=== PATIENT | male | born 1940 | race Caucasian/White ===

== ENCOUNTER → 2019-02-16 | Outpatient (CLI) | payer OTHER, MEDICARE ==
[~2019-02-16] MED LIST: ACET-93 PO; ASPI-983 PO; ASPI-999 PO; ATOR10TA66 PO; ATOR20TA66 PO; CLOP75TA28 PO; GLIM2TAB PO; INSU100I29 SQ; METF-397 PO; METO-387 PO
== END ==
LOC: LABNPT 14:23
PROVIDERS: ATTEND Nurse Practitioner Family
DX: Z01.89 Encounter for other specified special examinations (principal)
CPT/HCPCS: 85652

== ENCOUNTER → 2019-04-13 | Outpatient (CLI) | payer MEDICARE ==
[2019-04-13 10:47] LABS: BASOPHILS % (AUTO) 0 % (0-10); EOSINOPHILS % (AUTO) 0 % (0-10); HEMATOCRIT 39 % (40-54); HEMOGLOBIN 13.1 G/DL (13.3-17.7); LYMPHOCYTES # (AUTO) 2.4 X 10^3 (1.0-4.0); LYMPHOCYTES % (AUTO) 49 % (12-44); MEAN CORPUSCULAR HEMOGLOBIN 28 PG (25-34); MEAN CORPUSCULAR HGB CONC 33 G/DL (32-36); MEAN CORPUSCULAR VOLUME 84 FL (80-99); MEAN PLATELET VOLUME 9.7 FL (7.4-10.4); MONOCYTES # (AUTO) 0.3 X 10^3 (0.0-1.0); MONOCYTES % (AUTO) 5 % (0-12); NEUTROPHILS # (AUTO) 2.2 X 10^3 (1.8-7.8); NEUTROPHILS % (AUTO) 45 % (42-75); PLATELET COUNT 362 10^3/uL (130-400); RED CELL DISTRIBUTION WIDTH 13.3 % (10.0-14.5); WHITE BLOOD COUNT 4.8 10^3/uL (4.3-11.0)
[2019-04-13 11:21] LABS: ALANINE AMINOTRANSFERASE 47 U/L (0-55); ALBUMIN 3.4 GM/DL (3.2-4.5); ALKALINE PHOSPHATASE 69 U/L (40-136); BILIRUBIN,TOTAL 0.4 MG/DL (0.1-1.0); BUN/CREATININE RATIO 22; CALCIUM 9.9 MG/DL (8.5-10.1); CARBON DIOXIDE 29 MMOL/L (21-32); CHLORIDE 103 MMOL/L (98-107); CREATININE SERUM 1.13 MG/DL (0.60-1.30); GFR ESTIMATED > 60; GLUCOSE 180 MG/DL (70-105); POTASSIUM 4.6 MMOL/L (3.6-5.0); SODIUM 141 MMOL/L (135-145); TOTAL PROTEIN 7.2 GM/DL (6.4-8.2)
--- NOTE | 2019-04-13 11:29 | Diagnostic Imaging Report ---
INDICATION: History of osteomyelitis. COMPARISON: None FINDINGS: 3 radiographic views of the left foot were obtained. Patient is status post previous amputation of the left great toe. There is gross deformity involving the main first metatarsal. Some areas of underlying lucency are noted. One cannot exclude underlying osteolytic process. Note is also made of probable osteolysis involving the distal phalanx of the second toe. No unexpected radiopaque foreign bodies are seen. Moderate degenerative changes of the midfoot are noted. IMPRESSION: 1. Previous amputation of the great toe of the left foot. 2. Gross deformity of the first metatarsal. Osteomyelitis cannot be excluded based on radiographs alone. If there is concern for osteomyelitis, MRI is recommended. 3. Probable erosive process to the second distal phalanx also concerning for underlying osteomyelitis. Dictated by: Dictated on workstation # [id number]
== END ==
LOC: RAD 10:13
PROVIDERS: ATTEND Surgery
DX: E11.621 Type 2 diabetes mellitus with foot ulcer (principal); E11.42 Type 2 diabetes mellitus with diabetic polyneuropathy; L97.526 Non-pressure chronic ulcer of other part of left foot with bone involvement without evidence of necrosis; Z87.39 Personal history of other diseases of the musculoskeletal system and connective tissue; Z89.412 Acquired absence of left great toe
CPT/HCPCS: 36415; 73630; 80053; 83036; 84134; 85025

== ENCOUNTER → 2019-04-13 | Outpatient (CLI) | payer MEDICARE | LOC: WOUNDCARE 08:03 | PROVIDERS: ATTEND Surgery | DX: E11.621 Type 2 diabetes mellitus with foot ulcer (principal); E11.42 Type 2 diabetes mellitus with diabetic polyneuropathy; E11.52 Type 2 diabetes mellitus with diabetic peripheral angiopathy with gangrene; L97.526 Non-pressure chronic ulcer of other part of left foot with bone involvement without evidence of necrosis; I96 Gangrene, not elsewhere classified; M86.472 Chronic osteomyelitis with draining sinus, left ankle and foot | CPT/HCPCS: 11042; 87070; 87077; 87205 ==

== ENCOUNTER → 2019-06-15 | Outpatient (CLI) | payer MEDICARE | LOC: WOUNDCARE 08:04 | PROVIDERS: ATTEND Surgery | DX: E11.621 Type 2 diabetes mellitus with foot ulcer (principal); E11.42 Type 2 diabetes mellitus with diabetic polyneuropathy; L97.522 Non-pressure chronic ulcer of other part of left foot with fat layer exposed; I70.245 Atherosclerosis of native arteries of left leg with ulceration of other part of foot | CPT/HCPCS: 99214 ==

== ENCOUNTER → 2019-07-22 | Outpatient (CLI) | payer MEDICARE | LOC: WOUNDCARE 11:01 | PROVIDERS: ATTEND Surgery | DX: E11.621 Type 2 diabetes mellitus with foot ulcer (principal); E11.42 Type 2 diabetes mellitus with diabetic polyneuropathy; E11.52 Type 2 diabetes mellitus with diabetic peripheral angiopathy with gangrene; L97.522 Non-pressure chronic ulcer of other part of left foot with fat layer exposed; I70.245 Atherosclerosis of native arteries of left leg with ulceration of other part of foot | CPT/HCPCS: 99213 ==

== ENCOUNTER 2019-09-01 08:24 | Outpatient (RCR) | payer MEDICARE ==
[~2019-09-01 08:24] MED LIST changes: -GLIM2TAB PO; +GLIM2TAB2 PO; -METO-387 PO; +MTP25TSR PO
== END 2019-09-01 12:00 | disposition home or self-care (01) ==
LOC: WOUNDCARE 08:24
PROVIDERS: ATTEND Orthopaedic Surgery Hand Surgery
DX: E11.621 Type 2 diabetes mellitus with foot ulcer (principal); E11.42 Type 2 diabetes mellitus with diabetic polyneuropathy; L97.522 Non-pressure chronic ulcer of other part of left foot with fat layer exposed; I70.245 Atherosclerosis of native arteries of left leg with ulceration of other part of foot
CPT/HCPCS: 82962; 99183; 99211

== ENCOUNTER 2019-09-11 13:58 | Inpatient (IN) | payer MEDICARE ==
[~2019-09-11] VITALS: Ht 182.9 cm; Wt 104.1 kg
[2019-09-14] MEDS ORDERED: FLEET ENEMA ADULT 1 EA BTL PR PRN (12:45)
[2019-09-14] MEDS ORDERED: ALPRAZolam 0.25 MG (XANAX) TAB PO PRN (12:45)
[2019-09-14] MEDS ORDERED: ONDANSETRON 4 MG (ZOFRAN) ORAL DISSOLVE TAB PO PRN (12:45)
[2019-09-14] MEDS ORDERED: diphenhydrAMINE 25 MG TAB (BENADRYL) PO PRN (12:45)
[2019-09-14] MEDS ORDERED: BISACODYL 10 MG SUPP (DULCOLAX) PR PRN (12:45)
[2019-09-14] MEDS ORDERED: DOCUSATE SODIUM 100 MG (COLACE) CAP PO PRN (12:45)
[2019-09-14] MEDS ORDERED: CALCIUM CARBONATE 500 MG (TUMS) TAB.CHEW PO PRN (12:45)
[2019-09-14] MEDS ORDERED: MELATONIN 3 MG TABLET PO PRN (12:45)
[2019-09-14] MEDS ORDERED: LACTULOSE SYRUP 10GM/15ML (ENULOSE) 30ML UDC PO PRN (12:45)
[2019-09-14] MEDS ORDERED: LOPERAMIDE 2 MG (IMODIUM) TABLET PO PRN (12:45)
[2019-09-14] MEDS ORDERED: guaiFENesin/CODEINE (ROBITUSSIN AC) 10ML UDC PO PRN (12:45)
[2019-09-14] MEDS ORDERED: ASPI-999 PO (15:31)
[2019-09-14] MEDS ORDERED: MTP25TSR PO (15:36)
[2019-09-14] MEDS ORDERED: SITA100T12 PO (15:36)
[2019-09-14] MEDS ORDERED: POLY17PO6 PO (15:36)
[2019-09-14] MEDS ORDERED: MELO7.5T46 PO (15:36)
[2019-09-14] MEDS ORDERED: CLOP75TA69 PO (15:36)
[2019-09-14] MEDS ORDERED: GABA-486 PO (15:36)
[2019-09-14] MEDS ORDERED: ATOR20TA66 PO (15:36)
[2019-09-14] MEDS ORDERED: SENN-145 PO (15:36)
--- NOTE | 2019-09-14 15:38 | NUR ---
ENTERED THE MED REC USING THE DISCHARGE FROM AFTER I SPEAK WITH THE PT I WILL UPDATE THE MED REC AND NOTES NEEDED Addendum: 09/15/19 at 1426 by KRISTAL CONNOR [facility] SPOKE WITH THE PT, WENT THRU THE EXT MED HISTORY ,CALLED [employer] [facility] AND CALLED HER EYE DR TO COMPLETE THE MED REC. THE DISCHARGE ORDER FROM [facility] ARE TO START: FUROSEMIDE 40MG 1 DAILY POTASSIUM 10 MEQ: 1 DAILY PER DISCHARGE SHE IS TO STOP: BYSTOLIC 5MG 1 DAILY TIMOLOL: THIS WAS ON THE DISCHARGE TO CONTINUE USE AND THE PT SAID SHE DOES USE THIS EYE DROP. HOWEVER WHEN I CHECKED WITH [facility] THEY HAD NOT FILLED THIS MEDICATION FOR AT LEAST 6 MONTHS. I THEM REACHED OUT TO DR. KRUNAL REA TO SEE IF SAMPLES COULD EXPLAIN THIS LAPSE IN FILLING- UNFORTUNATELY THEY DID NOT HAVE SAMPLES OF THIS MEDICATION. DUE TO THIS I HAVE LEFT THIS OFF THE FINAL MED REC ESTRACE 0.5MG TAKE 1 TAB TWICE WEEKLY (MON AND FRI) HOWEVER THIS IS NOT LISTED ON THE DISCHARGE ORDERS. I DID INCLUDE THIS IN THE FINAL MED REC AND I HAVE REACHED OUT TO [facility] FOR CLARIFICATION. OXYBUTYNIN ER: DISCHARGE SAYS TO TAKE OXYBUTYNIN ER 5MG- AND THE NEXT LINE SAYS 10MG /ORAL/ONCE A DAY. SHE PREVIOUSLY WAS ON THE 10MG BUT I DID PUT ON THE FIRST MED REC THE OXYBUTYNIN ER 5MG NOT REALIZING THE DISCREPANCY. I HAVE PUT IN A CALL THE [facility] TO FIND OUT WHICH STRENGTH THEY WANTED TO DISCHARGE HER WITH AND WHEN I HEAR FROM THEM I WILL UPDATE MED REC/NOTES NEEDED. Addendum: 09/15/19 at 1513 by KRISTAL CONNOR CPhT DISREGARD THE ABOVE NOTE ABOUT DAVE MARTINEZ
[2019-09-14 17:30] VITALS: BP 148/71
--- NOTE | 2019-09-14 17:30 | NUR ---
Diamante Shira admitted to room 224-1, with an admitting diagnosis of left BKA, on 09/14/19 from via private vehicle, accompanied by family.SHIRA RAMIREZ introduced to surroundings, call light, bed controls, phone, TV, temperature control, lights, meal times, smoking policy, visitor policy, side rail policy, bathrooms and showers. Patient Rights given to patient in the handbook.SHIRA RAMIREZ verbalizes understanding that [facility] is not responsible for the loss or damage to any personal effects or valuables that are kept in the patients posession during their hospitalization. The following Patient Care Plans were discussed with the patient: Discharge Planning, impaired mobility and amputation. SHIRA RAMIREZ verbalizes understanding of Interdisciplinary Patient Education. Patient and/or family were informed about the Rapid Response Team and its purpose. Patient received Patient Rights Booklet, which includes Privacy Act Statement and Data Collection Information Summary.
[2019-09-14 17:52] VITALS: BP 148/71
--- NOTE | 2019-09-14 18:30 | PM&R Post Admission Assessment ---
PM&R HP Date of Visit: Sep 14, 2019 Time of Visit: 18:30 History of Present Illness CC: Left BKA HPI: This is an 79yoWM clinic patient of Dr Reaves and Dr Callejas who presents to IRF in need of recovery following a lengthy hospital course for left DM ulcer which ultimately failed aggressive wound care management and required a left BKA. DM remains somewhat labile post op but overall he has recovered well and ready to participate in therapy in order to return home with his of 59 years. PLOF was independent of all ADL's. 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[place]) Alcohol Use: Denies Use Alcohol Beverage of Choice: Whiskey Smoking Status: Never a Smoker Type Used: Cigars Recent Foreign Travel: No Contact w/other who traveled: No Recent Hopitalizations: No Recent Infectious Disease Expo: No Immunizations Up To Date Date of Pneumonia Vaccine: May 28, 2017 Date of Influenza Vaccine: May 28, 2018 Seasonal Allergies Seasonal Allergies: Yes Past Medical History Surgeries: Orthopedic Respiratory: Sleep Apnea Currently Using CPAP: Yes Currently Using BIPAP: No Cardiac: High Cholesterol, Hypertension, Peripheral Vascular Neurological: Neuropathy Genitourinary: Kidney Stones Endocrine: Diabetes, Non-Insulin dep History of Blood Disorders: No PM&R Allergy/Meds/Data Review Allergies Coded Allergies: iodine (Verified Allergy, Unknown, 09/28/17) Home Medications Scheduled Aspirin (Aspirin), 81 MG PO DAILY WITH FOOD, (Reported) Atorvastatin Calcium (Atorvastatin Calcium), 20 MG PO DAILY, (Reported) Clopidogrel Bisulfate (Plavix), 75 MG PO DAILY, (Reported) Gabapentin (Gabapentin), 200 MG PO TID, (Reported) Glimepiride (Glimepiride), 2 MG PO BID, (Reported) Insulin Detemir (Levemir Flextouch), 45 UNITS SQ DAILY, (Reported) Meloxicam (Meloxicam), 7.5 MG PO DAILY, (Reported) Metoprolol Succinate (Metoprolol Succinate), 25 MG PO DAILY, (Reported) Sennosides/Docusate Sodium (Senna S Tablet), 1 EACH PO BID, (Reported) Sitagliptin Phosphate (Januvia), 100 MG PO DAILY, (Reported) Scheduled PRN Acetaminophen (Acetaminophen), 1,000 MG PO Q6H PRN for PAIN-MILD, (Reported) Polyethylene Glycol 3350 (Miralax), 17 GM PO DAILY PRN for CONSTIPATION-2ND LINE, (Reported) Discontinued Medications Aspirin (Aspirin), 81 MG PO DAILY Discontinued Reason: Duplicate Order Atorvastatin Calcium (Atorvastatin Calcium), 20 MG PO DAILY Discontinued Reason: Duplicate Order Clopidogrel Bisulfate (Clopidogrel), 75 MG PO DAILY Discontinued Reason: Duplicate Order Metformin HCl (Metformin HCl), 1,000 MG PO 0800,1700, (Reported) Discontinued Reason: No Longer Taking Metformin HCl (Metformin HCl), 500 MG PO 1200, (Reported) Discontinued Reason: No Longer Taking Metoprolol Succinate (Metoprolol Succinate), 25 MG PO DAILY Discontinued Reason: No Longer Taking Current Medications Current Medications Reviewed Laboratory Data Laboratory Tests 09/14/19 17:58: Glucometer 239H Review of Systems Constitutional: see HPI, weakness Musculoskeletal: other (left stump discomfort) Physical Exam Physical Exam Vital Signs Vital Signs - First Documented 09/14/19 17:30 Temp 36.4 Pulse 76 Resp 16 B/P (MAP) 148/71 (96) Pulse Ox 96 O2 Delivery Room Air Capillary Refill : Height, Weight, BMI Height: 6'0.00" Weight: 245lbs. 0.0oz. 111.638655ml; 31.53 BMI Method: General Appearance: No Apparent Distress, WD/WN Eyes: Bilateral Eye Normal Inspection, Bilateral Eye PERRL HEENT: PERRL/EOMI, Normal ENT Inspection, Pharynx Normal Neck: Full Range of Motion, Normal Inspection, Non Tender, Supple, Carotid Bruit Respiratory: Chest Non Tender, Lungs Clear, Normal Breath Sounds, No Accessory Muscle Use, No Respiratory Distress Cardiovascular: Regular Rate, Rhythm, No Edema, No Gallop, No JVD, No Murmur, Normal Peripheral Pulses Gastrointestinal: Normal Bowel Sounds, No Organomegaly, No Pulsatile Mass, Non Tender, Soft Back: Normal Inspection, No CVA Tenderness, No Vertebral Tenderness Extremity: Normal Capillary Refill, Normal Inspection, Normal Range of Motion, Non Tender, No Calf Tenderness, No Pedal Edema, Other (left BKA) Neurologic/Psychiatric: Alert, Oriented x3, No Motor/Sensory Deficits, Normal 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, 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 Norm as Tested Skin: Normal Color, Warm/Dry Lymphatic: No Adenopathy PM&R Medical Assessment & Plan REHAB/MEDICAL ASSESSMENT AND PLAN: REHAB IMPAIRMENT GROUP: Left BKA ETIOLOGIC DIAGNOSIS: Left BKA The comorbidities that impact the patients function and/or functional outcome by: Labile DM control, PATRICK REHAB PLAN: The patient is being admitted to our comprehensive inpatient rehabilitation facility and can tolerate the intensity of service consisting of at least: 180 minutes of therapy a day, 5 out of 7 days a week Rehab treatment will consist of: PT and OT will focus on regaining strength and ADL's in order to return home with The patient/family has a good understanding of our discharge process and will benefit from an interdisciplinary inpatient rehabilitation program. The patient has potential to make improvement and is in need of at least two of the following multidisciplinary therapies including but not limited to physical, occupational, speech, and prosthetics and orthotics. Additionally the patient will need services from respiratory, nutritional services, wound care, psychology, etc. (Customize this to each patient). Given the patients complex condition and risk of further medical complications, rehabilitation services cannot be safely or effectively provided at a lower level of care such as a fdc facility. BARRIERS TO DISCHARGE: Large body frame with new left BKA ESTIMATED LOS: 7 days DISPOSITION: Home RELEVANT CHANGES SINCE PREADMISSION SCREENING: I have compared the patients medical and functional status at the time of the preadmission screening and there are: no changes PROGNOSIS: Good REHABILITATION GOALS: 1. PT and OT will focus on regaining strength and ADL's in order to return home with All the above goals were reviewed with the patient and he/she is in agreement. By signing this document, I acknowledge that I have personally performed a full physical examination on this patient within 24 hours of admission to this inpatient rehabilitation facility and have determined the patient to be able to tolerate the above course of treatment at an intensive level for a reasonable period of time. I will be completing a detailed individualized Plan of Care for this patient by day #4 of the patients stay based upon the Preadmission Screen, the Post-Admission Evaluation, and the therapy evaluations. Admission Dx/Comorbidities: (1) Left below-knee amputee ICD Codes: Z89.512 - Acquired absence of left leg below knee (2) Diabetes mellitus ICD Codes: E11.9 - Type 2 diabetes mellitus without complications (3) Hypertension ICD Codes: I10 - Essential (primary) hypertension (4) CAD (coronary artery disease) ICD Codes: I25.10 - Atherosclerotic heart disease of [place] coronary artery without angina pectoris (5) PVD (peripheral vascular disease) ICD Codes: I73.9 - Peripheral vascular disease, unspecified (6) PATRICK on CPAP ICD Codes: G47.33 - Obstructive sleep apnea (adult) (pediatric); Z99.89 - Dependence on other enabling machines and devices DAMION WHITFIELD DO Sep 14, 2019 18:30
[2019-09-14] MEDS: ENOXAPARIN 40 MG/0.4 ML (LOVENOX) SYR SC SCH (18:32)
[2019-09-14] MEDS: inSUlin ASPART (NovoLOG) 1 UNIT/0.01 ML (CHARGE PER UNIT) SC SCH ×2 (18:33→22:07)
[2019-09-14] MEDS ORDERED: polyethylene glycoL POWDER 17 GM (MIRALAX) PACK PO PRN (18:45)
[2019-09-14] MEDS ORDERED: ACETAMINOPHEN 500 MG TAB (TYLENOL) PO PRN (18:45)
[2019-09-14] MEDS: GLIMEPIRIDE 2 MG (AMARYL) TAB PO SCH (19:18)
[2019-09-14] MEDS ORDERED: inSUlin ASPART (NovoLOG) 1 UNIT/0.01 ML (CHARGE PER UNIT) SC SCH (21:00)
[2019-09-14] MEDS ORDERED: SENNA W/DOCUSATE (SENOKOT S) TABLET PO SCH (21:00)
[2019-09-14] MEDS: GABAPENTIN 100 MG (NEURONTIN) CAP PO SCH (22:07)
[2019-09-14] MEDS: polyethylene glycoL POWDER 17 GM (MIRALAX) PACK PO SCH (22:08)
[2019-09-14] MEDS: DOCUSATE SODIUM 100 MG (COLACE) CAP PO SCH (22:12)
[2019-09-14] MEDS: SENNA W/DOCUSATE (SENOKOT S) TABLET PO SCH (22:12)
[2019-09-15 05:16] VITALS: BP 159/70
[2019-09-15] MEDS: inSUlin ASPART (NovoLOG) 1 UNIT/0.01 ML (CHARGE PER UNIT) SC SCH ×4 (06:13→21:05)
[2019-09-15] MEDS: LINAGLIPTIN (TRADJENTA) 5 MG TABLET PO SCH (06:15)
[2019-09-15] MEDS: GLIMEPIRIDE 2 MG (AMARYL) TAB PO SCH ×2 (06:15→17:32)
[2019-09-15 06:55] LABS: BASOPHILS % (AUTO) 0 % (0-10); EOSINOPHILS % (AUTO) 1 % (0-10); HEMATOCRIT 37 % (40-54); HEMOGLOBIN 12.2 G/DL (13.3-17.7); LYMPHOCYTES % (AUTO) 49 % (12-44); MEAN CORPUSCULAR HEMOGLOBIN 27 PG (25-34); MEAN CORPUSCULAR HGB CONC 33 G/DL (32-36); MEAN CORPUSCULAR VOLUME 82 FL (80-99); MEAN PLATELET VOLUME 10.4 FL (7.4-10.4); MONOCYTES # (AUTO) 0.5 X 10^3 (0.0-1.0); MONOCYTES % (AUTO) 12 % (0-12); NEUTROPHILS # (AUTO) 1.5 X 10^3 (1.8-7.8); NEUTROPHILS % (AUTO) 38 % (42-75); PLATELET COUNT 331 10^3/uL (130-400); RED CELL DISTRIBUTION WIDTH 14.9 % (10.0-14.5)
[2019-09-15 07:15] LABS: ALANINE AMINOTRANSFERASE 28 U/L (0-55); ALBUMIN 3.2 GM/DL (3.2-4.5); ALKALINE PHOSPHATASE 48 U/L (40-136); BILIRUBIN,TOTAL 0.5 MG/DL (0.1-1.0); BUN/CREATININE RATIO 19; CARBON DIOXIDE 25 MMOL/L (21-32); CHLORIDE 103 MMOL/L (98-107); GFR ESTIMATED > 60; GLUCOSE 136 MG/DL (70-105); POTASSIUM 4.3 MMOL/L (3.6-5.0); SODIUM 137 MMOL/L (135-145); TOTAL PROTEIN 6.7 GM/DL (6.4-8.2)
--- NOTE | 2019-09-15 08:05 | Consultation-Cardiology ---
HPI-Cardiology Cardiology Consultation: Date of Consultation 09/15/19 Time Seen by a Provider: 11:15 Date of Admission 09-14-2019 Attending Physician Lala Ellington DO Admitting Physician Oliver Reaves DO Consulting Physician Michel Callejas MD HPI: Chief Complaint: S/P L BKA PVD Mr. Bobby is an 79 year old male who has been admitted to 224 from [facility]. He reports he developed osteomyelitis to his left foot following a non-healing wound. He was seen at [facility] in late August 2019 with swelling, redness, pain of the left foot. He was transferred to [facility]. He underwent L BKA on 09-08-2019 at [facility]. He reports he is feeling well. No c/o CP, palpitations, dyspnea. Review of Systems-Cardiology Review of Systems Constitutional: No chills, No fever, No malaise Eyes: No vision change Ears/Nose/Throat: No recent hearing loss Respiratory: As described under HPI Cardiovascular: As described under HPI Gastrointestinal: No diarrhea, No nausea, No vomiting Genitourinary: No dysuria Musculoskeletal: other (s/p L BKA) Skin: No rash on exposed areas, No ulcerations on exposed areas Psychiatric/Neurological: No anxiety, No depression, No seizure, No focal weakness, No syncope Hematologic: No bleeding abnormalities IND-Yqyfyi-Bosjhk Hx Patient Social History Marrital Status: 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 Family Medical History Family Medical History: Does not report fam history of early CAD or SCD Allergies and Home Medications Allergies Coded Allergies: iodine (Verified Allergy, Unknown, 09/28/17) Home Medications Acetaminophen 500 Mg Tablet, 1,000 MG PO Q6H PRN for PAIN-MILD, (Reported) TAKES 2 (500 MG) TABLETS Aspirin 325 Mg Tablet.dr, 325 MG PO DAILY, (Reported) Atorvastatin Calcium 20 Mg Tablet, 20 MG PO DAILY, (Reported) Clopidogrel Bisulfate 75 Mg Tablet, 75 MG PO DAILY, (Reported) Glimepiride 2 Mg Tablet, 2 MG PO BID, (Reported) Insulin Detemir 100 Unit/1 Ml Insuln.pen, 36 UNITS SQ DAILY, (Reported) Metoprolol Succinate 25 Mg Tab.er.24h, 25 MG PO DAILY, (Reported) Sitagliptin Phosphate 100 Mg Tablet, 100 MG PO DAILY, (Reported) Patient Home Medication List Home Medication List Reviewed: Yes Physical Exam-Cardiology Physical Exam Vital Signs/I&O 09/16/19 09/17/19 20:10 05:27 Temp 36.3 Pulse 70 Resp 20 B/P (MAP) 144/71 (95) Pulse Ox 97 O2 Delivery Room Air NIV CPAP 09/17/19 00:00 Intake Total 1050 ml Output Total 1150 ml Balance -100 ml Capillary Refill : Less Than 3 Seconds Constitutional: AAO x 3, well-developed, well-nourished HEENT: PERRL, hearing is well preserved, oral hygience is good Neck: No carotid bruit; carotid pulses are 2 + bilaterally Respiratory: No accessory muscle use, No respiratory distress; chest expansion is symmetric, chest is bilaterally symmetric, lungs clear to auscultation Cardiovascular: regular rate-rhythm; No JVD; S1 and S2 Gastrointestinal: No tender; soft, round, audible bowel sounds Extremities: other (L BKA - dressing in place and not removed) Neurologic/Psychiatric: grossly intact (moves extremities) Skin: No rash on exposed areas, No ulcerations on exposed areas Data Review Labs Laboratory Tests 09/16/19 12:17: Glucometer 183H 09/16/19 15:48: Glucometer 189H 09/16/19 20:42: Glucometer 221H 09/17/19 05:23: Glucometer 149H A/P-Cardiology Assessment/Admission Diagnosis 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 Souza at [facility] d/t osteomyelitis CAD. Acute inferolateral STEMI on 09/28/17, treated with primary PCI. Card cath on 09/28/17: The right coronary artery had 80% proximal stenosis to which successful stenting was carried out with an Alpine Xience 4.0 x 28 mm stent. The left anterior descending artery had diffuse disease, including subtotal occlusions in its distal portion, which were not amenable to intervention on account of a very small vessel caliber. The left circumflex artery had diffuse moderate to moderately severe disease and was of small caliber. LVEF 60%. Significantly elevated left ventricular end-diastolic pressure Echo on 09/29/17: difficult study, LVEF approx 60% DM II Chronic daily tobacco use, quit in December 2018 Hyperlipidemia Obesity with BMI approx 33 PAD: s/p multiple bilateral interventions at [facility] in the half 2018 S/p L great toe amputation at [facility] in February 2019. This was followed by multiple PAD interventions (details unavailable); currently post L BKA on 09-08-2019 Discussion and Recomendations Available records from [facility] reviewed Continue current regimen including ASA and Plavix d/t CAD/PVD Continue Lovenox for DVT prophylaxis Monitor lab from time to time We would like to thank medical services for this consult Further recs will be based on his hospital course Clinical Quality Measures DVT/VTE Risk/Contraindication: Risk Factor Score Per Nursin RFS Level Per Nursing on Admit: 4+=Very High CHANTEL BRENNAN Sep 15, 2019 08:04
--- NOTE | 2019-09-15 08:55 | ST Cognitive Linguistic Eval ---
Speech Evaluation-General Medical Diagnosis Left BKA Onset Date: Sep 15, 2019 Therapy Diagnosis Therapy Diagnosis: Cognitive-communication Referral Referring Physician: Dr. Ellington Reason for Referral: Evaluation/Treatment Medical History Reviewed History: Yes Social History Current Living Status: Spouse Speech PLF-Current Status Prior Level of Function Patient lived at home and was independent for most of his daily needs. Subjective Patient was pleasant and cooperative with the cognitive assessment. Language Eval: Auditory Comprehends Simple Yes/No Ques: Functional Indent/Objects Multiple Luz: Functional Ident/Pics in Multiple Luz: Functional Follows 1-Step Commands: Functional Follows Complex Directions: Functional Follows General Conversations: Functional Language Eval: Verbal Language Completes Spontaneous Greeting: Functional Produces Auto, Serial Info: Functional Imitates Simple Words/Phrases: Functional Word Finding: Functional Requests Basic Needs: Functional States Basic Personal Info: Functional Expresses Complex Ideas: Functional Objective Cognitive Domain Attention: WNL Memory: Mild Problem Solving: Functional Executive Functions: WNL Visuospatial Skills: WNL Composite Severity Rating: WNL Clock Drawing Severity Rating: WNL Objective Formal/Standardized Tests [facility] Status ([facility] [[email or web address] Results 28/30, within normal range of function Oral Motor/Speech Production Within Normal Limits Impression The patient is a pleasant man who was admitted to the ARU s/p BKA. Patient was given the SLUMS at bedside with a score of 28/30 obtained. This score is within the normal range of function. At this time the patient does not require further ST services. Speech Patient Assess Expression of Ideas/Wants: Expression (4) Understanding Verbal Content: Understands (4) Brief Interview-Mental Status: Yes Repetition of Three Words: Three (3) Temporal Orientation: Year: Correct (3) Temporal Orientation: Month: Accurate within 5 days(2) Temporal Orientation: Day: Correct (1) Recall : Wear to say "Sock": Yes, no cue required (2) Recall : Color: Yes, after cueing (1) Recall : Bed: Yes,after cueing (1) Memory/Recall Ability: Location of own room, That he or she is in a hsp/hsp unit Speech-Plan Patient/Family Goals Patient/Family Goals: The patient plans on returning to his home post rehab. Treatment Plan Speech Therapy Treatment Plan: Discontinue ST Treatment Duration: Sep 15, 2019 Frequency: 1 time per week Estimated Hrs Per Day: .25 hour per day Rehab Potential: Good Barriers to Learning: None identified Pt/Family Agrees to Plan: Yes Safety Risks/Education Teaching Recipient: Patient Teaching Methods: Discussion Response to Teaching: Verbalize Understanding Education Topics Provided: Safety within his room and communication of his wants/needs Time Speech Therapy Time In: 08:30 Speech Therapy Time Out: 09:00 Total Billed Time: 15 Billed Treatment Time 1, SPSNDCOMP STEPH Dai Sep 15, 2019 08:55
[2019-09-15] MEDS ORDERED: NON-FORMULARY MEDICATION 1 EA EA (Sitagliptin Phosphate (Januvia) 100 MG) PO SCH (09:00)
[2019-09-15] MEDS ORDERED: NON-FORMULARY MEDICATION 1 EA EA (Insulin Detemir (Levemir Flextouch) 45 UNITS) SQ SCH (09:00)
[2019-09-15] MEDS: polyethylene glycoL POWDER 17 GM (MIRALAX) PACK PO SCH ×2 (09:00→20:40)
--- NOTE | 2019-09-15 09:04 | PM&R Progress Note ---
Subjective HPI/CC On Admission Date Seen by Provider: Sep 15, 2019 Time Seen by Provider: 09:15 Subjective/Events-last exam Pt slept very well. Doing well overall. Good standing and pivoting. No falls. Pain is well controlled. Blood sugars reviewed. Labs reviewed. Checked meds and labs. Reviewed therapy notes. Conferred with RN. Review of Systems General: Fatigue Objective Exam Vital Signs Vital Signs Date Time Temp Pulse Resp B/P (MAP) Pulse Ox O2 Delivery O2 Flow Rate FiO2 09/15/19 18:24 36.2 74 16 142/70 (94) 95 Room Air Capillary Refill : Less Than 3 Seconds General Appearance: No Apparent Distress, WD/WN HEENT: PERRL/EOMI, Normal ENT Inspection, Pharynx Normal Neck: Full Range of Motion, Normal Inspection, Non Tender, Supple, Carotid Bruit Respiratory: Chest Non Tender, Lungs Clear, Normal Breath Sounds, No Accessory Muscle Use, No Respiratory Distress Cardiovascular: Regular Rate, Rhythm, No Edema, No Gallop, No JVD, No Murmur, Normal Peripheral Pulses Gastrointestinal: Normal Bowel Sounds, No Organomegaly, No Pulsatile Mass, Non Tender, Soft Back: Normal Inspection, No CVA Tenderness, No Vertebral Tenderness Extremity: Normal Capillary Refill, Normal Inspection, Normal Range of Motion, Non Tender, No Calf Tenderness, No Pedal Edema, Other (left BKA) Neurologic/Psychiatric: Alert, Oriented x3, No Motor/Sensory Deficits, Normal Mood/Affect, mate relief II-XII Norm as Tested Skin: Normal Color, Warm/Dry Lymphatic: No Adenopathy Results/Procedures Lab Laboratory Tests 09/15/19 05:40 Patient resulted labs reviewed. FIM Transfers Therapy Code Descriptions/Definitions Functional [place] Measure: 0=Not Assessed/NA 4=Minimal Assistance 1=Total Assistance 5=Supervision or Setup 2=Maximal Assistance 6=Modified [place] 3=Moderate Assistance 7=Complete IndependenceSCALE: Activities may be completed with or without assistive devices. 3-Bjfoptrepj-gbijkkb completes the activity by him/herself with no assistance from a helper. 5-Set-up or Clean-up Assistance-helper sets up or cleans up; patient completes activity. [place] assists only prior to or following the activity. 4-Supervision or Touching Assistance-helper provides verbal cues and/or touching/steadying and/or contact guard assistance as patient completes activity. Assistance may be provided throughout the activity or intermittently. 3-Partial/Moderate Assistance-helper does LESS THAN HALF the effort. [place] lifts, holds or supports trunk or limbs, but provides less than half the effort. 2-Substantial/Maximal Assistance-helper does MORE THAN HALF the effort. [place] lifts or holds trunk or limbs and provides more than half the effort. 3-Hyufrdpbp-tbzntj does ALL the effort. Patient does none of the effort to complete the activity. Or, the assistance of 2 or more helpers is required for the patient to complete the activity. If activity was not attempted, code reason: 7-Patient Refused. 9-Not Applicable-not attempted and the patient did not perform the activity before the current illness, exacerbation or injury. 10-Not Attempted due to Environmental Limitations-(lack of equipment, weather restraints, etc.). 88-Not Attempted due to Medical Conditions or Safety Concerns. Assessment/Plan Assessment and Plan Assess & Plan/Chief Complaint Assessment: s/p left BKA DM HTN CAD PVD PATRICK on CPAP Plan: CPAP IRF protocol BM regimen (1) Left below-knee amputee (2) Diabetes mellitus (3) Hypertension (4) CAD (coronary artery disease) (5) PVD (peripheral vascular disease) (6) PATRICK on CPAP DAMION WHITFIELD DO Sep 15, 2019 09:04
[2019-09-15] MEDS: ASPIRIN 81 MG CHEW (CHILDREN'S ASA) PO SCH (09:27)
[2019-09-15] MEDS: MELOXICAM 7.5 MG (MOBIC) TABLET PO SCH (09:27)
[2019-09-15] MEDS: GABAPENTIN 100 MG (NEURONTIN) CAP PO SCH ×3 (09:27→20:38)
[2019-09-15] MEDS: CLOPIDOGREL 75 MG (PLAVIX) TABLET PO SCH (09:27)
[2019-09-15] MEDS: DOCUSATE SODIUM 100 MG (COLACE) CAP PO SCH ×2 (09:27→20:40)
[2019-09-15] MEDS: SENNA W/DOCUSATE (SENOKOT S) TABLET PO SCH ×2 (09:27→20:40)
--- NOTE | 2019-09-15 09:57 | Physical Therapy Evaluation ---
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, 2019 Therapy Diagnosis Therapy Diagnosis: impaired mobility, strength, endurance, balance, ROM Height/Weight Height (Feet): 6 Height (Inches): 0.00 Weight (Pounds): 245 Weight (Ounces): 0.0 Precautions Precautions/Isolations: Fall Prevention, Standard Precautions Weight Bear Status Left Lower Extremity: Left Non Weight Bearing Referral Physician: Lala Ellington DO Reason for Referral: Evaluation/Treatment Medical History Reviewed History: Yes Social History Current Living Status: Spouse Entry Into Home: Stairs Without Railing PT Steps Into Home: 3 Prior Prior Level of Function SCALE: Activities may be completed with or without assistive devices. 6-Efxzrzyxsr-lfldzco completes the activity by him/herself with no assistance from a helper. 5-Set-up or Clean-up Assistance-helper sets up or cleans up; patient completes activity. [place] assists only prior to or following the activity. 4-Supervision or Touching Assistance-helper provides verbal cues and/or touching/steadying and/or contact guard assistance as patient completes activity. Assistance may be provided throughout the activity or intermittently. 3-Partial/Moderate Assistance-helper does LESS THAN HALF the effort. [place] lifts, holds or supports trunk or limbs, but provides less than half the effort. 2-Substantial/Maximal Assistance-helper does MORE THAN HALF the effort. [place] lifts or holds trunk or limbs and provides more than half the effort. 9-Qghkjnueg-noruvx does ALL the effort. Patient does none of the effort to complete the activity. Or, the assistance of 2 or more helpers is required for the patient to complete the activity. If activity was not attempted, code reason: 7-Patient Refused. 9-Not Applicable-not attempted and the patient did not perform the activity before the current illness, exacerbation or injury. 10-Not Attempted due to Environmental Limitations-(lack of equipment, weather restraints, etc.). 88-Not Attempted due to Medical Conditions or Safety Concerns. Bed Mobility: 6 Transfers (B,C,W/C): 6 Gait: 6 Stairs: 6 Indoor Mobility (Ambulation): Independent Stairs: Independent PT Evaluation-Current Subjective Patient in bed pre tx, agrees to PT, states he doesn't really have any pain, needs dressed lower and he puts on pajama pants with independence. Pt/Family Goals "to get stronger" Objective Patient Orientation: Normal For Age ROM/Strength ROM Lower Extremities RLE WNL, LLE has knee extension brace on Strength Lower Extremities RLE 4+/5 gross Sensory Vision: Wears Glasses Hearing: Functional Sensation Right Lower Extremit: Impaired Sensation Left Lower Extremity: Impaired Sensation Lower Extremities Patient has decreased light touch sensation in right foot. Transfers Roll Left to Right (QC): 6 Sit to Lying (QC): 4 Lying to Sitting/Side of Bed(Q: 4 Sit to Stand (QC): 4 Chair/Hoo-am-Kymta Xfer(QC): 4 Toilet Transfer: 4 Car Transfer (QC): 4 Patient performs bed mobility with independence, supine <-> sit with SBA, sit <- > stand with CGA, transfers with CGA, toilet transfer CGA, car transfer CGA. Needs occasional cues for WC and arm positioning. Gait Does the Patient Walk?: Yes Mode of Locomotion: Both Anticipated Mode of Locomotion: Both Walk 10 feet (QC): 4 Walk 50 ft with 2 Turns(QC): 88 Walk 150 ft (QC): 88 Walking 10ft/uneven surface-QC: 88 Distance: 10' Gait Assistive Device: FWW Comments/Gait Description Patient ambulated 10' with a rolling walker with CGA. He has poor foot clearance and cannot swing through with right leg (hops on right leg) with fatigue. Wheelchair Training Does the Pt Use a Wheelchair?: Yes Distance: 150'x2 Wheel 50 ft with 2 turns (QC): 4 Wheel 150 ft (QC): 4 Type of Wheelchair: Manual SBA Stairs 1 Step (curb) (QC): 88 4 Steps (QC): 88 12 Steps (QC): 88 Patient not safe to perform step due to poor foot clearance and difficulty with ambulation. Balance Sitting Static: Normal Sitting Dynamic: Normal Standing Static: Fair Standing Dynamic: Fair Picking up an Object (QC): 88 Treatment LLE exercises x10: SLR, hip abd, QS, GS, 5 min prone hip extension stretch Assessment/Needs Patient has impaired mobility, strength, endurance, balance, occasional cues for positioning. He has a left knee extension brace and stump protector. Patient in bed post tx, with nurse call, phone, tray, all needs met. Rehab Potential: Fair PT Short Term Goals Short Term Goals Time Frame: Sep 21, 2019 Roll Left & Right: 6 Sit to lyin Lying to sitting on side of be: 6 Sit to stand: 4 Chair/vcq-rk-obror transfer: 4 Walk 10 feet: 4 Walk 50 feet with two turns: 4 PT Skilled Nursing Goals Custodian Manager Goals PT Custodian Manager Goals Time Frame: Oct 05, 2019 Roll Left & Right (QC): 6 Sit to Lying (QC): 6 Lying-Sitting on Side/Bed(QC): 6 Sit to Stand (QC): 6 Chair/Ruv-at-Kihgn Xfer(QC): 6 Toilet Transfer (QC): 6 Car Transfer (QC): 6 Walk 10 feet (QC): 5 Walk 50ft with 2 Turns (QC): 4 Walking 10ft on Uneven Surface: 4 1 Step (curb) (QC): 4 4 Steps (QC): 4 Wheel 50 feet with 2 turns (QC: 6 Type: Manual Wheel 150 feet: 6 Type: Manual PT Plan Problem List Problem List: Activity Tolerance, Functional Strength, Safety, Balance, Gait, Transfer, Bed Mobility, ROM Treatment/Plan Treatment Plan: Continue Plan of Care Treatment Plan: Bed Mobility, Education, Functional Activity Dhaval, Functional Strength, Group Therapy, Gait, Safety, Therapeutic Exercise, Transfers Treatment Duration: Oct 05, 2019 Frequency: At least 5 of 7 days/Wk (IRF) Estimated Hrs Per Day: 1.5 hours per day Patient and/or Family Agrees t: Yes Safety Risks/Education Patient Education: Gait Training, Transfer Techniques, Reviewed Precautions, Correct Positioning, W/C Management, Safety Issues Teaching Recipient: Patient Teaching Methods: Demonstration, Discussion Response to Teaching: Reinforcement Needed Discharge Recommendations Plan Patient will perform bed mobility and transfer training, balance and endurance training, functional strengthening, stair training, gait training, and education, to improve functional mobility and independence at home. Therapy Discharge Recommendati: Home & Family Time/GCodes Time In: 0900 Time Out: 1000 Total Billed Treatment Time: 60 Total Billed Treatment 1 visit EVM 30' EX 15' FA 15' [address] PT Sep 15, 2019 09:57
--- NOTE | 2019-09-15 11:30 | NUR ---
Pt is Worship. [employer] Truck Driver provided prayer and Communion.
--- NOTE | 2019-09-15 11:30 | NUR ---
Spoke with Rama at Dr. Souza (Orthopedic surgeon) office concerning wound treatment and dressing orders. Mary Alice states that dressing is to remain intact until follow up appointment with Surgeon unless it becomes saturated. If JASMINE wrap becomes saturated, apply dry gauze and new JASMINE wrap. Left stump is wrapped in JASMINE wrap with no visible drainage. Thick, white compression stocking is over jasmine wrap and knee is kept immobilized in an Ampu-Shield protective brace.
--- NOTE | 2019-09-15 12:58 | Occupational Therapy Eval ---
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, 2019 Therapy Diagnosis Therapy Diagnosis: decreased self care skills Height/Weight Height (Feet): 6 Height (Inches): 0.00 Weight (Pounds): 245 Weight (Ounces): 0.0 Precautions Precautions/Isolations: Fall Prevention, Standard Precautions Safety Interventions: None Weight Bear Status Weight Bearing Restriction: Non Weight Bearing Location Restriction: L LE Referral Physician: Lala Ellington DO Medical History Pertinent Medical History: CAD, DM, HTN, PVD Additional Medical History sleep apnea, high cholesterol, neuropathy, kidney stones Current History s/p left BKA Reviewed History: Yes Social History Home: Single Level Current Living Status: Spouse Entry Into Home: Stairs Without Railing Steps Into Home: 3 ADL-Prior Level of Function SCALE: Activities may be completed with or without assistive devices. 8-Cqfvzstsdl-joljzfw completes the activity by him/herself with no assistance from a helper. 5-Set-up or Clean-up Assistance-helper sets up or cleans up; patient completes activity. [place] assists only prior to or following the activity. 4-Supervision or Touching Assistance-helper provides verbal cues and/or touching/steadying and/or contact guard assistance as patient completes activity. Assistance may be provided throughout the activity or intermittently. 3-Partial/Moderate Assistance-helper does LESS THAN HALF the effort. [place] lifts, holds or supports trunk or limbs, but provides less than half the effort. 2-Substantial/Maximal Assistance-helper does MORE THAN HALF the effort. [place] lifts or holds trunk or limbs and provides more than half the effort. 4-Awblapwvd-icetsb does ALL the effort. Patient does none of the effort to complete the activity. Or, the assistance of 2 or more helpers is required for the patient to complete the activity. If activity was not attempted, code reason: 7-Patient Refused. 9-Not Applicable-not attempted and the patient did not perform the activity before the current illness, exacerbation or injury. 10-Not Attempted due to Environmental Limitations-(lack of equipment, weather restraints, etc.). 88-Not Attempted due to Medical Conditions or Safety Concerns. ADL PLOF Comments Pt reports being independent with self care and mobility. States he assists with housework. 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 Denies pain at this time. Mental Status/Objective Patient Orientation: Person, Place, Situation Current Glasses/Contacts: Yes Hearing Aids: No Dentures/Partials: No Hand Dominance: Right Upper Extremity ROM WFL Upper Extremity Coordination Intact Upper Extremity Sensation intact per pt report Upper Extremity Strength grossly WFL ADL-Treatment Eating (QC): 6 (Pt reports feeding self without assist.) Oral Hygiene (QC): 5 (set up while seated at sink) Shower/Bathe Self (QC): 3 (Pt completed sponge bath while seated EOB. Upper body bathing completed with set up. Pt able to wash bilateral upper legs and smita area. Min assist for right lower leg. Stood with min assist for balance while washing buttocks. Pt washed hair at sink with set up.) Upper Body Dressing (QC): 5 (Pt doffed/donned pullover shirt with set up.) Lower Body Dressing (QC): 3 (Min assist for pants. Stood with min assist for balance during pant hike using FWW.) On/Off Footwear (QC): 3 (Pt doffed/donned sock with SBA while in bed. Min assist to don right slip on shoe) Education OT Patient Education: Rehab process Teaching Recipient: Patient Teaching Methods: Discussion Response to Teaching: Verbalize Understanding OT Short Term Goals Short Term Goals Time Frame: Sep 22, 2019 Toileting hygiene: 5 Shower/bathe self: 4 Lower body dressin OT Senior Care Goals Senior Care Goals Time Frame: Oct 06, 2019 Eating (QC): 6 Oral Hygiene (QC): 6 Toileting Hygiene (QC): 6 Shower/Bathe Self (QC): 5 Upper Body Dressing (QC): 6 Lower Body Dressing (QC): 6 On/Off Footwear (QC): 6 Additional Goals: 1-Demonstrate ADL Tasks, 2-Verbalize Understanding, 3- ImproveStrength/Dhaval 1=Demonstrate adherence to instructed precautions during ADL tasks. 2=Patient will verbalize/demonstrate understanding of assistive devices/modifications for ADL. 3=Patient will improve strength/tolerance for activity to enable patient to perform ADL's. Goals established to promote increased functional independence and allow safe return home. OT Education/Plan Problem List/Assessment Assessment: Decreased Activ Tolerance, Dependent Transfers, Impaired Funct Balance, Impaired I ADL's, Impaired Self-Care Skills Pt admitted to ARU following left BKA with decreased mobility, strength, and ADL functioning. Pt to benefit from skilled OT intervention for ADL training, tra nsfers, strengthening, and safety education to increase level of independence and allow safe discharge. Discharge Recommendations Plan/Recommendations: Continue POC Treatment Plan/Plan of Care Treatment,Training & Education: Yes Patient would benefit from OT for education, treatment and training to promote independence in ADL's, mobility, safety and/or upper extremity function for ADL's. Plan of Care: ADL Retraining, Functional Mobility, UE Funct Exercise/Act Treatment Duration: Oct 06, 2019 Frequency: At least 5 of 7 days/Wk (IRF) Estimated Hrs Per Day: 1.5 hours per day Rehab Potential: Good Time/GCodes Start Time: 10:15 Stop Time: 11:15 Total Time Billed (hr/min): 60 Billed Treatment Time 1 visit, EVM(15minutes), ADLx3(45minutes) DIMA DOOLEY OT Sep 15, 2019 12:57
--- NOTE | 2019-09-15 14:09 | NUR ---
"RD ASSESSMENT PMHx: DM; HLD; s/p BKA PT INTERACTION: Pt was awake and pleasant during nutrition assessment. Pt states current appetite is very good, and has been for some time. Note avg PO intake of 100% x2meal, per chart review. Pt states following a diabetic diet at home, and has no issues with chewing/swallowing food at this time. Pt states no recent issues with n/v/c/d at this time, and that his last BM was 09/15. Note pt currently on bowel regimen of colace BID; senna BID; and miralax BID, per chart review. Pt states no recent wt changes. Note unable to determine recent wt hx, per chart review. Pt states current DM management as so-so, with his averages running between 100-170. ABNORMAL NUTRITION-RELATED LAB VALUES LOW: HIGH: glu 136 Est. kcal needs: 0558-3354 kcal | 20-25 kcal/kg Est. Pro needs: 84-106 g Pro | 0.8-1.0 g Pro/kg PES STATEMENT: Given pt's PO intake, no nutrition diagnosis at this time (NO-1.1) INTERVENTION: Continue with current diet order of CHO 75g/m 1snack diet. Will continue to follow and reassess as pt needs and status change. MONITOR/EVALUATE: PO Intake; Plan of Care; Hydration Status; Weight Status; Lab Values Areli Vuong, MS, RD, LD"
--- NOTE | 2019-09-15 14:35 | Occupational Ther Daily Note ---
OT Current Status-Daily Note Subjective Pt in bed, agrees to treatment. ADL-Treatment Therapy Code Descriptions/Definitions Functional [place] Measure: 0=Not Assessed/NA 4=Minimal Assistance 1=Total Assistance 5=Supervision or Setup 2=Maximal Assistance 6=Modified [place] 3=Moderate Assistance 7=Complete IndependenceSCALE: Activities may be completed with or without assistive devices. 1-Comfezboku-hodxqoq completes the activity by him/herself with no assistance from a helper. 5-Set-up or Clean-up Assistance-helper sets up or cleans up; patient completes activity. [place] assists only prior to or following the activity. 4-Supervision or Touching Assistance-helper provides verbal cues and/or touching/steadying and/or contact guard assistance as patient completes activity. Assistance may be provided throughout the activity or intermittently. 3-Partial/Moderate Assistance-helper does LESS THAN HALF the effort. [place] lifts, holds or supports trunk or limbs, but provides less than half the effort. 2-Substantial/Maximal Assistance-helper does MORE THAN HALF the effort. [place] lifts or holds trunk or limbs and provides more than half the effort. 7-Prvvjjcfb-dzlxqt does ALL the effort. Patient does none of the effort to complete the activity. Or, the assistance of 2 or more helpers is required for the patient to complete the activity. If activity was not attempted, code reason: 7-Patient Refused. 9-Not Applicable-not attempted and the patient did not perform the activity bef ore the current illness, exacerbation or injury. 10-Not Attempted due to Environmental Limitations-(lack of equipment, weather r estraints, etc.). 88-Not Attempted due to Medical Conditions or Safety Concerns. Other Treatment Pt supine to sit with SBA. Sit to stand and transfer to w/c with min assist using FWW. Pt propelled w/c to therapy gym with occasional assist to steer during turns. Arm bike [id number] to increase overall strength and activity tolerance needed for functional task completion. Pt completed activity with moderate resistance and steady pace. No rest breaks needed. Pt performed bilateral UE exercises to increase strength for ADLs and transfers. Pt performed shoulder flexion, abduction, biceps curls, and triceps extension exercises x15 reps with 3# weights. Rest breaks between exercises. Pt returned to room, transferred to bed with min assist. Pt resting in bed with needs met after session. OT Short Term Goals Short Term Goals Time Frame: Sep 22, 2019 Toileting hygiene: 5 Shower/bathe self: 4 Lower body dressin OT [place] Buyer Goals [place] Buyer Goals Time Frame: Oct 06, 2019 Eating (QC): 6 Oral Hygiene (QC): 6 Toileting Hygiene (QC): 6 Shower/Bathe Self (QC): 5 Upper Body Dressing (QC): 6 Lower Body Dressing (QC): 6 On/Off Footwear (QC): 6 Additional Goals: 1-Demonstrate ADL Tasks, 2-Verbalize Understanding, 3- ImproveStrength/Dhaval 1=Demonstrate adherence to instructed precautions during ADL tasks. 2=Patient will verbalize/demonstrate understanding of assistive devices/modifications for ADL. 3=Patient will improve strength/tolerance for activity to enable patient to perform ADL's. OT Education/Plan Discharge Recommendations Plan/Recommendations: Continue POC Treatment Plan/Plan of Care Patient would benefit from OT for education, treatment and training to promote independence in ADL's, mobility, safety and/or upper extremity function for ADL's. Plan of Care: ADL Retraining, Functional Mobility, UE Funct Exercise/Act Treatment Duration: Oct 06, 2019 Frequency: At least 5 of 7 days/Wk (IRF) Estimated Hrs Per Day: 1.5 hours per day Rehab Potential: Good Time/GCodes Start Time: 13:00 Stop Time: 13:30 Total Time Billed (hr/min): 30 Billed Treatment Time 1 visit, EXx2(30minutes) DMIA DOOLEY OT Sep 15, 2019 14:35
--- NOTE | 2019-09-15 15:06 | Physical Therapy Daily Note ---
PT Daily Note-Current Subjective Patient in bed pre tx, agrees to PT, has no complaints of pain at rest. Appearance Patient BTB post tx with nurse call, phone, tray, all needs met. Patient had to use the urinal before laying down, he was able to stand and pull his pants down and use it but needed assist pulling his pants back up. Mental Status Patient Orientation: Normal For Age Transfers SCALE: Activities may be completed with or without assistive devices. 0-Vidfzobijy-rxbrfvn completes the activity by him/herself with no assistance from a helper. 5-Set-up or Clean-up Assistance-helper sets up or cleans up; patient completes activity. [place] assists only prior to or following the activity. 4-Supervision or Touching Assistance-helper provides verbal cues and/or touching/steadying and/or contact guard assistance as patient completes activity. Assistance may be provided throughout the activity or intermittently. 3-Partial/Moderate Assistance-helper does LESS THAN HALF the effort. [place] lifts, holds or supports trunk or limbs, but provides less than half the effort. 2-Substantial/Maximal Assistance-helper does MORE THAN HALF the effort. [place] lifts or holds trunk or limbs and provides more than half the effort. 9-Qvykazqip-pemnqf does ALL the effort. Patient does none of the effort to complete the activity. Or, the assistance of 2 or more helpers is required for the patient to complete the activity. If activity was not attempted, code reason: 7-Patient Refused. 9-Not Applicable-not attempted and the patient did not perform the activity before the current illness, exacerbation or injury. 10-Not Attempted due to Environmental Limitations-(lack of equipment, weather restraints, etc.). 88-Not Attempted due to Medical Conditions or Safety Concerns. Roll Left & Right (QC): 6 Sit to Lying (QC): 6 Lying to Sitting/Side of Bed(Q: 6 Sit to Stand (QC): 4 Chair/Qny-mg-Cstsi Xfer(QC): 4 Weight Bearing Left Lower Extremity: Left Non Weight Bearing Wheelchair Training Does the Pt Use a Wheelchair?: Yes Wheel 50 ft with 2 turns (QC): 5 Type of Wheelchair: Manual 120'x2 Exercises Seated Therapy Exercises: Ankle pumps (RLE), Hip abd/add (with RTB and ball) Seated Reps: [address] Ex=Flex, Abd, Ext (LLE) Standing Reps: 15 NuStep Minutes: 5 NuStep Workload: 4 (Right knee arhritis started bothering patient so NuStep was stopped) Treatments bed mobility and transfers, WC mobility, LE strengthening Assessment Current Status: Fair Progress improving general mobility PT Short Term Goals Short Term Goals Time Frame: Sep 21, 2019 Roll Left & Right: 6 Sit to lyin Lying to sitting on side of be: 6 Sit to stand: 4 Chair/qbt-xc-aojrq transfer: 4 Walk 10 feet: 4 Walk 50 feet with two turns: 4 PT Detention Goals Detention Goals PT Detention Goals Time Frame: Oct 05, 2019 Roll Left & Right (QC): 6 Sit to Lying (QC): 6 Lying-Sitting on Side/Bed(QC): 6 Sit to Stand (QC): 6 Chair/Kpl-lt-Ahlyj Xfer(QC): 6 Toilet Transfer (QC): 6 Car Transfer (QC): 6 Walk 10 feet (QC): 5 Walk 50ft with 2 Turns (QC): 4 Walking 10ft on Uneven Surface: 4 1 Step (curb) (QC): 4 4 Steps (QC): 4 Wheel 50 feet with 2 turns (QC: 6 Type: Manual Wheel 150 feet: 6 Type: Manual PT Plan Problem List Problem List: Activity Tolerance, Functional Strength, Safety, Balance, Gait, Transfer, Bed Mobility, ROM Treatment/Plan Treatment Plan: Continue Plan of Care Treatment Plan: Bed Mobility, Education, Functional Activity Dhaval, Functional Strength, Group Therapy, Gait, Safety, Therapeutic Exercise, Transfers Treatment Duration: Oct 05, 2019 Frequency: At least 5 of 7 days/Wk (IRF) Estimated Hrs Per Day: 1.5 hours per day Patient and/or Family Agrees t: Yes Safety Risks/Education Patient Education: Transfer Techniques, Correct Positioning, W/C Management, Safety Issues Teaching Recipient: Patient Teaching Methods: Demonstration, Discussion Response to Teaching: Reinforcement Needed Time/GCodes Time In: 1430 Time Out: 1500 Total Billed Treatment Time: 30 Total Billed Treatment 1 visit FA 15' EX 15' [address] PT Sep 15, 2019 15:06
[2019-09-15] MEDS ORDERED: ASPI325T32 PO (15:18)
--- NOTE | 2019-09-15 15:19 | NUR ---
ENTERED MED REC USING THE DISCHARGE ORDERS FROM . THE FOLLOWING MEDICATIONS WERE NEW TO THE PT: GABAPENTIN 100M CAPS TID MELOXICAM 7.5M TAB DAILY MIRALAX: 1 PACKET DAILY PRN SENNA S: 1 BID THE FOLLOWING ARE CHANGES: LEVEMIR VIAL: PREVIOUSLY HAS BEEN TAKING 36 UNITS DAILY BEFORE HOSPITAL STAY NEW ORDER IS NOW 45 UNITS ASPIRIN: PREVIOUSLY WAS TAKING 325MG 1 DAILY NEW ORDER IS FOR 81MG CHEW 1 DAILY THE FOLLOWING MEDS HAVE NOT BEEN CHANGED: TYLENOL 500M TABS Q 6 H PRN P ATORVASTATIN 20M DAILY CLOPIDOGREL 75M DAILY GLIMEPIRIDE 2M BID METOPROLOL ER 25M DAILY JANUVIA 100M DAILY
--- NOTE | 2019-09-15 15:54 | NUR ---
CM/SS ADMISSION Patient was admitted to ARU 09/14/19 from post op for Left BKA. Additional challenges include labile DM control, HTN, and CAD. Prior to hospitalization patient resided at home with his spouse Kristie Bobby, 59 years. They have 4 children. Patient was IADL, he has had struggles with left toe wounds that would not heal; he was under care of physicians at as well as W[facility] at [facility]. He indicated his big toe actually healed but then a new area developed and it was confirmed he had osteomyelitis. He was transferred back to and decision was made for amputation. DME: Patient has FWW, BSC/toilet framework, shower bath bench, and he has a wheelchair loaner option he will explore. Patient care plan includes a prosthesis, will explore agencies on patient behalf. He has indicated he does not want to connect with area agencies due to travel distance. PCP: Yassine [place] INSURED: Medicare, [employer] [facility] Supplement PHARMACY: [facility] ADVANCED DIRECTIVE: Yes, current and in place. CONTACTS: Kristie Bobby, spouse [phone] Thomas Bobby, son [phone] Christopher Bobby, son [phone] Suyapa, daughter [place], [place] Ashley, daughter [facility] Patient understands the purpose of the weekly team conference and that physician has estimated his LOS to be 7 days. Discussed that his overall length of stay will depend on his progress and post hospital care planning.
--- NOTE | 2019-09-15 16:39 | Consultation-Cardiology ---
HPI-Cardiology Cardiology Consultation: Date of Consultation 09/15/19 Time Seen by a Provider: 15:30 Date of Admission Attending Physician Lala Ellington DO Admitting Physician Oliver Reaves DO Consulting Physician JAX العراقي MD, MA, FACP, FAC, [facility], CCDS HPI: Chief Complaint: Reason for consultation: S/P L BKA, PVD HPI Mr. Bobby is an 79 year old male who has been admitted to [facility] from [facility]. He reports he developed osteomyelitis to his left foot following a non-healing wound. He was seen at [facility] in late August 2019 with swelling, redness, pain of the left foot. He was transferred to [facility]. He underwent L BKA on 09-08-2019 at [facility]. He reports he is feeling well. No c/o CP, palpitations, dyspnea. Review of Systems-Cardiology Review of Systems Constitutional: No chills, No fever, No malaise Eyes: No vision change Ears/Nose/Throat: No recent hearing loss Respiratory: As described under HPI Cardiovascular: As described under HPI Gastrointestinal: No diarrhea, No nausea, No vomiting Genitourinary: No dysuria Musculoskeletal: other (s/p L BKA) Skin: No rash on exposed areas, No ulcerations on exposed areas Psychiatric/Neurological: No anxiety, No depression, No seizure, No focal weakness, No syncope Hematologic: No bleeding abnormalities VAP-Ykosva-Tdbltc Hx Patient Social History Marrital Status: 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 Family Medical History Family Medical History: Does not report fam history of early CAD or SCD Allergies and Home Medications Allergies Coded Allergies: iodine (Verified Allergy, Unknown, 09/28/17) Home Medications Acetaminophen 500 Mg Tablet, 1,000 MG PO Q6H PRN for PAIN-MILD, (Reported) TAKES 2 (500 MG) TABLETS Aspirin 325 Mg Tablet.dr, 325 MG PO DAILY, (Reported) Atorvastatin Calcium 20 Mg Tablet, 20 MG PO DAILY, (Reported) Clopidogrel Bisulfate 75 Mg Tablet, 75 MG PO DAILY, (Reported) Glimepiride 2 Mg Tablet, 2 MG PO BID, (Reported) Insulin Detemir 100 Unit/1 Ml Insuln.pen, 36 UNITS SQ DAILY, (Reported) Metoprolol Succinate 25 Mg Tab.er.24h, 25 MG PO DAILY, (Reported) Sitagliptin Phosphate 100 Mg Tablet, 100 MG PO DAILY, (Reported) Patient Home Medication List Home Medication List Reviewed: Yes Physical Exam-Cardiology Physical Exam Vital Signs/I&O 09/15/19 09/15/19 05:16 09:00 Temp 36.4 Pulse 74 Resp 20 B/P (MAP) 159/70 (99) Pulse Ox 96 O2 Delivery NIV CPAP Room Air Capillary Refill : Less Than 3 Seconds Constitutional: AAO x 3, well-developed, well-nourished HEENT: PERRL, hearing is well preserved, oral hygience is good Neck: No carotid bruit; carotid pulses are 2 + bilaterally Respiratory: No accessory muscle use, No respiratory distress; chest expansion is symmetric, chest is bilaterally symmetric, lungs clear to auscultation Cardiovascular: regular rate-rhythm; No JVD; S1 and S2 Gastrointestinal: No tender; soft, round, audible bowel sounds Extremities: other (L BKA - dressing in place and not removed) Neurologic/Psychiatric: grossly intact (moves extremities) Skin: No rash on exposed areas, No ulcerations on exposed areas Data Review Labs Laboratory Tests 09/14/19 17:58: Glucometer 239H 09/14/19 20:05: Glucometer 304H 09/14/19 22:04: Glucometer 242H 09/15/19 05:40: White Blood Count 4.0L, Red Blood Count 4.51, Hemoglobin 12.2L, Hematocrit 37L, Mean Corpuscular Volume 82, Mean Corpuscular Hemoglobin 27, Mean Corpuscular Hemoglobin Concent 33, Red Cell Distribution Width 14.9H, Platelet Count 331, Mean Platelet Volume 10.4, Neutrophils (%) (Auto) 38L, Lymphocytes (%) (Auto) 49H, Monocytes (%) (Auto) 12, Eosinophils (%) (Auto) 1, Basophils (%) (Auto) 0, Neutrophils # (Auto) 1.5L, Lymphocytes # (Auto) 2.0, Monocytes # (Auto) 0.5, Eosinophils # (Auto) 0.0, Basophils # (Auto) 0.0, Sodium Level 137, Potassium Level 4.3, Chloride Level 103, Carbon Dioxide Level 25, Anion Gap 9, Blood Urea Nitrogen 15, Creatinine 0.80, Estimat Glomerular Filtration Rate > 60, BUN/Creatinine Ratio 19, Glucose Level 136H, Calcium Level 9.0, Corrected Calcium 9.6, Total Bilirubin 0.5, Aspartate Amino Transf (AST/SGOT) 21, Alanine Aminotransferase (ALT/SGPT) 28, Alkaline Phosphatase 48, Total Protein 6.7, Albumin 3.2 09/15/19 05:48: Glucometer 140H 09/15/19 10:53: Glucometer 224H 09/15/19 15:42: Glucometer 167H Laboratory Tests 09/15/19 05:40 A/P-Cardiology Assessment/Admission Diagnosis 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 Souza at [facility] d/t osteomyelitis CAD. Acute inferolateral STEMI on 09/28/17, treated with primary PCI. Card cath on 09/28/17: The right coronary artery had 80% proximal stenosis to which suc cessful stenting was carried out with an NealyWearine Xience 4.0 x 28 mm stent. The left anterior descending artery had diffuse disease, including subtotal occlusions in its distal portion, which were not amenable to intervention on account of a very small vessel caliber. The left circumflex artery had diffuse moderate to moderately severe disease and was of small caliber. LVEF 60%. Significantly elevated left ventricular end-diastolic pressure Echo on 09/29/17: difficult study, LVEF approx 60% DM II Chronic daily tobacco use, quit in December 2018 Hyperlipidemia Obesity with BMI approx 33 PAD: s/p multiple bilateral interventions at [facility] in the half 2018 S/p L great toe amputation at [facility] in February 2019. This was followed by multiple PAD interventions (details unavailable); currently post L BKA on 09-08-2019 Discussion and Recomendations Available records from [facility] reviewed Continue current regimen including ASA and Plavix d/t CAD/PVD Continue Lovenox for DVT prophylaxis Monitor lab from time to time We would like to thank Medical services for this consult Further recs will be based on his hospital course Clinical Quality Measures DVT/VTE Risk/Contraindication: Risk Factor Score Per Nursin RFS Level Per Nursing on Admit: 4+=Very High JAX العراقي MD FACP FAC CCDS Sep 15, 2019 16:39
[2019-09-15] MEDS: ENOXAPARIN 40 MG/0.4 ML (LOVENOX) SYR SC SCH (17:32)
[2019-09-15 18:24] VITALS: BP 142/70
[2019-09-16 05:53] VITALS: BP 148/76
[2019-09-16] MEDS: inSUlin ASPART (NovoLOG) 1 UNIT/0.01 ML (CHARGE PER UNIT) SC SCH ×4 (06:13→20:47)
[2019-09-16] MEDS: GLIMEPIRIDE 2 MG (AMARYL) TAB PO SCH ×2 (06:22→17:10)
[2019-09-16] MEDS: LINAGLIPTIN (TRADJENTA) 5 MG TABLET PO SCH (06:22)
[2019-09-16] MEDS: MELOXICAM 7.5 MG (MOBIC) TABLET PO SCH (07:53)
[2019-09-16] MEDS: DOCUSATE SODIUM 100 MG (COLACE) CAP PO SCH ×2 (07:54→21:05)
[2019-09-16] MEDS: CLOPIDOGREL 75 MG (PLAVIX) TABLET PO SCH (07:54)
[2019-09-16] MEDS: ASPIRIN 81 MG CHEW (CHILDREN'S ASA) PO SCH (07:55)
[2019-09-16] MEDS: GABAPENTIN 100 MG (NEURONTIN) CAP PO SCH ×3 (07:55→20:47)
--- NOTE | 2019-09-16 09:46 | Progress Note - Cardiology ---
Cardiology SOAP Progress Note Subjective: No cp or palp or syncope or shortness of breath Gen weakness and malaise for which he is undergoing rehab Objective: I&O/Vital Signs 09/16/19 05:53 Temp 36.2 Pulse 69 Resp 20 B/P (MAP) 148/76 (100) Pulse Ox 97 O2 Delivery NIV CPAP 09/16/19 00:00 Intake Total 750 ml Output Total 1251 ml Balance -501 ml Weight (Pounds): 245 Weight (Ounces): 0.0 Weight (Calculated Kilograms): 111.652225 Constitutional: AAO x 3, well-developed, well-nourished Respiratory: No accessory muscle use, No respiratory distress; chest expansion is symmetric, chest is bilaterally symmetric, lungs clear to auscultation Cardiovascular: regular rate-rhythm; No JVD; S1 and S2 Gastrointestional: No tender; soft, round, audible bowel sounds Extremities: other (L BKA - dressing in place and not removed) Neurologic/Psychiatric: grossly intact (moves extremities) Skin: No rash on exposed areas, No ulcerations on exposed areas Results/Procedures: Labs Laboratory Tests 09/15/19 10:53: Glucometer 224H 09/15/19 15:42: Glucometer 167H 09/15/19 20:52: Glucometer 276H 09/16/19 05:28: Glucometer 134H Laboratory Tests 09/15/19 05:40 A/P: Assessment: 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 Souza at [facility] d/t osteomyelitis CAD. Acute inferolateral STEMI on 09/28/17, treated with primary PCI. Card cath on 09/28/17: The right coronary artery had 80% proximal stenosis to which successful stenting was carried out with an Alpine Xience 4.0 x 28 mm stent. The left anterior descending artery had diffuse disease, including subtotal occlusions in its distal portion, which were not amenable to intervention on account of a very small vessel caliber. The left circumflex artery had diffuse moderate to moderately severe disease and was of small caliber. LVEF 60%. Significantly elevated left ventricular end-diastolic pressure Echo on 09/29/17: difficult study, LVEF approx 60% DM II Chronic daily tobacco use, quit in December 2018 Hyperlipidemia Obesity with BMI approx 33 PAD: s/p multiple bilateral interventions at [facility] in the half 2018 S/p L great toe amputation at [facility] in February 2019. This was followed by multiple PAD interventions (details unavailable); currently post L BKA on 09-08-2019 Plan: * Cardiac status clinically stable * Continue current card regimen * Monitor labs intermittently JAX العراقي MD FACP [facility] CCDS Sep 16, 2019 09:46
[2019-09-16] MEDS: polyethylene glycoL POWDER 17 GM (MIRALAX) PACK PO SCH ×2 (09:48→20:46)
[2019-09-16] MEDS: SENNA W/DOCUSATE (SENOKOT S) TABLET PO SCH ×2 (09:48→21:05)
--- NOTE | 2019-09-16 09:52 | PM&R Progress Note ---
Subjective HPI/CC On Admission Date Seen by Provider: Sep 16, 2019 Time Seen by Provider: 09:30 Subjective/Events-last exam Pt doing extremely well His cannot help much at home since she is ill herself Leaving dressing along not changing it per recommendation from ARELIS Will have a follow up appointment with ARELIS Blood sugars reviewed. Labs reviewed. Checked meds and labs. Reviewed therapy notes. Conferred with RN. Review of Systems General: Fatigue Objective Exam Vital Signs Vital Signs Date Time Temp Pulse Resp B/P (MAP) Pulse Ox O2 Delivery O2 Flow Rate FiO2 09/16/19 17:16 36.6 73 22 151/66 (94) 95 Room Air Capillary Refill : Less Than 3 Seconds General Appearance: No Apparent Distress, WD/WN HEENT: PERRL/EOMI, Normal ENT Inspection, Pharynx Normal Neck: Full Range of Motion, Normal Inspection, Non Tender, Supple, Carotid Bruit Respiratory: Chest Non Tender, Lungs Clear, Normal Breath Sounds, No Accessory Muscle Use, No Respiratory Distress Cardiovascular: Regular Rate, Rhythm, No Edema, No Gallop, No JVD, No Murmur, Normal Peripheral Pulses Gastrointestinal: Normal Bowel Sounds, No Organomegaly, No Pulsatile Mass, Non Tender, Soft Back: Normal Inspection, No CVA Tenderness, No Vertebral Tenderness Extremity: Normal Capillary Refill, Normal Inspection, Normal Range of Motion, Non Tender, No Calf Tenderness, No Pedal Edema, Other (left BKA) Neurologic/Psychiatric: Alert, Oriented x3, No Motor/Sensory Deficits, Normal Mood/Affect, doping supervisor II-XII Norm as Tested Skin: Normal Color, Warm/Dry Lymphatic: No Adenopathy Results/Procedures Lab Patient resulted labs reviewed. FIM Transfers Therapy Code Descriptions/Definitions Functional [place] Measure: 0=Not Assessed/NA 4=Minimal Assistance 1=Total Assistance 5=Supervision or Setup 2=Maximal Assistance 6=Modified [place] 3=Moderate Assistance 7=Complete IndependenceSCALE: Activities may be completed with or without assistive devices. 2-Idqckhxhbl-zlxkdus completes the activity by him/herself with no assistance from a helper. 5-Set-up or Clean-up Assistance-helper sets up or cleans up; patient completes activity. [place] assists only prior to or following the activity. 4-Supervision or Touching Assistance-helper provides verbal cues and/or touching/steadying and/or contact guard assistance as patient completes activity. Assistance may be provided throughout the activity or intermittently. 3-Partial/Moderate Assistance-helper does LESS THAN HALF the effort. [place] lifts, holds or supports trunk or limbs, but provides less than half the effort. 2-Substantial/Maximal Assistance-helper does MORE THAN HALF the effort. [place] lifts or holds trunk or limbs and provides more than half the effort. 4-Nbcbwgzyp-biwjsj does ALL the effort. Patient does none of the effort to complete the activity. Or, the assistance of 2 or more helpers is required for the patient to complete the activity. If activity was not attempted, code reason: 7-Patient Refused. 9-Not Applicable-not attempted and the patient did not perform the activity before the current illness, exacerbation or injury. 10-Not Attempted due to Environmental Limitations-(lack of equipment, weather restraints, etc.). 88-Not Attempted due to Medical Conditions or Safety Concerns. Roll Left to Right (QC): 6 Sit to Lying (QC): 6 Sit to Stand (QC): 4 Chair/Bus-ym-Runpj Xfer(QC): 4 Car Transfer (QC): 4 Gait Training Does the Patient Walk?: Yes Walk 10 feet (QC): 4 Walk 50 ft with 2 Turns(QC): 88 Walk 150 ft (QC): 88 Walking 10ft/uneven surface-QC: 88 Gait Assistive Device: FWW Wheelchair Training Does the Pt Use a Wheelchair?: Yes Distance: 150'x2 Wheel 50 ft with 2 turns (QC): 5 Wheel 150 ft (QC): 4 Type of Wheelchair: Manual Stair Training 1 Step (curb) (QC): 88 4 Steps (QC): 88 12 Steps (QC): 88 Balance Picking up an Object (QC): 88 ADL-Treatment Eating (QC): 6 (Pt reports feeding self without assist.) Oral Hygiene (QC): 5 (set up while seated at sink) Shower/Bathe Self (QC): 3 (Pt completed sponge bath while seated EOB. Upper body bathing completed with set up. Pt able to wash bilateral upper legs and smita area. Min assist for right lower leg. Stood with min assist for balance while washing buttocks. Pt washed hair at sink with set up.) Upper Body Dressing (QC): 5 (Pt doffed/donned pullover shirt with set up.) Lower Body Dressing (QC): 3 (Min assist for pants. Stood with min assist for balance during pant hike using FWW.) On/Off Footwear (QC): 3 (Pt doffed/donned sock with SBA while in bed. Min assist to don right slip on shoe) Assessment/Plan Assessment and Plan Assess & Plan/Chief Complaint Assessment: s/p left BKA DM HTN CAD PVD PATRICK on CPAP Plan: CPAP IRF protocol BM regimen (1) Left below-knee amputee (2) Diabetes mellitus (3) Hypertension (4) CAD (coronary artery disease) (5) PVD (peripheral vascular disease) (6) PATRICK on CPAP DAMION WHITFIELD DO Sep 16, 2019 09:52
--- NOTE | 2019-09-16 09:53 | Individualized Plan of Care ---
Individualized Plan of Care Rehab Nursing IPOC Order Admission Date Sep 14, 2019 at 17:30 Current Orders Orders Admission Order(Inpt,Obs,Sdc) (09/14/19 12:40) Vital Signs: Per Unit Policy ( 08,16,00 (09/14/19 12:40) Driver'S License Examiner-Inpt Rehab Con (09/14/19 12:40) Rehab Nursing Orders-Ipoc (09/14/19 12:40) Physical Therapy Rehab Orders (09/14/19 12:40) Occupational Therapy Rehab Ord (09/14/19 12:40) Speech Therapy Rehab Orders (09/14/19 12:40) Cbc With Automated Diff (09/15/19 06:00) Comprehensive Metabolic Panel (09/15/19 06:00) General/Regular (09/14/19 Dinner) Intake & Output 06,14,22 (09/14/19 12:40) Precautions (Aru) (09/14/19 12:40) Weekly Weight WEEK (09/14/19 12:40) Rehab-Intensity Of Therapy (09/14/19 12:40) Initiate Admission Nursing Pro .admission (09/14/19 12:40) Alprazolam Tablet (Xanax Tablet) (09/14/19 12:45) Calcium Carbonate Chew Tablet (Antacid C (09/14/19 12:45) Diphenhydramine Tablet (Benadryl Tablet) (09/14/19 12:45) Docusate Sodium Capsule (Colace Capsule) (09/14/19 21:00) Docusate Sodium Capsule (Colace Capsule) (09/14/19 12:45) Bisacodyl Suppository (Dulcolax Supposit (09/14/19 12:45) Lactulose Oral Solution (Enulose Oral So (09/14/19 12:45) Na Phos/Na Biphos Enema (Fleet Enema Christian (09/14/19 12:45) Guaifenesin/Codeine Syrup (Robitussin Ac (09/14/19 12:45) Loperamide Tablet (Imodium Tablet) (09/14/19 12:45) Enoxaparin Injection (Lovenox Injection) (09/14/19 18:30) Melatonin Tablet (Melatonin Tablet) (09/14/19 12:45) Polyethylene Glycol Powder Pkt (Miralax (09/14/19 21:00) Ondansetron Oral Dissolve Tab (Zofran (09/14/19 12:45) Senna S Tablet (Senokot S Tablet) (09/14/19 21:00) Initiate Admission Nursing Pro .admission (09/14/19 12:40) Cho 75g/M 1snack (21-2400 Manjinder) (09/15/19 Breakfast) Accucheck Achs ACHS (09/14/19 18:15) Insulin Aspart (Novolog) (Novolog (Charg (09/14/19 21:00) Insulin Aspart (Novolog) (Novolog (Charg (09/14/19 18:30) Consult Cardiology (09/14/19 18:39) Acetaminophen Tablet (Tylenol Tablet) (09/14/19 18:45) Aspirin Chewable Tablet (Baby Aspirin Ch (09/15/19 09:00) Atorvastatin Tablet (Lipitor Tablet) (09/15/19 09:00) Clopidogrel Tablet (Plavix Tablet) (09/15/19 09:00) Gabapentin Capsule/Tablet (Neurontin Cap (09/14/19 21:00) Glimepiride Tablet (Amaryl Tablet) (09/14/19 18:45) Meloxicam Tablet (Mobic Tablet) (09/15/19 08:00) Metoprolol Succinate (Xl) Tab (Toprol Xl (09/15/19 09:00) Polyethylene Glycol Powder Pkt (Miralax (09/14/19 18:45) Senna S Tablet (Senokot S Tablet) (09/14/19 21:00) (Nf) Insulin Detemir (Levemir Flextouch) (09/15/19 09:00) (Nf) Sitagliptin Phosphate (Januvia) (09/15/19 09:00) Linagliptin Tablet (Tradjenta Tablet) (09/15/19 07:00) Insulin Determir (Per Unit) (Levemir (Pe (09/15/19 09:00) Ambulate 08,12,20 (09/15/19 02:01) Sequential Compression Device Q4H (09/15/19 02:01) Dvt/Vte Risk - Notifiy Physici Q4H (09/15/19 02:01) Patient Visit (09/15/19 ) Speech Sound Lang Comp (09/15/19 ) Patient Visit (09/15/19 ) Pt Eval Moderate Complexity (09/15/19 ) Functional Activities, Ea 15 (09/15/19 ) Exercise Therap, Ea 15 Min (09/15/19 ) Patient Visit (09/16/19 ) Exercise Therap, Ea 15 Min (09/16/19 ) Wheelchair Mgmt/Propulsn 15min (09/16/19 ) Functional Activities, Ea 15 (09/16/19 ) Rehab Nursing Orders: Ongoing Assess. of Cognitive Status, Ongoing Assess. of Function Status, Bladder Management, Bladder Scan, Bladder Training, Bowel Management, Bowel Training, Disease Management & Educaiton, DVT Prophylaxis, Fall Prevention, Fluid/Electrolyte/Nutrition Mgmt, Infection Prevention, Medication Management & Education, Management of Risks & Complications, Management of Skin Intergrity, Nutrition Management, Pain Management, Patient/Family Support, Safety Management Intensity of Therapy to be met Patient to be seen: Min.3h per day/5 of 7d PT IPOC Problem List: Activity Tolerance, Functional Strength, Safety, Balance, Gait, Transfer, Bed Mobility, ROM Treatment Plan: Continue Plan of Care Bed Mobility, Education, Functional Activity Dhaval, Functional Strength, Group Therapy, Gait, Safety, Therapeutic Exercise, Transfers Treatment Duration: Oct 05, 2019 Frequency: At least 5 of 7 days/Wk (IRF) Estimated Hrs Per Day: 1.5 hours per day OT IPOC Problems: Decreased Activ Tolerance, Dependent Transfers, Impaired Funct Balance, Impaired I ADL's, Impaired Self-Care Skills OT Treatment, Training and Edu: Yes Plan of Care: ADL Retraining, Functional Mobility, UE Funct Exercise/Act Treatment Duration: Oct 06, 2019 Frequency: At least 5 of 7 days/Wk (IRF) Estimated Hrs Per Day: 1.[address] IPOC Speech Therapy Treatment Plan: Discontinue ST Treatment Duration: Sep 15, 2019 Frequency: 1 time per week Estimated Hrs Per Day: .25 hour per day Driver'S License Examiner/Case Mgmt Driver'S License Examiner/Case Managemen: Discharge Planning Dietitian/Tank Builder Supervisor Dietitian/Tank Builder Supervisor to monitor nutritional status and make changes and/or recommendations as needed and work with speech pathology on dietary upgrades as the occur. Physician IPOC Medical Issues being managed closely and that require the 24 hour availability of a physician: Recent left BKA will require close monitoring of fall risks and regaining independence in order to return home with his Medical Issues: Bowel/Bladder Function, DVT Prophylaxis, Falls Precautions, Fluid/Electrolyte/Nutrition Balance, Infection Protection, Pain Management Brief Synthesis of Preadmission Screen, Post-Admission Evaluation, and Therapy Evaluations: PT and OT will focus on regaining independence in order to return home to be as independent as possible due to spouse unable to assist physically Medical Prognosis: Good Anticipated Length of Stay: 10 days DAMION WHITFIELD DO Sep 16, 2019 09:53
--- NOTE | 2019-09-16 10:00 | Physical Therapy Daily Note ---
PT Daily Note-Current Subjective Pt. agrees to Rx. States he feels he is adjusting psychologically and emotionally very well to this loss and declines amputee support team. Pt. states he has no pain at this time. Pain Location: No Pain Reported Mental Status Patient Orientation: Normal For Age Attachments: Other-See Comments (splint left residual limb) Transfers SCALE: Activities may be completed with or without assistive devices. 3-Lzlsshbbli-prdelpn completes the activity by him/herself with no assistance from a helper. 5-Set-up or Clean-up Assistance-helper sets up or cleans up; patient completes activity. [place] assists only prior to or following the activity. 4-Supervision or Touching Assistance-helper provides verbal cues and/or touching/steadying and/or contact guard assistance as patient completes activity. Assistance may be provided throughout the activity or intermittently. 3-Partial/Moderate Assistance-helper does LESS THAN HALF the effort. [place] lifts, holds or supports trunk or limbs, but provides less than half the effort. 2-Substantial/Maximal Assistance-helper does MORE THAN HALF the effort. [place] lifts or holds trunk or limbs and provides more than half the effort. 6-Ytaahtlwh-swjgih does ALL the effort. Patient does none of the effort to complete the activity. Or, the assistance of 2 or more helpers is required for the patient to complete the activity. If activity was not attempted, code reason: 7-Patient Refused. 9-Not Applicable-not attempted and the patient did not perform the activity before the current illness, exacerbation or injury. 10-Not Attempted due to Environmental Limitations-(lack of equipment, weather restraints, etc.). 88-Not Attempted due to Medical Conditions or Safety Concerns. Roll Left & Right (QC): 6 Sit to Lying (QC): 6 Lying to Sitting/Side of Bed(Q: 6 Sit to Stand (QC): 4 Chair/Lfn-sq-Txfya Xfer(QC): 4 emphasis on w/c to table TRF moving toward right or unaffected limb , utilizing good w/c turn skills and instructed in locking and unlocking w/c as he sits on bed/table and always TRFng toward right. Pt. needed several trials and education about protecting residual limb as well as protecting knee RLE which he says has some arthritic issues Weight Bearing Left Lower Extremity: Left Non Weight Bearing Gait Training side steps and a couple hops with FWW with min to mod assist Wheelchair Training Does the Pt Use a Wheelchair?: Yes Wheel 50 ft with 2 turns (QC): 5 Wheel 150 ft (QC): 5 Type of Wheelchair: Manual turns and approaches and positioning chair for safe TRF was a focus of RX Exercises Supine Ex: Bridging, Ankle pumps (right), Quad Set, Rolling, Glut sets (prone), Heel Slides (right), Short Arc Quads (right), Scooting, Straight leg raise, Hip abd/add Supine Reps: 20 supine and side lying LE exercises, as well as crunches all x20 NuStep Minutes: 10 NuStep Workload: 4 Treatments TRFs w/c to bed etc toward right side, much education about safety at home and consideration of ramp install Assessment Current Status: Good Progress gives full effort PT Short Term Goals Short Term Goals Time Frame: Sep 21, 2019 Roll Left & Right: 6 Sit to lyin Lying to sitting on side of be: 6 Sit to stand: 4 Chair/lzr-et-noyzu transfer: 4 Walk 10 feet: 4 Walk 50 feet with two turns: 4 PT [facility] Goals Office Messenger Helper Goals PT [facility] Goals Time Frame: Oct 05, 2019 Roll Left & Right (QC): 6 Sit to Lying (QC): 6 Lying-Sitting on Side/Bed(QC): 6 Sit to Stand (QC): 6 Chair/Onl-ta-Ractd Xfer(QC): 6 Toilet Transfer (QC): 6 Car Transfer (QC): 6 Walk 10 feet (QC): 5 Walk 50ft with 2 Turns (QC): 4 Walking 10ft on Uneven Surface: 4 1 Step (curb) (QC): 4 4 Steps (QC): 4 Wheel 50 feet with 2 turns (QC: 6 Type: Manual Wheel 150 feet: 6 Type: Manual PT Plan Treatment/Plan Treatment Plan: Continue Plan of Care Treatment Plan: Bed Mobility, Education, Functional Activity Dhaval, Functional Strength, Group Therapy, Gait, Safety, Therapeutic Exercise, Transfers Treatment Duration: Oct 05, 2019 Frequency: At least 5 of 7 days/Wk (IRF) Estimated Hrs Per Day: 1.5 hours per day Patient and/or Family Agrees t: Yes Safety Risks/Education Patient Education: Transfer Techniques, Correct Positioning, W/C Management, Disease Process, Safety Issues Teaching Recipient: Patient Teaching Methods: Demonstration, Discussion Response to Teaching: Verbalize Understanding, Return Demonstration, Reinforcement Needed Time/GCodes Time In: 900 Time Out: 1000 Total Billed Treatment Time: 60 Total Billed Treatment 1,EX30m,WC10m,FA20m MELVIN TURNER HOUSEMAID Sep 16, 2019 10:00
--- NOTE | 2019-09-16 11:19 | Occupational Ther Daily Note ---
OT Current Status-Daily Note Subjective Pt alert, sitting up in bed. Pt agrees to therapy. No c/o pain at this time. Mental Status/Objective Patient Orientation: Person, Place, Time, Situation ADL-Treatment Per report, pt able to complete oral care and shaving by self. Pt declined shower, sponge bath or changing clothing. Pt did complete tub transfer bench transfer with CGA and positioning w/c. Therapy Code Descriptions/Definitions Functional [place] Measure: 0=Not Assessed/NA 4=Minimal Assistance 1=Total Assistance 5=Supervision or Setup 2=Maximal Assistance 6=Modified [place] 3=Moderate Assistance 7=Complete IndependenceSCALE: Activities may be completed with or without assistive devices. 4-Tqnysxdxsc-byaftlp completes the activity by him/herself with no assistance from a helper. 5-Set-up or Clean-up Assistance-helper sets up or cleans up; patient completes activity. [place] assists only prior to or following the activity. 4-Supervision or Touching Assistance-helper provides verbal cues and/or touching/steadying and/or contact guard assistance as patient completes activity. Assistance may be provided throughout the activity or intermittently. 3-Partial/Moderate Assistance-helper does LESS THAN HALF the effort. [place] lifts, holds or supports trunk or limbs, but provides less than half the effort. 2-Substantial/Maximal Assistance-helper does MORE THAN HALF the effort. [place] lifts or holds trunk or limbs and provides more than half the effort. 4-Wcfsxvzun-nhmyvb does ALL the effort. Patient does none of the effort to complete the activity. Or, the assistance of 2 or more helpers is required for the patient to complete the activity. If activity was not attempted, code reason: 7-Patient Refused. 9-Not Applicable-not attempted and the patient did not perform the activity before the current illness, exacerbation or injury. 10-Not Attempted due to Environmental Limitations-(lack of equipment, weather restraints, etc.). 88-Not Attempted due to Medical Conditions or Safety Concerns. Oral Hygiene (QC): 5 On/Off Footwear: 6 (Pt able to don/doff R shoe/sock by self.) Other Treatment Pt worked on B UE strengthening by working on w/c mobility over different surfaces, maneuvering and up/down ramp (2x's). Pt demonstrated understanding of propelling w/c though with corners and backing needed verbal cues not to run into neri. Pt was able to complete ramp 2x's first going up forward then up backward with only verbal cue to watch behind. Pt then propelled w/c to therapy gym. Arm bike completed for 15 min at 25 ornelas resistance to increase strength and activity tolerance for daily functional tasks. Pt then completed medium resistance theraband UE exercises, 4 exercises 30 reps each. Heavy resistance therapy sponge given with 3 exercises to strengthen pinch and cover cutter, pt to use in room. After therapy, pt lying in bed with call light/phone in reach. All needs met in room. OT Short Term Goals Short Term Goals Time Frame: Sep 22, 2019 Toileting hygiene: 5 Shower/bathe self: 4 Lower body dressin OT Hat Steamer Goals [facility] Goals Time Frame: Oct 06, 2019 Eating (QC): 6 Oral Hygiene (QC): 6 Toileting Hygiene (QC): 6 Shower/Bathe Self (QC): 5 Upper Body Dressing (QC): 6 Lower Body Dressing (QC): 6 On/Off Footwear (QC): 6 Additional Goals: 1-Demonstrate ADL Tasks, 2-Verbalize Understanding, 3-ImproveStrength/Dhaval 1=Demonstrate adherence to instructed precautions during ADL tasks. 2=Patient will verbalize/demonstrate understanding of assistive devices/modifications for ADL. 3=Patient will improve strength/tolerance for activity to enable patient to per form ADL's. OT Education/Plan Problem List/Assessment Assessment: Decreased Activ Tolerance, Decreased UE Strength, Impaired Self- Care Skills Discharge Recommendations Plan/Recommendations: Continue POC Treatment Plan/Plan of Care Patient would benefit from OT for education, treatment and training to promote independence in ADL's, mobility, safety and/or upper extremity function for ADL's. Plan of Care: ADL Retraining, Functional Mobility, UE Funct Exercise/Act Treatment Duration: Oct 06, 2019 Frequency: At least 5 of 7 days/Wk (IRF) Estimated Hrs Per Day: 1.5 hours per day Rehab Potential: Good Time/GCodes Start Time: 10:00 Stop Time: 11:30 Total Time Billed (hr/min): 90 Billed Treatment Time 1 visit-FA 4 (60 min) EX 2 (30 min) JUANJOSE PORRAS Sep 16, 2019 11:19
--- NOTE | 2019-09-16 14:03 | Physical Therapy Daily Note ---
PT Daily Note-Current Subjective Pt. agrees to Rx. States he is surprised he does not have pain. Pain Location: No Pain Reported Mental Status Patient Orientation: Normal For Age Transfers SCALE: Activities may be completed with or without assistive devices. 0-Mfuolxsoiu-iiuwpzc completes the activity by him/herself with no assistance from a helper. 5-Set-up or Clean-up Assistance-helper sets up or cleans up; patient completes activity. [place] assists only prior to or following the activity. 4-Supervision or Touching Assistance-helper provides verbal cues and/or touching/steadying and/or contact guard assistance as patient completes activity. Assistance may be provided throughout the activity or intermittently. 3-Partial/Moderate Assistance-helper does LESS THAN HALF the effort. [place] lifts, holds or supports trunk or limbs, but provides less than half the effort. 2-Substantial/Maximal Assistance-helper does MORE THAN HALF the effort. [place] lifts or holds trunk or limbs and provides more than half the effort. 2-Nlgegmwht-ysqobz does ALL the effort. Patient does none of the effort to complete the activity. Or, the assistance of 2 or more helpers is required for the patient to complete the activity. If activity was not attempted, code reason: 7-Patient Refused. 9-Not Applicable-not attempted and the patient did not perform the activity before the current illness, exacerbation or injury. 10-Not Attempted due to Environmental Limitations-(lack of equipment, weather restraints, etc.). 88-Not Attempted due to Medical Conditions or Safety Concerns. TRF training bed to w/c and w/c to bed several trials moving toward to right each trial with better ease as safety this PM Weight Bearing Left Lower Extremity: Left Non Weight Bearing Wheelchair Training Type of Wheelchair: Manual fig 8s, backing, tight area manuevering, and ZTR turns left and right with good control Exercises Supine Ex: Rolling, Glut sets, Heel Slides, Straight leg raise, Hip abd/add Supine Reps: 15 Assessment Current Status: Good Progress PT Short Term Goals Short Term Goals Time Frame: Sep 21, 2019 Roll Left & Right: 6 Sit to lyin Lying to sitting on side of be: 6 Sit to stand: 4 Chair/awe-lh-dwveu transfer: 4 Walk 10 feet: 4 Walk 50 feet with two turns: 4 PT Automobile Service Advisor Goals Automobile Service Advisor Goals PT Intermediate Goals Time Frame: Oct 05, 2019 Roll Left & Right (QC): 6 Sit to Lying (QC): 6 Lying-Sitting on Side/Bed(QC): 6 Sit to Stand (QC): 6 Chair/Nep-sb-Vkmkn Xfer(QC): 6 Toilet Transfer (QC): 6 Car Transfer (QC): 6 Walk 10 feet (QC): 5 Walk 50ft with 2 Turns (QC): 4 Walking 10ft on Uneven Surface: 4 1 Step (curb) (QC): 4 4 Steps (QC): 4 Wheel 50 feet with 2 turns (QC: 6 Type: Manual Wheel 150 feet: 6 Type: Manual PT Plan Treatment/Plan Treatment Plan: Continue Plan of Care Treatment Plan: Bed Mobility, Education, Functional Activity Dhaval, Functional Strength, Group Therapy, Gait, Safety, Therapeutic Exercise, Transfers Treatment Duration: Oct 05, 2019 Frequency: At least 5 of 7 days/Wk (IRF) Estimated Hrs Per Day: 1.5 hours per day Patient and/or Family Agrees t: Yes Safety Risks/Education Patient Education: Transfer Techniques, Correct Positioning, W/C Management, Safety Issues Teaching Recipient: Patient Teaching Methods: Demonstration, Discussion Response to Teaching: Verbalize Understanding, Return Demonstration Time/GCodes Time In: 1330 Time Out: 1400 Total Billed Treatment Time: 30 Total Billed Treatment 1,EX10,FA20m MELVIN TURNER MEDICAL ADMINISTRATIVE SPECIALIST Sep 16, 2019 14:03
--- NOTE | 2019-09-16 14:48 | NUR ---
provided prayer and Communion.
[2019-09-16] MEDS: ENOXAPARIN 40 MG/0.4 ML (LOVENOX) SYR SC SCH (17:10)
[2019-09-16 17:16] VITALS: BP 151/66
[2019-09-17 05:27] VITALS: BP 144/71
[2019-09-17] MEDS: inSUlin ASPART (NovoLOG) 1 UNIT/0.01 ML (CHARGE PER UNIT) SC SCH ×4 (05:40→21:06)
[2019-09-17] MEDS: LINAGLIPTIN (TRADJENTA) 5 MG TABLET PO SCH (06:10)
[2019-09-17] MEDS: GLIMEPIRIDE 2 MG (AMARYL) TAB PO SCH ×2 (06:10→16:24)
[2019-09-17 08:00] VITALS: BP 131/57
--- NOTE | 2019-09-17 08:55 | Physical Therapy Daily Note ---
PT Daily Note-Current Subjective Patient in bed pre tx, agrees to PT, has no complaints of pain. Patient needs dressed upper and lower, needs min assist with pants. Appearance Patient in bed post tx with nurse call, phone, tray, all needs met. Mental Status Patient Orientation: Normal For Age Transfers SCALE: Activities may be completed with or without assistive devices. 9-Anmezjzunh-xaoulxd completes the activity by him/herself with no assistance from a helper. 5-Set-up or Clean-up Assistance-helper sets up or cleans up; patient completes activity. [place] assists only prior to or following the activity. 4-Supervision or Touching Assistance-helper provides verbal cues and/or touching/steadying and/or contact guard assistance as patient completes activity. Assistance may be provided throughout the activity or intermittently. 3-Partial/Moderate Assistance-helper does LESS THAN HALF the effort. [place] lifts, holds or supports trunk or limbs, but provides less than half the effort. 2-Substantial/Maximal Assistance-helper does MORE THAN HALF the effort. [place] lifts or holds trunk or limbs and provides more than half the effort. 0-Krvwndury-awgwae does ALL the effort. Patient does none of the effort to complete the activity. Or, the assistance of 2 or more helpers is required for the patient to complete the activity. If activity was not attempted, code reason: 7-Patient Refused. 9-Not Applicable-not attempted and the patient did not perform the activity before the current illness, exacerbation or injury. 10-Not Attempted due to Environmental Limitations-(lack of equipment, weather restraints, etc.). 88-Not Attempted due to Medical Conditions or Safety Concerns. Roll Left & Right (QC): 6 Sit to Lying (QC): 6 Lying to Sitting/Side of Bed(Q: 6 Sit to Stand (QC): 4 Chair/Xon-ms-Bblmg Xfer(QC): 4 SBA for transfers, patient has difficulty with standing from low surfaces but can do it without assist. Weight Bearing Left Lower Extremity: Left Non Weight Bearing Gait Training Distance: 20'x3 Walk 10 feet (QC): 4 Gait Persons Needed: 1 Gait Assistive Device: FWW SBA, WC follow, poor foot clearance on the right side Wheelchair Training Does the Pt Use a Wheelchair?: Yes Wheel 50 ft with 2 turns (QC): 6 Wheel 150 ft (QC): 6 Type of Wheelchair: Manual Exercises Supine Ex: Quad Set, Glut sets, Straight leg raise (LLE), Hip abd/add (LLE) Supine Reps: [address] Ex=Flex, Abd, Ext Standing Reps: 20 (LLE) supine bridge with legs on theraball x20 Treatments bed mobility and transfers, ambulation, LE strengthening Assessment Current Status: Fair Progress improving transfers PT Short Term Goals Short Term Goals Time Frame: Sep 21, 2019 Roll Left & Right: 6 Sit to lyin Lying to sitting on side of be: 6 Sit to stand: 4 Chair/meb-fh-zipri transfer: 4 Walk 10 feet: 4 Walk 50 feet with two turns: 4 PT Intermediate Goals Intermediate Goals PT Intermediate Goals Time Frame: Oct 05, 2019 Roll Left & Right (QC): 6 Sit to Lying (QC): 6 Lying-Sitting on Side/Bed(QC): 6 Sit to Stand (QC): 6 Chair/Ens-mv-Bghep Xfer(QC): 6 Toilet Transfer (QC): 6 Car Transfer (QC): 6 Walk 10 feet (QC): 5 Walk 50ft with 2 Turns (QC): 4 Walking 10ft on Uneven Surface: 4 1 Step (curb) (QC): 4 4 Steps (QC): 4 Wheel 50 feet with 2 turns (QC: 6 Type: Manual Wheel 150 feet: 6 Type: Manual PT Plan Problem List Problem List: Activity Tolerance, Functional Strength, Safety, Balance, Gait, Transfer, ROM Treatment/Plan Treatment Plan: Continue Plan of Care Treatment Plan: Bed Mobility, Education, Functional Activity Dhaval, Functional Strength, Group Therapy, Gait, Safety, Therapeutic Exercise, Transfers Treatment Duration: Oct 05, 2019 Frequency: At least 5 of 7 days/Wk (IRF) Estimated Hrs Per Day: 1.5 hours per day Patient and/or Family Agrees t: Yes Safety Risks/Education Patient Education: Gait Training, Transfer Techniques, Correct Positioning, Safety Issues Teaching Recipient: Patient Teaching Methods: Demonstration, Discussion Response to Teaching: Reinforcement Needed Time/GCodes Time In: 0800 Time Out: 0900 Total Billed Treatment Time: 60 Total Billed Treatment 1 visit GT 20' FA 10' EX 30' [address] PT Sep 17, 2019 08:55
--- NOTE | 2019-09-17 09:09 | PM&R Progress Note ---
Subjective HPI/CC On Admission Date Seen by Provider: Sep 17, 2019 Time Seen by Provider: 09:15 Subjective/Events-last exam Had a BM this morning. No pain issues. Still a little bit off-kilter, major fall risk still so we have a lot of work to do but he is doing very well. Blood sugars reviewed. Labs reviewed. Checked meds and labs. Reviewed therapy notes. Conferred with RN. Review of Systems Musculoskeletal: leg pain Objective Exam Vital Signs Vital Signs Date Time Temp Pulse Resp B/P (MAP) Pulse Ox O2 Delivery O2 Flow Rate FiO2 09/17/19 17:17 36.3 69 20 165/70 (101) 98 Room Air Capillary Refill : Less Than 3 Seconds General Appearance: No Apparent Distress, WD/WN HEENT: PERRL/EOMI, Normal ENT Inspection, Pharynx Normal Neck: Full Range of Motion, Normal Inspection, Non Tender, Supple, Carotid Bruit Respiratory: Chest Non Tender, Lungs Clear, Normal Breath Sounds, No Accessory Muscle Use, No Respiratory Distress Cardiovascular: Regular Rate, Rhythm, No Edema, No Gallop, No JVD, No Murmur, Normal Peripheral Pulses Gastrointestinal: Normal Bowel Sounds, No Organomegaly, No Pulsatile Mass, Non Tender, Soft Back: Normal Inspection, No CVA Tenderness, No Vertebral Tenderness Extremity: Normal Capillary Refill, Normal Inspection, Normal Range of Motion, Non Tender, No Calf Tenderness, No Pedal Edema, Other (left BKA) Neurologic/Psychiatric: Alert, Oriented x3, No Motor/Sensory Deficits, Normal Mood/Affect, wool carder II-XII Norm as Tested Skin: Normal Color, Warm/Dry Lymphatic: No Adenopathy Results/Procedures Lab Patient resulted labs reviewed. FIM Transfers Therapy Code Descriptions/Definitions Functional [place] Measure: 0=Not Assessed/NA 4=Minimal Assistance 1=Total Assistance 5=Supervision or Setup 2=Maximal Assistance 6=Modified [place] 3=Moderate Assistance 7=Complete IndependenceSCALE: Activities may be completed with or without assistive devices. 1-Axwooehbdx-aspmajt completes the activity by him/herself with no assistance from a helper. 5-Set-up or Clean-up Assistance-helper sets up or cleans up; patient completes activity. [place] assists only prior to or following the activity. 4-Supervision or Touching Assistance-helper provides verbal cues and/or touching/steadying and/or contact guard assistance as patient completes activity. Assistance may be provided throughout the activity or intermittently. 3-Partial/Moderate Assistance-helper does LESS THAN HALF the effort. [place] lifts, holds or supports trunk or limbs, but provides less than half the effort. 2-Substantial/Maximal Assistance-helper does MORE THAN HALF the effort. [place] lifts or holds trunk or limbs and provides more than half the effort. 1-Sctzacvcn-hwnuve does ALL the effort. Patient does none of the effort to complete the activity. Or, the assistance of 2 or more helpers is required for the patient to complete the activity. If activity was not attempted, code reason: 7-Patient Refused. 9-Not Applicable-not attempted and the patient did not perform the activity before the current illness, exacerbation or injury. 10-Not Attempted due to Environmental Limitations-(lack of equipment, weather restraints, etc.). 88-Not Attempted due to Medical Conditions or Safety Concerns. Roll Left to Right (QC): 6 Sit to Lying (QC): 6 Sit to Stand (QC): 4 Chair/Pbn-ku-Aqwdj Xfer(QC): 4 Car Transfer (QC): 4 Gait Training Does the Patient Walk?: Yes Distance: 20'x3 Walk 10 feet (QC): 4 Walk 50 ft with 2 Turns(QC): 88 Walk 150 ft (QC): 88 Walking 10ft/uneven surface-QC: 88 Gait Persons Needed: 1 Gait Assistive Device: FWW Wheelchair Training Does the Pt Use a Wheelchair?: Yes Distance: 150'x2 Wheel 50 ft with 2 turns (QC): 6 Wheel 150 ft (QC): 6 Type of Wheelchair: Manual Stair Training 1 Step (curb) (QC): 88 4 Steps (QC): 88 12 Steps (QC): 88 Balance Picking up an Object (QC): 88 ADL-Treatment Eating (QC): 6 (Pt reports feeding self without assist.) Oral Hygiene (QC): 5 Shower/Bathe Self (QC): 3 (Pt completed sponge bath while seated EOB. Upper body bathing completed with set up. Pt able to wash bilateral upper legs and smita area. Min assist for right lower leg. Stood with min assist for balance while washing buttocks. Pt washed hair at sink with set up.) Upper Body Dressing (QC): 5 (Pt doffed/donned pullover shirt with set up.) Lower Body Dressing (QC): 3 (Min assist for pants. Stood with min assist for balance during pant hike using FWW.) On/Off Footwear (QC): 6 (Pt able to don/doff R shoe/sock by self.) Assessment/Plan Assessment and Plan Assess & Plan/Chief Complaint Assessment: s/p left BKA DM HTN CAD PVD PATRICK on CPAP Plan: CPAP IRF protocol BM regimen (1) Left below-knee amputee (2) Diabetes mellitus (3) Hypertension (4) CAD (coronary artery disease) (5) PVD (peripheral vascular disease) (6) PATRICK on CPAP DAMION WHITFIELD DO Sep 17, 2019 09:09
[2019-09-17] MEDS: ASPIRIN 81 MG CHEW (CHILDREN'S ASA) PO SCH (09:25)
[2019-09-17] MEDS: GABAPENTIN 100 MG (NEURONTIN) CAP PO SCH ×3 (09:25→21:05)
[2019-09-17] MEDS: CLOPIDOGREL 75 MG (PLAVIX) TABLET PO SCH (09:25)
[2019-09-17] MEDS: SENNA W/DOCUSATE (SENOKOT S) TABLET PO SCH ×2 (09:27→21:09)
[2019-09-17] MEDS: polyethylene glycoL POWDER 17 GM (MIRALAX) PACK PO SCH ×2 (09:27→21:08)
[2019-09-17] MEDS: DOCUSATE SODIUM 100 MG (COLACE) CAP PO SCH ×2 (09:27→21:08)
[2019-09-17] MEDS: MELOXICAM 7.5 MG (MOBIC) TABLET PO SCH (09:29)
--- NOTE | 2019-09-17 10:35 | Occupational Ther Daily Note ---
OT Current Status-Daily Note Subjective Pt alert, lying in bed. Pt agrees to therapy. No c/o pain. Mental Status/Objective Patient Orientation: Person, Place, Time, Situation ADL-Treatment Encouraged pt to take shower. Pt anxious about getting brace wet on his L stump. TRISTAN covered area to keep dry. SBA for SPT from EOB <--> w/c. Pt maneuvered w/c into bathroom. Min A for shower transfers due to low surface of bench. Pt completed shower sitting on bench, did not stand to cleanse buttocks, leaned side to side. Pt used grabbars to stand with CGA for stability while drying buttocks. Pt stated that he is more comfortable to dress in bed. Assist to thread pants off lower legs, pt stood with CGA to hike pants over hips. Pt able to thread R foot into pants leg then assist to thread L stump into pant leg. Pt stated that he had already completed oral care and toileting earlier in AM. After therapy, pt lying in bed with call light/phone in reach. All needs met in room. Therapy Code Descriptions/Definitions Functional [place] Measure: 0=Not Assessed/NA 4=Minimal Assistance 1=Total Assistance 5=Supervision or Setup 2=Maximal Assistance 6=Modified [place] 3=Moderate Assistance 7=Complete IndependenceSCALE: Activities may be completed with or without assistive devices. 1-Vvexlkuipo-mbwhbem completes the activity by him/herself with no assistance from a helper. 5-Set-up or Clean-up Assistance-helper sets up or cleans up; patient completes activity. [place] assists only prior to or following the activity. 4-Supervision or Touching Assistance-helper provides verbal cues and/or touching/steadying and/or contact guard assistance as patient completes activity. Assistance may be provided throughout the activity or intermittently. 3-Partial/Moderate Assistance-helper does LESS THAN HALF the effort. [place] lifts, holds or supports trunk or limbs, but provides less than half the effort. 2-Substantial/Maximal Assistance-helper does MORE THAN HALF the effort. [place] lifts or holds trunk or limbs and provides more than half the effort. 5-Zhmowbupc-cvjxxb does ALL the effort. Patient does none of the effort to complete the activity. Or, the assistance of 2 or more helpers is required for the patient to complete the activity. If activity was not attempted, code reason: 7-Patient Refused. 9-Not Applicable-not attempted and the patient did not perform the activity before the current illness, exacerbation or injury. 10-Not Attempted due to Environmental Limitations-(lack of equipment, weather restraints, etc.). 88-Not Attempted due to Medical Conditions or Safety Concerns. Shower/Bathe Self (QC): 4 Upper Body Dressing (QC): 5 Lower Body Dressing (QC): 3 On/Off Footwear: 3 OT Short Term Goals Short Term Goals Time Frame: Sep 22, 2019 Toileting hygiene: 5 Shower/bathe self: 4 Lower body dressin OT Group Home Goals Group Home Goals Time Frame: Oct 06, 2019 Eating (QC): 6 Oral Hygiene (QC): 6 Toileting Hygiene (QC): 6 Shower/Bathe Self (QC): 5 Upper Body Dressing (QC): 6 Lower Body Dressing (QC): 6 On/Off Footwear (QC): 6 Additional Goals: 1-Demonstrate ADL Tasks, 2-Verbalize Understanding, 3- ImproveStrength/Dhaval 1=Demonstrate adherence to instructed precautions during ADL tasks. 2=Patient will verbalize/demonstrate understanding of assistive devices/modifications for ADL. 3=Patient will improve strength/tolerance for activity to enable patient to perform ADL's. OT Education/Plan Problem List/Assessment Assessment: Decreased Activ Tolerance, Impaired Self-Care Skills Discharge Recommendations Plan/Recommendations: Continue POC Treatment Plan/Plan of Care Patient would benefit from OT for education, treatment and training to promote independence in ADL's, mobility, safety and/or upper extremity function for ADL's. Plan of Care: ADL Retraining, Functional Mobility, UE Funct Exercise/Act Treatment Duration: Oct 06, 2019 Frequency: At least 5 of 7 days/Wk (IRF) Estimated Hrs Per Day: 1.5 hours per day Rehab Potential: Good Time/GCodes Start Time: 09:15 Stop Time: 10:15 Total Time Billed (hr/min): 60 Billed Treatment Time 1 visit-ADL 4 (60 min) JUANJOSE PORRAS Sep 17, 2019 10:35
--- NOTE | 2019-09-17 11:00 | NUR ---
DENIES PAIN. LIKES TO STAY SITTING UP IN BED "BECAUSE IT'S EASIER TO USE MY COMPUTER" COMPARED TO SITTING IN CHAIR.
--- NOTE | 2019-09-17 11:10 | NUR ---
Anointed by Fr Florence.
--- NOTE | 2019-09-17 14:11 | Therapy Group Daily Note ---
Therapy Daily Group Note Patient Education Topic Other List Below (handwashing, AD for walkers) Exercises LE Seated Exercise, UE Exercise Session Ratio (pt:therapist): 3:1 Goal of Session: UE/LE Strengthing, Use of Adaptive Equipment, Other (list) (handwashing) Goal Met for this Session: Yes Pt Benefit of Group: Contributions to Others, F/U Use of Strategies @Home, Increased Functional Safety, Increased Functional Strength, Improved Cognition, Recognition of Peers, Socialization Other/Notes Pt propelled w/c to [facility] for OT/PT group. Group consisted of introductions (name, place living, favorite childhood food), socialization, peer lead UE/LE seated exercises, educational topics of handwashing and AD for walkers. Pt introduced self appropriately and actively listened to peers. Pt was able to read exercise card and lead group in one exercise then completed other exercises that was lead by peers. Pt acknowledged understanding of educational topics by giving own strategies and personal stories on each topic. After group, pt wanted to propel w/c around [facility] for more exercise. Call light was placed in accessible reach for when pt went back to room. All needs met. Start Time: 13:00 Stop Time: 14:00 Total Billed Treatment Time: 60 Total Billed Treatment 1-JUANJOSE DAVIS Sep 17, 2019 14:11
--- NOTE | 2019-09-17 15:04 | NUR ---
CM/SS WEEKLY TEAM CONFERENCE SUMMARY Reviewed Summary with patient. He is doing well and is in agreement for continued stay with review next team meeting. Team members shared concern that patient's was somewhat compromised and perhaps unable to provide for patient. Patient said she has cancer but that specifically is not limiting her at this time, that she has always been a person who tires easily. He went on to say he has a daughter in close proximity and that he anticipated her to assist more if needed, He truly did not anticipate issues with his care at home. Team will continue to pursue maximum independence.
[2019-09-17 17:17] VITALS: BP 165/70
[2019-09-17] MEDS: ENOXAPARIN 40 MG/0.4 ML (LOVENOX) SYR SC SCH (17:55)
--- NOTE | 2019-09-17 19:09 | NUR ---
bedside report received from JAS RAZA, assume care of pt
--- NOTE | 2019-09-17 21:06 | NUR ---
pt refused Pamela, nan & Hany, fsbs 207, NovoLog 6 units given
[2019-09-18 05:06] VITALS: BP 144/70
--- NOTE | 2019-09-18 05:56 | PM&R Progress Note ---
Subjective HPI/CC On Admission Date Seen by Provider: Sep 18, 2019 Time Seen by Provider: 06:00 Subjective/Events-last exam Pt doing pretty well Uses his CPAP every night No pain is reported Blood sugars vary from 149-200 Pt doesn't really check his sugar often at home Participating in therapy very well Blood sugars reviewed. Labs reviewed. Checked meds and labs. Reviewed therapy notes. Conferred with RN. Review of Systems General: Fatigue Neurological: Incoordination Objective Exam Vital Signs Vital Signs Date Time Temp Pulse Resp B/P (MAP) Pulse Ox O2 Delivery O2 Flow Rate FiO2 09/18/19 09:00 96 Room Air 09/18/19 05:06 36.3 69 20 144/70 (94) Capillary Refill : Less Than 3 Seconds General Appearance: No Apparent Distress, WD/WN HEENT: PERRL/EOMI, Normal ENT Inspection, Pharynx Normal Neck: Full Range of Motion, Normal Inspection, Non Tender, Supple, Carotid Bruit Respiratory: Chest Non Tender, Lungs Clear, Normal Breath Sounds, No Accessory Muscle Use, No Respiratory Distress Cardiovascular: Regular Rate, Rhythm, No Edema, No Gallop, No JVD, No Murmur, Normal Peripheral Pulses Gastrointestinal: Normal Bowel Sounds, No Organomegaly, No Pulsatile Mass, Non Tender, Soft Back: Normal Inspection, No CVA Tenderness, No Vertebral Tenderness Extremity: Normal Capillary Refill, Normal Inspection, Normal Range of Motion, Non Tender, No Calf Tenderness, No Pedal Edema, Other (left BKA) Neurologic/Psychiatric: Alert, Oriented x3, No Motor/Sensory Deficits, Normal Mood/Affect, teacher's assistant II-XII Norm as Tested Skin: Normal Color, Warm/Dry Lymphatic: No Adenopathy Results/Procedures Lab Patient resulted labs reviewed. FIM Transfers Therapy Code Descriptions/Definitions Functional [place] Measure: 0=Not Assessed/NA 4=Minimal Assistance 1=Total Assistance 5=Supervision or Setup 2=Maximal Assistance 6=Modified [place] 3=Moderate Assistance 7=Complete IndependenceSCALE: Activities may be completed with or without assistive devices. 7-Axnmezmerj-gfyzlve completes the activity by him/herself with no assistance from a helper. 5-Set-up or Clean-up Assistance-helper sets up or cleans up; patient completes activity. [place] assists only prior to or following the activity. 4-Supervision or Touching Assistance-helper provides verbal cues and/or touching/steadying and/or contact guard assistance as patient completes activity. Assistance may be provided throughout the activity or intermittently. 3-Partial/Moderate Assistance-helper does LESS THAN HALF the effort. [place] lifts, holds or supports trunk or limbs, but provides less than half the effort. 2-Substantial/Maximal Assistance-helper does MORE THAN HALF the effort. [place] lifts or holds trunk or limbs and provides more than half the effort. 5-Bmehpofaj-qhypsn does ALL the effort. Patient does none of the effort to complete the activity. Or, the assistance of 2 or more helpers is required for the patient to complete the activity. If activity was not attempted, code reason: 7-Patient Refused. 9-Not Applicable-not attempted and the patient did not perform the activity before the current illness, exacerbation or injury. 10-Not Attempted due to Environmental Limitations-(lack of equipment, weather restraints, etc.). 88-Not Attempted due to Medical Conditions or Safety Concerns. Roll Left to Right (QC): 6 Sit to Lying (QC): 6 Sit to Stand (QC): 4 Chair/Vti-ya-Bvubn Xfer(QC): 4 Car Transfer (QC): 4 Gait Training Does the Patient Walk?: Yes Distance: 20'x3 Walk 10 feet (QC): 4 Walk 50 ft with 2 Turns(QC): 88 Walk 150 ft (QC): 88 Walking 10ft/uneven surface-QC: 88 Gait Persons Needed: 1 Gait Assistive Device: FWW Wheelchair Training Does the Pt Use a Wheelchair?: Yes Distance: 150'x2 Wheel 50 ft with 2 turns (QC): 6 Wheel 150 ft (QC): 6 Type of Wheelchair: Manual Stair Training 1 Step (curb) (QC): 88 4 Steps (QC): 88 12 Steps (QC): 88 Balance Picking up an Object (QC): 88 ADL-Treatment Eating (QC): 6 (Pt reports feeding self without assist.) Oral Hygiene (QC): 5 Shower/Bathe Self (QC): 4 Upper Body Dressing (QC): 5 Lower Body Dressing (QC): 3 On/Off Footwear (QC): 3 Assessment/Plan Assessment and Plan Assess & Plan/Chief Complaint Assessment: s/p left BKA DM HTN CAD PVD PATRICK on CPAP Plan: CPAP IRF protocol BM regimen CPAP (1) Left below-knee amputee (2) Diabetes mellitus (3) Hypertension (4) CAD (coronary artery disease) (5) PVD (peripheral vascular disease) (6) PATRICK on CPAP DAMION WHITFIELD DO Sep 18, 2019 05:56
[2019-09-18] MEDS: inSUlin ASPART (NovoLOG) 1 UNIT/0.01 ML (CHARGE PER UNIT) SC SCH ×4 (06:36→20:52)
[2019-09-18] MEDS: GLIMEPIRIDE 2 MG (AMARYL) TAB PO SCH ×2 (06:37→16:15)
[2019-09-18] MEDS: LINAGLIPTIN (TRADJENTA) 5 MG TABLET PO SCH (06:37)
[2019-09-18] MEDS: GABAPENTIN 100 MG (NEURONTIN) CAP PO SCH ×3 (07:54→20:52)
[2019-09-18] MEDS: CLOPIDOGREL 75 MG (PLAVIX) TABLET PO SCH (07:55)
[2019-09-18] MEDS: ASPIRIN 81 MG CHEW (CHILDREN'S ASA) PO SCH (07:55)
[2019-09-18] MEDS: MELOXICAM 7.5 MG (MOBIC) TABLET PO SCH (07:55)
[2019-09-18] MEDS: polyethylene glycoL POWDER 17 GM (MIRALAX) PACK PO SCH ×2 (08:27→20:52)
[2019-09-18] MEDS: DOCUSATE SODIUM 100 MG (COLACE) CAP PO SCH ×2 (08:27→20:51)
[2019-09-18] MEDS: SENNA W/DOCUSATE (SENOKOT S) TABLET PO SCH ×2 (08:28→20:52)
--- NOTE | 2019-09-18 08:29 | Occupational Ther Daily Note ---
OT Current Status-Daily Note Subjective Pt alert, lying in bed. Pt agrees to therapy. No c/o pain. Mental Status/Objective Patient Orientation: Person, Place, Time, Situation ADL-Treatment Pt declines shower today. Pt agrees to sponge bath and changing clothing. Pt completed sponge bath in bed. Pt required assistance to thread feet out of/into pant legs. CGA in stance to hike pants over hips. Pt propelled w/c to toilet and transferred onto/off of toilet using w/c and grabbars with min A due to low surface. CGA to hike pants over hips. Pt sat on toilet to complete hygiene. Pt introduced to AE for lower body dressing. Pt stated that he has telephone lineman and tub transfer bench at home. Pt demonstrated understanding of donning socks with sock aide and donning shoes after set up. Therapy Code Descriptions/Definitions Functional [place] Measure: 0=Not Assessed/NA 4=Minimal Assistance 1=Total Assistance 5=Supervision or Setup 2=Maximal Assistance 6=Modified [place] 3=Moderate Assistance 7=Complete IndependenceSCALE: Activities may be completed with or without assistive devices. 9-Ecpoonicum-hbikttw completes the activity by him/herself with no assistance from a helper. 5-Set-up or Clean-up Assistance-helper sets up or cleans up; patient completes activity. [place] assists only prior to or following the activity. 4-Supervision or Touching Assistance-helper provides verbal cues and/or touching/steadying and/or contact guard assistance as patient completes activity. Assistance may be provided throughout the activity or intermittently. 3-Partial/Moderate Assistance-helper does LESS THAN HALF the effort. [place] lifts, holds or supports trunk or limbs, but provides less than half the effort. 2-Substantial/Maximal Assistance-helper does MORE THAN HALF the effort. [place] lifts or holds trunk or limbs and provides more than half the effort. 5-Jomcqgtar-siizzp does ALL the effort. Patient does none of the effort to complete the activity. Or, the assistance of 2 or more helpers is required for the patient to complete the activity. If activity was not attempted, code reason: 7-Patient Refused. 9-Not Applicable-not attempted and the patient did not perform the activity before the current illness, exacerbation or injury. 10-Not Attempted due to Environmental Limitations-(lack of equipment, weather restraints, etc.). 88-Not Attempted due to Medical Conditions or Safety Concerns. Oral Hygiene (QC): 6 Shower/Bathe Self (QC): 5 Upper Body Dressing (QC): 5 Lower Body Dressing (QC): 4 On/Off Footwear: 5 Toileting Hygiene (QC): 4 Toilet Transfer (QC): 3 Other Treatment Pt demonstrated understanding of hand weight exercises, completing 2 sets 10 reps of each. Pt propelled w/c into room and transferred from w/c to EOB with SBA. Mod I for bed mobility. After therapy, pt lying in recliner with call light/phone in reach. All needs met in room. OT Short Term Goals Short Term Goals Time Frame: Sep 22, 2019 Toileting hygiene: 5 Shower/bathe self: 4 Lower body dressin OT Chcf Goals Chcf Goals Time Frame: Oct 06, 2019 Eating (QC): 6 Oral Hygiene (QC): 6 Toileting Hygiene (QC): 6 Shower/Bathe Self (QC): 5 Upper Body Dressing (QC): 6 Lower Body Dressing (QC): 6 On/Off Footwear (QC): 6 Additional Goals: 1-Demonstrate ADL Tasks, 2-Verbalize Understanding, 3- ImproveStrength/Dhaval 1=Demonstrate adherence to instructed precautions during ADL tasks. 2=Patient will verbalize/demonstrate understanding of assistive devices/modifications for ADL. 3=Patient will improve strength/tolerance for activity to enable patient to perform ADL's. OT Education/Plan Problem List/Assessment Assessment: Decreased UE Strength, Impaired Self-Care Skills Discharge Recommendations Plan/Recommendations: Continue POC Treatment Plan/Plan of Care Patient would benefit from OT for education, treatment and training to promote independence in ADL's, mobility, safety and/or upper extremity function for ADL's. Plan of Care: ADL Retraining, Functional Mobility, UE Funct Exercise/Act Treatment Duration: Oct 06, 2019 Frequency: At least 5 of 7 days/Wk (IRF) Estimated Hrs Per Day: 1.5 hours per day Rehab Potential: Good Time/GCodes Start Time: 07:00 Stop Time: 08:30 Total Time Billed (hr/min): 90 Billed Treatment Time 1 visit-ADL 5 (75 min) EX 1 (15 min) JUANJOSE PORRAS Sep 18, 2019 08:29
--- NOTE | 2019-09-18 10:03 | Physical Therapy Daily Note ---
PT Daily Note-Current Subjective Pt agreeable to PT session. States he used to wear knee brace on RLE and will request from family to bring it in for him to help with his walking. Pt very hesitant about gait training due to R knee is so bad. Pain Numeric Pain Scale: 0-No Pain Appearance Pt in bed awake and alert upon arrival. At end of session, pt requesting and assisted back to bed, call light, phone and bedside table within reach. Mental Status Patient Orientation: Person, Place, Time, Eyes Open, Situation LLE plastic leg cast to prevent contracture Transfers SCALE: Activities may be completed with or without assistive devices. 8-Qrwlzzpaje-fuzaeth completes the activity by him/herself with no assistance from a helper. 5-Set-up or Clean-up Assistance-helper sets up or cleans up; patient completes activity. [place] assists only prior to or following the activity. 4-Supervision or Touching Assistance-helper provides verbal cues and/or touching/steadying and/or contact guard assistance as patient completes activity. Assistance may be provided throughout the activity or intermittently. 3-Partial/Moderate Assistance-helper does LESS THAN HALF the effort. [place] lifts, holds or supports trunk or limbs, but provides less than half the effort. 2-Substantial/Maximal Assistance-helper does MORE THAN HALF the effort. [place] lifts or holds trunk or limbs and provides more than half the effort. 4-Uqrbwoyic-tqconz does ALL the effort. Patient does none of the effort to complete the activity. Or, the assistance of 2 or more helpers is required for the patient to complete the activity. If activity was not attempted, code reason: 7-Patient Refused. 9-Not Applicable-not attempted and the patient did not perform the activity before the current illness, exacerbation or injury. 10-Not Attempted due to Environmental Limitations-(lack of equipment, weather restraints, etc.). 88-Not Attempted due to Medical Conditions or Safety Concerns. Roll Left & Right (QC): 6 Sit to Lying (QC): 6 Lying to Sitting/Side of Bed(Q: 6 Sit to Stand (QC): 4 Chair/Cnr-fg-Zhwkc Xfer(QC): 4 pt demonstrating Weight Bearing Left Lower Extremity: Left Non Weight Bearing Gait Training Distance: 20 Walk 10 feet (QC): 4 Gait Persons Needed: 1 Gait Assistive Device: FWW hopping, slow pace, unable to come down softly onto R foot, NWB LLE due to amputation, no LOB, increasing pain R knee with each hop Wheelchair Training Does the Pt Use a Wheelchair?: Yes Wheel 50 ft with 2 turns (QC): 6 Wheel 150 ft (QC): 6 Type of Wheelchair: Manual use of BUE's and RLE Exercises Supine Ex: Bridging (30 ball under LE's), Ankle pumps (30 RLE), Quad Set (30), Glut sets (30), Lower trunk rotation (30 ball under LE's), Heel Slides (30 RLE), Knee to chest (30 RLE), Scooting (up in bed), Straight leg raise (30), Hip abd/add (30) Supine Reps: 30 (inst slow and controlled movements, LLE BKA with plastic cast preventing knee flex) NuStep Minutes: 10 NuStep Workload: 6 (RLE and BUE's, stump of LLE supported on padded surface) Treatments education, safety, bed mobility, transfers, w/c mobility, strength, gait, balance, activity tolerance, functional mobility Assessment Current Status: Fair Progress slow progress with gait due to R knee pain and pt stating "that knee is shot, was supposed to have a knee replacement and then this infection and amputation in the other leg happened". Pt awaiting family to bring in brace for RLE. PT Short Term Goals Short Term Goals Time Frame: Sep 21, 2019 Roll Left & Right: 6 Sit to lyin Lying to sitting on side of be: 6 Sit to stand: 4 Chair/nta-jj-xzhho transfer: 4 Walk 10 feet: 4 Walk 50 feet with two turns: 4 PT Chcf Goals Tanker Serviceman Goals PT Chcf Goals Time Frame: Oct 05, 2019 Roll Left & Right (QC): 6 Sit to Lying (QC): 6 Lying-Sitting on Side/Bed(QC): 6 Sit to Stand (QC): 6 Chair/Maa-bm-Scunc Xfer(QC): 6 Toilet Transfer (QC): 6 Car Transfer (QC): 6 Walk 10 feet (QC): 5 Walk 50ft with 2 Turns (QC): 4 Walking 10ft on Uneven Surface: 4 1 Step (curb) (QC): 4 4 Steps (QC): 4 Wheel 50 feet with 2 turns (QC: 6 Type: Manual Wheel 150 feet: 6 Type: Manual PT Plan Treatment/Plan Treatment Plan: Continue Plan of Care Treatment Plan: Bed Mobility, Education, Functional Activity Dhaval, Functional Strength, Group Therapy, Gait, Safety, Therapeutic Exercise, Transfers Treatment Duration: Oct 05, 2019 Frequency: At least 5 of 7 days/Wk (IRF) Estimated Hrs Per Day: 1.5 hours per day Patient and/or Family Agrees t: Yes Safety Risks/Education Patient Education: Gait Training, Transfer Techniques, Reviewed Precautions, W/C Management, Safety Issues Teaching Recipient: Patient Teaching Methods: Demonstration, Discussion Response to Teaching: Verbalize Understanding, Return Demonstration Time/GCodes Time In: 1000 Time Out: 1100 Total Billed Treatment Time: 60 Total Billed Treatment 1 visit, FA x10 min, GT x10 min, WC x20 min, EX x20 min 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
--- NOTE | 2019-09-18 13:40 | Physical Therapy Daily Note ---
PT Daily Note-Current Subjective Patient agrees to PT. Mental Status Patient Orientation: Normal For Age Transfers SCALE: Activities may be completed with or without assistive devices. 4-Imodgvmuwi-qidzhlx completes the activity by him/herself with no assistance from a helper. 5-Set-up or Clean-up Assistance-helper sets up or cleans up; patient completes activity. [place] assists only prior to or following the activity. 4-Supervision or Touching Assistance-helper provides verbal cues and/or touching/steadying and/or contact guard assistance as patient completes activity. Assistance may be provided throughout the activity or intermittently. 3-Partial/Moderate Assistance-helper does LESS THAN HALF the effort. [place] lifts, holds or supports trunk or limbs, but provides less than half the effort. 2-Substantial/Maximal Assistance-helper does MORE THAN HALF the effort. [place] lifts or holds trunk or limbs and provides more than half the effort. 6-Owucdsjtv-redfmw does ALL the effort. Patient does none of the effort to complete the activity. Or, the assistance of 2 or more helpers is required for the patient to complete the activity. If activity was not attempted, code reason: 7-Patient Refused. 9-Not Applicable-not attempted and the patient did not perform the activity befo re the current illness, exacerbation or injury. 10-Not Attempted due to Environmental Limitations-(lack of equipment, weather re straints, etc.). 88-Not Attempted due to Medical Conditions or Safety Concerns. Roll Left & Right (QC): 6 Sit to Lying (QC): 6 Lying to Sitting/Side of Bed(Q: 6 Sit to Stand (QC): 4 Chair/Pqh-wu-Eikis Xfer(QC): 4 Weight Bearing Left Lower Extremity: Left Non Weight Bearing Gait Training Does the Patient Walk?: No and Walking Goal IS indicated Distance: 30' Walk 10 feet (QC): 3 Gait Assistive Device: FWW Patient c/o right knee discomfort due to impact with hopping. Ceased gait training Wheelchair Training Does the Pt Use a Wheelchair?: Yes Wheel 50 ft with 2 turns (QC): 6 Wheel 150 ft (QC): 6 Type of Wheelchair: Manual Exercises Standing: Sit to Stand Standing Reps: 20 (with recovery periods after each 5) Assessment Patient tolerated treatment well and returned to bed with needs met. Patient performed sit to stand to single parallel bar SBA. PT Short Term Goals Short Term Goals Time Frame: Sep 21, 2019 Roll Left & Right: 6 Sit to lyin Lying to sitting on side of be: 6 Sit to stand: 4 Chair/nut-me-npbms transfer: 4 Walk 10 feet: 4 Walk 50 feet with two turns: 4 PT Supervisor Prop Making Goals Supervisor Prop Making Goals PT Shelter Goals Time Frame: Oct 05, 2019 Roll Left & Right (QC): 6 Sit to Lying (QC): 6 Lying-Sitting on Side/Bed(QC): 6 Sit to Stand (QC): 6 Chair/Vci-jb-Tuomd Xfer(QC): 6 Toilet Transfer (QC): 6 Car Transfer (QC): 6 Walk 10 feet (QC): 5 Walk 50ft with 2 Turns (QC): 4 Walking 10ft on Uneven Surface: 4 1 Step (curb) (QC): 4 4 Steps (QC): 4 Wheel 50 feet with 2 turns (QC: 6 Type: Manual Wheel 150 feet: 6 Type: Manual PT Plan Treatment/Plan Treatment Plan: Continue Plan of Care Treatment Plan: Bed Mobility, Education, Functional Activity Dhaval, Functional Strength, Group Therapy, Gait, Safety, Therapeutic Exercise, Transfers Treatment Duration: Oct 05, 2019 Frequency: At least 5 of 7 days/Wk (IRF) Estimated Hrs Per Day: 1.5 hours per day Patient and/or Family Agrees t: Yes Time/GCodes Time In: 1308 Time Out: 1338 Total Billed Treatment Time: 30 Total Billed Treatment 1 visit EX 16 min FA 14 min BOO MARTÍNEZ PT Sep 18, 2019 13:40
--- NOTE | 2019-09-18 16:36 | Progress Note - Cardiology ---
Cardiology SOAP Progress Note Subjective: No cp or palp or syncope or shortness of breath at rest Gen malaise and weakness No n/v/d Objective: I&O/Vital Signs 09/18/19 09/18/19 05:06 09:00 Temp 36.3 Pulse 69 Resp 20 B/P (MAP) 144/70 (94) Pulse Ox 96 96 O2 Delivery Room Air Room Air 09/18/19 00:00 Intake Total 1780 ml Output Total 1200 ml Balance 580 ml Weight (Pounds): 245 Weight (Ounces): 0.0 Weight (Calculated Kilograms): 111.948899 Constitutional: AAO x 3, well-developed, well-nourished Respiratory: No accessory muscle use, No respiratory distress; chest expansion is symmetric, chest is bilaterally symmetric, lungs clear to auscultation Cardiovascular: regular rate-rhythm; No JVD; S1 and S2 Gastrointestional: No tender; soft, round, audible bowel sounds Extremities: other (L BKA - dressing in place and not removed) Neurologic/Psychiatric: grossly intact (moves extremities) Skin: No rash on exposed areas, No ulcerations on exposed areas Results/Procedures: Labs Laboratory Tests 09/17/19 20:35: Glucometer 207H 09/18/19 06:34: Glucometer 183H 09/18/19 11:34: Glucometer 220H 09/18/19 16:14: Glucometer 196H A/P: Assessment: 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 Souza at [facility] d/t osteomyelitis CAD. Acute inferolateral STEMI on 09/28/17, treated with primary PCI. Card cath on 09/28/17: The right coronary artery had 80% proximal stenosis to which successful stenting was carried out with an Alpine Xience 4.0 x 28 mm stent. The left anterior descending artery had diffuse disease, including subtotal occlusions in its distal portion, which were not amenable to intervention on account of a very small vessel caliber. The left circumflex artery had diffuse moderate to moderately severe disease and was of small caliber. LVEF 60%. Significantly elevated left ventricular end-diastolic pressure Echo on 09/29/17: difficult study, LVEF approx 60% DM II Chronic daily tobacco use, quit in December 2018 Hyperlipidemia Obesity with BMI approx 33 PAD: s/p multiple bilateral interventions at [facility] in the half 2018 S/p L great toe amputation at [facility] in February 2019. This was followed by multiple PAD interventions (details unavailable); currently post L BKA on 09-08-2019 Plan: * His cardiac status is clinically stable * Monitor labs from time to time * Dr Gomez covering over the weekend. Please call if needed JAX العراقي MD FACP [facility] CCDS Sep 18, 2019 16:36
[2019-09-18 18:00] VITALS: BP 142/69
[2019-09-18] MEDS: ENOXAPARIN 40 MG/0.4 ML (LOVENOX) SYR SC SCH (18:31)
--- NOTE | 2019-09-18 22:15 | NUR ---
PLEASANT AND COOPERATIVE. COMPLAIN INDIGESTION AND MEDICATED WITH TUMS. READY TO SLEEP AND CPAP ON.
--- NOTE | 2019-09-19 01:14 | NUR ---
bedside report received from JAS RAZA, assume care of pt
[2019-09-19 05:15] VITALS: BP 133/67
--- NOTE | 2019-09-19 06:01 | PM&R Progress Note ---
Subjective HPI/CC On Admission Date Seen by Provider: Sep 19, 2019 Time Seen by Provider: 06:00 Subjective/Events-last exam Pt doing pretty well Uses his CPAP every night No pain is reported Blood sugars varies but no hypoglycemia Participating in therapy very well Blood sugars reviewed. Labs reviewed. Checked meds and labs. Reviewed therapy notes. Conferred with RN. Review of Systems General: Fatigue Neurological: Weakness, Numbness, Incoordination Objective Exam Vital Signs Vital Signs Date Time Temp Pulse Resp B/P (MAP) Pulse Ox O2 Delivery O2 Flow Rate FiO2 09/19/19 08:00 Room Air 09/19/19 05:15 36.2 67 18 133/67 (89) 94 Capillary Refill : Less Than 3 Seconds General Appearance: No Apparent Distress, WD/WN HEENT: PERRL/EOMI, Normal ENT Inspection, Pharynx Normal Neck: Full Range of Motion, Normal Inspection, Non Tender, Supple, Carotid Bruit Respiratory: Chest Non Tender, Lungs Clear, Normal Breath Sounds, No Accessory Muscle Use, No Respiratory Distress Cardiovascular: Regular Rate, Rhythm, No Edema, No Gallop, No JVD, No Murmur, Normal Peripheral Pulses Gastrointestinal: Normal Bowel Sounds, No Organomegaly, No Pulsatile Mass, Non Tender, Soft Back: Normal Inspection, No CVA Tenderness, No Vertebral Tenderness Extremity: Normal Capillary Refill, Normal Inspection, Normal Range of Motion, Non Tender, No Calf Tenderness, No Pedal Edema, Other (left BKA) Neurologic/Psychiatric: Alert, Oriented x3, No Motor/Sensory Deficits, Normal 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 FIM Transfers Therapy Code Descriptions/Definitions Functional [place] Measure: 0=Not Assessed/NA 4=Minimal Assistance 1=Total Assistance 5=Supervision or Setup 2=Maximal Assistance 6=Modified [place] 3=Moderate Assistance 7=Complete IndependenceSCALE: Activities may be completed with or without assistive devices. 2-Ewtjsnwxmq-brognga completes the activity by him/herself with no assistance from a helper. 5-Set-up or Clean-up Assistance-helper sets up or cleans up; patient completes activity. [place] assists only prior to or following the activity. 4-Supervision or Touching Assistance-helper provides verbal cues and/or touching/steadying and/or contact guard assistance as patient completes activity. Assistance may be provided throughout the activity or intermittently. 3-Partial/Moderate Assistance-helper does LESS THAN HALF the effort. [place] lifts, holds or supports trunk or limbs, but provides less than half the effort. 2-Substantial/Maximal Assistance-helper does MORE THAN HALF the effort. [place] lifts or holds trunk or limbs and provides more than half the effort. 0-Ucufqgrcx-wmigek does ALL the effort. Patient does none of the effort to complete the activity. Or, the assistance of 2 or more helpers is required for the patient to complete the activity. If activity was not attempted, code reason: 7-Patient Refused. 9-Not Applicable-not attempted and the patient did not perform the activity before the current illness, exacerbation or injury. 10-Not Attempted due to Environmental Limitations-(lack of equipment, weather restraints, etc.). 88-Not Attempted due to Medical Conditions or Safety Concerns. Roll Left to Right (QC): 6 Sit to Lying (QC): 6 Sit to Stand (QC): 4 Chair/Jnt-cv-Fknbx Xfer(QC): 4 Car Transfer (QC): 4 Gait Training Does the Patient Walk?: No and Walking Goal IS indicated Distance: 20 Walk 10 feet (QC): 4 Walk 50 ft with 2 Turns(QC): 88 Walk 150 ft (QC): 88 Walking 10ft/uneven surface-QC: 88 Gait Persons Needed: 1 Gait Assistive Device: FWW Wheelchair Training Does the Pt Use a Wheelchair?: Yes Distance: 150'x2 Wheel 50 ft with 2 turns (QC): 6 Wheel 150 ft (QC): 6 Type of Wheelchair: Manual Stair Training 1 Step (curb) (QC): 88 4 Steps (QC): 88 12 Steps (QC): 88 Balance Picking up an Object (QC): 88 ADL-Treatment Eating (QC): 6 (Pt reports feeding self without assist.) Oral Hygiene (QC): 6 Shower/Bathe Self (QC): 5 Upper Body Dressing (QC): 5 Lower Body Dressing (QC): 4 On/Off Footwear (QC): 5 Toileting Hygiene (QC): 4 Toilet Transfer (QC): 3 Assessment/Plan Assessment and Plan Assess & Plan/Chief Complaint Assessment: s/p left BKA DM HTN CAD PVD PATRICK on CPAP Plan: CPAP IRF protocol BM regimen CPAP High risk for falls (1) Left below-knee amputee (2) Diabetes mellitus (3) Hypertension (4) CAD (coronary artery disease) (5) PVD (peripheral vascular disease) (6) PATRICK on CPAP DAMION WHITFIELD DO Sep 19, 2019 06:01
[2019-09-19] MEDS: inSUlin ASPART (NovoLOG) 1 UNIT/0.01 ML (CHARGE PER UNIT) SC SCH ×4 (06:13→21:03)
[2019-09-19] MEDS: GLIMEPIRIDE 2 MG (AMARYL) TAB PO SCH ×2 (06:14→17:45)
[2019-09-19] MEDS: LINAGLIPTIN (TRADJENTA) 5 MG TABLET PO SCH (06:15)
[2019-09-19] MEDS: CLOPIDOGREL 75 MG (PLAVIX) TABLET PO SCH (08:18)
[2019-09-19] MEDS: GABAPENTIN 100 MG (NEURONTIN) CAP PO SCH ×3 (08:18→21:03)
[2019-09-19] MEDS: ASPIRIN 81 MG CHEW (CHILDREN'S ASA) PO SCH (08:19)
[2019-09-19] MEDS: DOCUSATE SODIUM 100 MG (COLACE) CAP PO SCH ×2 (08:19→21:53)
[2019-09-19] MEDS: SENNA W/DOCUSATE (SENOKOT S) TABLET PO SCH ×2 (08:19→21:53)
[2019-09-19] MEDS: polyethylene glycoL POWDER 17 GM (MIRALAX) PACK PO SCH ×2 (08:19→21:53)
[2019-09-19] MEDS: MELOXICAM 7.5 MG (MOBIC) TABLET PO SCH (08:19)
--- NOTE | 2019-09-19 11:35 | Occupational Ther Daily Note ---
OT Current Status-Daily Note Subjective Pt alert, lying in bed. Pt agrees to therapy. No c/o pain at this time. Mental Status/Objective Patient Orientation: Person, Place, Time, Situation ADL-Treatment Pt agrees to shower. TRISTAN covered stump to keep dry. Min A to transfer onto/off of toilet. Close SBA to manipulate clothing while pt stabilized self with grabbar. Pt able to complete hygiene sitting on toilet. SBA for SPT from EOB <--> w/c. TRISTAN covered stump to keep dry. Min A for shower transfers due to low surface of bench. Pt completed shower sitting on bench, did not stand to cleanse buttocks, leaned side to side. Pt used grabbars to stand with CGA for stability while drying buttocks. After set up, pt used dressing stick to thread pants off/on lower legs, pt stood with CGA to hike pants over hips. Pt sat at sink and completed oral care and grooming. Pt able to don/doff shoe by self. Therapy Code Descriptions/Definitions Functional [place] Measure: 0=Not Assessed/NA 4=Minimal Assistance 1=Total Assistance 5=Supervision or Setup 2=Maximal Assistance 6=Modified [place] 3=Moderate Assistance 7=Complete IndependenceSCALE: Activities may be completed with or without assistive devices. 7-Hxwkzlhjbe-zgovnfa completes the activity by him/herself with no assistance from a helper. 5-Set-up or Clean-up Assistance-helper sets up or cleans up; patient completes activity. [place] assists only prior to or following the activity. 4-Supervision or Touching Assistance-helper provides verbal cues and/or touching/steadying and/or contact guard assistance as patient completes activity. Assistance may be provided throughout the activity or intermittently. 3-Partial/Moderate Assistance-helper does LESS THAN HALF the effort. [place] lifts, holds or supports trunk or limbs, but provides less than half the effort. 2-Substantial/Maximal Assistance-helper does MORE THAN HALF the effort. [place] lifts or holds trunk or limbs and provides more than half the effort. 1-Vqpzqwpaw-bgysva does ALL the effort. Patient does none of the effort to complete the activity. Or, the assistance of 2 or more helpers is required for the patient to complete the activity. If activity was not attempted, code reason: 7-Patient Refused. 9-Not Applicable-not attempted and the patient did not perform the activity before the current illness, exacerbation or injury. 10-Not Attempted due to Environmental Limitations-(lack of equipment, weather restraints, etc.). 88-Not Attempted due to Medical Conditions or Safety Concerns. Oral Hygiene (QC): 6 Shower/Bathe Self (QC): 4 Upper Body Dressing (QC): 5 Lower Body Dressing (QC): 4 On/Off Footwear: 5 Toileting Hygiene (QC): 5 Toilet Transfer (QC): 3 Other Treatment Pt propelled w/c to therapy gym to complete UE exercises to increase strength and activity tolerance for daily functional tasks. Arm bike for 15 min at 25 ornelas resistance without breaks. Medium resistance theraband UE exercises, 3 sets 10 reps. Worked on standing balance at parallel bars, 2x's before pt's knee fatigued. After therapy, pt lying in bed with call light/phone in reach. All needs met in room. OT Short Term Goals Short Term Goals Time Frame: Sep 22, 2019 Toileting hygiene: 5 Shower/bathe self: 4 Lower body dressin OT Wood Planer Goals Wood Planer Goals Time Frame: Oct 06, 2019 Eating (QC): 6 Oral Hygiene (QC): 6 Toileting Hygiene (QC): 6 Shower/Bathe Self (QC): 5 Upper Body Dressing (QC): 6 Lower Body Dressing (QC): 6 On/Off Footwear (QC): 6 Additional Goals: 1-Demonstrate ADL Tasks, 2-Verbalize Understanding, 3- ImproveStrength/Dhaval 1=Demonstrate adherence to instructed precautions during ADL tasks. 2=Patient will verbalize/demonstrate understanding of assistive devices/modifications for ADL. 3=Patient will improve strength/tolerance for activity to enable patient to perform ADL's. OT Education/Plan Problem List/Assessment Assessment: Decreased Activ Tolerance, Decreased UE Strength, Impaired Funct Balance, Impaired Self-Care Skills Discharge Recommendations Plan/Recommendations: Continue POC Treatment Plan/Plan of Care Patient would benefit from OT for education, treatment and training to promote independence in ADL's, mobility, safety and/or upper extremity function for ADL's. Plan of Care: ADL Retraining, Functional Mobility, UE Funct Exercise/Act Treatment Duration: Oct 06, 2019 Frequency: At least 5 of 7 days/Wk (IRF) Estimated Hrs Per Day: 1.5 hours per day Rehab Potential: Good Time/GCodes Start Time: 07:00 Stop Time: 08:30 Total Time Billed (hr/min): 90 Billed Treatment Time 1 visit-ADL 3 (45 min) EX 3 (45 min) JUANJOSE PORRAS Sep 19, 2019 11:35
--- NOTE | 2019-09-19 11:47 | Physical Therapy Daily Note ---
PT Daily Note-Current Subjective Pt agreeable. Pt denies pain. Mental Status Patient Orientation: Person, Place, Situation Transfers SCALE: Activities may be completed with or without assistive devices. 8-Jvnhhqbibf-flrfigx completes the activity by him/herself with no assistance f rom a helper. 5-Set-up or Clean-up Assistance-helper sets up or cleans up; patient completes activity. [place] assists only prior to or following the activity. 4-Supervision or Touching Assistance-helper provides verbal cues and/or touching/steadying and/or contact guard assistance as patient completes activity. Assistance may be provided throughout the activity or intermittently. 3-Partial/Moderate Assistance-helper does LESS THAN HALF the effort. [place] lifts, holds or supports trunk or limbs, but provides less than half the effort. 2-Substantial/Maximal Assistance-helper does MORE THAN HALF the effort. [place] lifts or holds trunk or limbs and provides more than half the effort. 1-Mlubuqzbk-kqzyrx does ALL the effort. Patient does none of the effort to complete the activity. Or, the assistance of 2 or more helpers is required for the patient to complete the activity. If activity was not attempted, code reason: 7-Patient Refused. 9-Not Applicable-not attempted and the patient did not perform the activity before the current illness, exacerbation or injury. 10-Not Attempted due to Environmental Limitations-(lack of equipment, weather restraints, etc.). 88-Not Attempted due to Medical Conditions or Safety Concerns. Weight Bearing Left Lower Extremity: Left Non Weight Bearing Exercises NuStep Minutes: 15 NuStep Workload: 6 Treatments Pt performed (B) LE ther ex QS, GS, SLR, hip abd, (R) heel slide, (R) AP, S/L hip abd, S/L hip ext x 25 each. Pt positioned in full supine position for neutral hip position (stretch) x 1 min. Transfers in/out bed mod (I), SPT mod (I) and sit <>stand with elevated bed and FWW. Pt practiced standing at bedside 5 reps x 1min each. Pt performed standing (L) hip flexion, abd and ext x [address] [facility] mobility x 1000(+) ft at steady speed. Assessment Current Status: Good Progress Pt viry above treatment very well with rest breaks as needed. Transfers all mod (I) and safe, SBA. Pt resting in bed with call light and all needs met post therapy session. PT Short Term Goals Short Term Goals Time Frame: Sep 21, 2019 Roll Left & Right: 6 Sit to lyin Lying to sitting on side of be: 6 Sit to stand: 4 Chair/qsn-io-jbynh transfer: 4 Walk 10 feet: 4 Walk 50 feet with two turns: 4 PT Correction Goals Correction Goals PT Correction Goals Time Frame: Oct 05, 2019 Roll Left & Right (QC): 6 Sit to Lying (QC): 6 Lying-Sitting on Side/Bed(QC): 6 Sit to Stand (QC): 6 Chair/Pcn-bp-Vllrq Xfer(QC): 6 Toilet Transfer (QC): 6 Car Transfer (QC): 6 Walk 10 feet (QC): 5 Walk 50ft with 2 Turns (QC): 4 Walking 10ft on Uneven Surface: 4 1 Step (curb) (QC): 4 4 Steps (QC): 4 Wheel 50 feet with 2 turns (QC: 6 Type: Manual Wheel 150 feet: 6 Type: Manual PT Plan Treatment/Plan Treatment Plan: Continue Plan of Care Treatment Plan: Bed Mobility, Education, Functional Activity Dhaval, Functional Strength, Group Therapy, Gait, Safety, Therapeutic Exercise, Transfers Treatment Duration: Oct 05, 2019 Frequency: At least 5 of 7 days/Wk (IRF) Estimated Hrs Per Day: 1.5 hours per day Patient and/or Family Agrees t: Yes Time/GCodes Time In: 1000 Time Out: 1130 Total Billed Treatment Time: 90 Total Billed Treatment 1, ther ex 30min, WC 30min, FA 30min LATANYA PEARSON [facility] Sep 19, 2019 11:47
[2019-09-19 16:00] VITALS: BP 135/66
[2019-09-19] MEDS: ENOXAPARIN 40 MG/0.4 ML (LOVENOX) SYR SC SCH (17:45)
[2019-09-19 18:00] VITALS: BP 144/66
[2019-09-20] MEDS: GLIMEPIRIDE 2 MG (AMARYL) TAB PO SCH ×2 (05:58→17:46)
[2019-09-20] MEDS: LINAGLIPTIN (TRADJENTA) 5 MG TABLET PO SCH (05:58)
[2019-09-20] MEDS: inSUlin ASPART (NovoLOG) 1 UNIT/0.01 ML (CHARGE PER UNIT) SC SCH ×4 (05:59→21:39)
[2019-09-20 06:01] VITALS: BP 132/64
[2019-09-20] MEDS: DOCUSATE SODIUM 100 MG (COLACE) CAP PO SCH ×2 (10:13→20:08)
[2019-09-20] MEDS: CLOPIDOGREL 75 MG (PLAVIX) TABLET PO SCH (10:13)
[2019-09-20] MEDS: MELOXICAM 7.5 MG (MOBIC) TABLET PO SCH (10:13)
[2019-09-20] MEDS: SENNA W/DOCUSATE (SENOKOT S) TABLET PO SCH ×2 (10:14→20:08)
[2019-09-20] MEDS: polyethylene glycoL POWDER 17 GM (MIRALAX) PACK PO SCH ×2 (10:14→20:09)
[2019-09-20] MEDS: ASPIRIN 81 MG CHEW (CHILDREN'S ASA) PO SCH (10:19)
[2019-09-20] MEDS: GABAPENTIN 100 MG (NEURONTIN) CAP PO SCH ×3 (10:20→20:08)
--- NOTE | 2019-09-20 15:19 | PM&R Progress Note ---
Subjective HPI/CC On Admission Date Seen by Provider: Sep 20, 2019 Time Seen by Provider: 11:30 Subjective/Events-last exam Pt doing pretty well Uses his CPAP every night and naps No pain is reported Blood sugar 232 this morning given SSI Participating in therapy very well No falls Labs reviewed. Checked meds and labs. Reviewed therapy notes. Conferred with RN. Review of Systems General: Fatigue Objective Exam Vital Signs Vital Signs Date Time Temp Pulse Resp B/P (MAP) Pulse Ox O2 Delivery O2 Flow Rate FiO2 09/20/19 06:01 36.4 78 18 132/64 (86) 96 Room Air Capillary Refill : Less Than 3 SecondsLess Than 3 Seconds General Appearance: No Apparent Distress, WD/WN HEENT: PERRL/EOMI, Normal ENT Inspection, Pharynx Normal Neck: Full Range of Motion, Normal Inspection, Non Tender, Supple, Carotid Bruit Respiratory: Chest Non Tender, Lungs Clear, Normal Breath Sounds, No Accessory Muscle Use, No Respiratory Distress Cardiovascular: Regular Rate, Rhythm, No Edema, No Gallop, No JVD, No Murmur, Normal Peripheral Pulses Gastrointestinal: Normal Bowel Sounds, No Organomegaly, No Pulsatile Mass, Non Tender, Soft Back: Normal Inspection, No CVA Tenderness, No Vertebral Tenderness Extremity: Normal Capillary Refill, Normal Inspection, Normal Range of Motion, Non Tender, No Calf Tenderness, No Pedal Edema, Other (left BKA) Neurologic/Psychiatric: Alert, Oriented x3, No Motor/Sensory Deficits, Normal Mood/Affect, m[place] II-XII Norm as Tested Skin: Normal Color, Warm/Dry Lymphatic: No Adenopathy Results/Procedures Lab Patient resulted labs reviewed. FIM Transfers Therapy Code Descriptions/Definitions Functional [place] Measure: 0=Not Assessed/NA 4=Minimal Assistance 1=Total Assistance 5=Supervision or Setup 2=Maximal Assistance 6=Modified [place] 3=Moderate Assistance 7=Complete IndependenceSCALE: Activities may be completed with or without assistive devices. 3-Sxdcyzdxst-mkvkppp completes the activity by him/herself with no assistance from a helper. 5-Set-up or Clean-up Assistance-helper sets up or cleans up; patient completes activity. [place] assists only prior to or following the activity. 4-Supervision or Touching Assistance-helper provides verbal cues and/or touching/steadying and/or contact guard assistance as patient completes activity. Assistance may be provided throughout the activity or intermittently. 3-Partial/Moderate Assistance-helper does LESS THAN HALF the effort. [place] lifts, holds or supports trunk or limbs, but provides less than half the effort. 2-Substantial/Maximal Assistance-helper does MORE THAN HALF the effort. [place] lifts or holds trunk or limbs and provides more than half the effort. 6-Ycawygehc-nfzcuz does ALL the effort. Patient does none of the effort to complete the activity. Or, the assistance of 2 or more helpers is required for the patient to complete the activity. If activity was not attempted, code reason: 7-Patient Refused. 9-Not Applicable-not attempted and the patient did not perform the activity before the current illness, exacerbation or injury. 10-Not Attempted due to Environmental Limitations-(lack of equipment, weather restraints, etc.). 88-Not Attempted due to Medical Conditions or Safety Concerns. Roll Left to Right (QC): 6 Sit to Lying (QC): 6 Sit to Stand (QC): 4 Chair/Wzd-ss-Fjwsb Xfer(QC): 4 Car Transfer (QC): 4 Gait Training Does the Patient Walk?: No and Walking Goal IS indicated Distance: 20 Walk 10 feet (QC): 4 Walk 50 ft with 2 Turns(QC): 88 Walk 150 ft (QC): 88 Walking 10ft/uneven surface-QC: 88 Gait Persons Needed: 1 Gait Assistive Device: FWW Wheelchair Training Does the Pt Use a Wheelchair?: Yes Distance: 150'x2 Wheel 50 ft with 2 turns (QC): 6 Wheel 150 ft (QC): 6 Type of Wheelchair: Manual Stair Training 1 Step (curb) (QC): 88 4 Steps (QC): 88 12 Steps (QC): 88 Balance Picking up an Object (QC): 88 ADL-Treatment Eating (QC): 6 (Pt reports feeding self without assist.) Oral Hygiene (QC): 6 Shower/Bathe Self (QC): 4 Upper Body Dressing (QC): 5 Lower Body Dressing (QC): 4 On/Off Footwear (QC): 5 Toileting Hygiene (QC): 5 Toilet Transfer (QC): 3 Assessment/Plan Assessment and Plan Assess & Plan/Chief Complaint Assessment: s/p left BKA DM HTN CAD PVD PATRICK on CPAP Plan: CPAP IRF protocol BM regimen CPAP High risk for falls (1) Left below-knee amputee (2) Diabetes mellitus (3) Hypertension (4) CAD (coronary artery disease) (5) PVD (peripheral vascular disease) (6) PATRICK on CPAP DAMION WHITFIELD DO Sep 20, 2019 15:19
[2019-09-20 17:02] VITALS: BP 132/68
[2019-09-20] MEDS: ENOXAPARIN 40 MG/0.4 ML (LOVENOX) SYR SC SCH (17:46)
--- NOTE | 2019-09-20 21:00 | NUR ---
STATES OCCASIONAL PHANTOM PAIN, BUT BASICALLY PAIN FREE.
[2019-09-21 05:57] VITALS: BP 143/72
--- NOTE | 2019-09-21 06:30 | NUR ---
SLEPT WELL. NO COMPLAINTS THIS AM.
[2019-09-21] MEDS: LINAGLIPTIN (TRADJENTA) 5 MG TABLET PO SCH (06:36)
[2019-09-21] MEDS: GLIMEPIRIDE 2 MG (AMARYL) TAB PO SCH ×2 (06:36→17:19)
[2019-09-21] MEDS: inSUlin ASPART (NovoLOG) 1 UNIT/0.01 ML (CHARGE PER UNIT) SC SCH ×4 (06:36→20:31)
[2019-09-21 07:21] LABS: BASOPHILS % (AUTO) 0 % (0-10); EOSINOPHILS % (AUTO) 1 % (0-10); HEMATOCRIT 39 % (40-54); HEMOGLOBIN 12.8 G/DL (13.3-17.7); LYMPHOCYTES # (AUTO) 2.1 X 10^3 (1.0-4.0); LYMPHOCYTES % (AUTO) 39 % (12-44); MEAN CORPUSCULAR HEMOGLOBIN 27 PG (25-34); MEAN CORPUSCULAR HGB CONC 33 G/DL (32-36); MEAN CORPUSCULAR VOLUME 82 FL (80-99); MEAN PLATELET VOLUME 10.3 FL (7.4-10.4); MONOCYTES # (AUTO) 0.5 X 10^3 (0.0-1.0); MONOCYTES % (AUTO) 10 % (0-12); NEUTROPHILS # (AUTO) 2.8 X 10^3 (1.8-7.8); NEUTROPHILS % (AUTO) 51 % (42-75); PLATELET COUNT 317 10^3/uL (130-400); RED CELL DISTRIBUTION WIDTH 14.8 % (10.0-14.5); WHITE BLOOD COUNT 5.4 10^3/uL (4.3-11.0)
[2019-09-21 07:47] LABS: ALANINE AMINOTRANSFERASE 31 U/L (0-55); ALBUMIN 3.3 GM/DL (3.2-4.5); ALKALINE PHOSPHATASE 54 U/L (40-136); BILIRUBIN,TOTAL 0.4 MG/DL (0.1-1.0); BUN/CREATININE RATIO 23; CALCIUM 9.1 MG/DL (8.5-10.1); CARBON DIOXIDE 25 MMOL/L (21-32); CHLORIDE 103 MMOL/L (98-107); CREATININE SERUM 0.87 MG/DL (0.60-1.30); GFR ESTIMATED > 60; GLUCOSE 212 MG/DL (70-105); POTASSIUM 4.8 MMOL/L (3.6-5.0); SODIUM 137 MMOL/L (135-145); TOTAL PROTEIN 6.8 GM/DL (6.4-8.2)
[2019-09-21] MEDS: DOCUSATE SODIUM 100 MG (COLACE) CAP PO SCH ×2 (08:01→20:24)
[2019-09-21] MEDS: SENNA W/DOCUSATE (SENOKOT S) TABLET PO SCH ×2 (08:01→20:24)
[2019-09-21] MEDS: polyethylene glycoL POWDER 17 GM (MIRALAX) PACK PO SCH ×2 (08:01→20:23)
[2019-09-21] MEDS: CLOPIDOGREL 75 MG (PLAVIX) TABLET PO SCH (08:19)
[2019-09-21] MEDS: MELOXICAM 7.5 MG (MOBIC) TABLET PO SCH (08:19)
[2019-09-21] MEDS: GABAPENTIN 100 MG (NEURONTIN) CAP PO SCH ×3 (08:19→20:23)
[2019-09-21] MEDS: ASPIRIN 81 MG CHEW (CHILDREN'S ASA) PO SCH (08:19)
--- NOTE | 2019-09-21 09:03 | Occupational Ther Daily Note ---
OT Current Status-Daily Note Subjective Pt alert, lying in bed. Pt agrees to therapy. No c/o pain. Mental Status/Objective Patient Orientation: Person, Place, Time, Situation ADL-Treatment Pt agrees to shower. Independent with bed mobility. SBA for SPT to w/c. Pt propelled w/c to bathroom and transferred with CGA to toilet and completed hygiene sitting on toilet independently. Min A for sit to stand from toilet and SPT to w/c. Transferred to shower with SBA then min A to transfer out of shower due to low surface. Pt completed shower by self sitting and leaning side to side to cleanse bottom. Assist to cover brace for shower. After setup, pt able to don/doff upper body clothing by self. After set up and using AE to thread foot/stump into pant leg, pt requires close SBA when hiking pants over hips in standing. Pt able to don/doff socks and shoes by self. Pt sits at sink to complete own oral care and grooming. Therapy Code Descriptions/Definitions Functional [place] Measure: 0=Not Assessed/NA 4=Minimal Assistance 1=Total Assistance 5=Supervision or Setup 2=Maximal Assistance 6=Modified [place] 3=Moderate Assistance 7=Complete IndependenceSCALE: Activities may be completed with or without assistive devices. 9-Cwrwmhtrwt-dewcpxp completes the activity by him/herself with no assistance from a helper. 5-Set-up or Clean-up Assistance-helper sets up or cleans up; patient completes activity. [place] assists only prior to or following the activity. 4-Supervision or Touching Assistance-helper provides verbal cues and/or touching/steadying and/or contact guard assistance as patient completes activity. Assistance may be provided throughout the activity or intermittently. 3-Partial/Moderate Assistance-helper does LESS THAN HALF the effort. [place] lifts, holds or supports trunk or limbs, but provides less than half the effort. 2-Substantial/Maximal Assistance-helper does MORE THAN HALF the effort. [place] lifts or holds trunk or limbs and provides more than half the effort. 3-Oxxkytfdr-awbmta does ALL the effort. Patient does none of the effort to complete the activity. Or, the assistance of 2 or more helpers is required for the patient to complete the activity. If activity was not attempted, code reason: 7-Patient Refused. 9-Not Applicable-not attempted and the patient did not perform the activity before the current illness, exacerbation or injury. 10-Not Attempted due to Environmental Limitations-(lack of equipment, weather restraints, etc.). 88-Not Attempted due to Medical Conditions or Safety Concerns. Oral Hygiene (QC): 6 Shower/Bathe Self (QC): 4 Upper Body Dressing (QC): 5 Lower Body Dressing (QC): 4 On/Off Footwear: 5 Toileting Hygiene (QC): 6 Toilet Transfer (QC): 3 Other Treatment Pt propelled self to therapy then positioned w/c at therapy table. Pt completed arm bike for 15 min at 25 ornelas resistance, one break due to nrsg administering medications, to increase strength and activity tolerance for daily functional tasks. Pt then propelled w/c back to room and positioned w/c with verbal cues for distance to bed, SBA for SPT. Independent bed mobility to scoot up in bed. After therapy, pt lying in bed with call light/phone in reach. All needs met in room. OT Short Term Goals Short Term Goals Time Frame: Sep 22, 2019 Toileting hygiene: 5 Shower/bathe self: 4 Lower body dressin OT Group Home Goals Group Home Goals Time Frame: Oct 06, 2019 Eating (QC): 6 Oral Hygiene (QC): 6 Toileting Hygiene (QC): 6 Shower/Bathe Self (QC): 5 Upper Body Dressing (QC): 6 Lower Body Dressing (QC): 6 On/Off Footwear (QC): 6 Additional Goals: 1-Demonstrate ADL Tasks, 2-Verbalize Understanding, 3- ImproveStrength/Dhaval 1=Demonstrate adherence to instructed precautions during ADL tasks. 2=Patient will verbalize/demonstrate understanding of assistive devices/modifications for ADL. 3=Patient will improve strength/tolerance for activity to enable patient to perform ADL's. OT Education/Plan Problem List/Assessment Assessment: Decreased Activ Tolerance, Decreased UE Strength, Impaired Funct Balance, Impaired Self-Care Skills Discharge Recommendations Plan/Recommendations: Continue POC Treatment Plan/Plan of Care Patient would benefit from OT for education, treatment and training to promote independence in ADL's, mobility, safety and/or upper extremity function for ADL's. Plan of Care: ADL Retraining, Functional Mobility, UE Funct Exercise/Act Treatment Duration: Oct 06, 2019 Frequency: At least 5 of 7 days/Wk (IRF) Estimated Hrs Per Day: 1.5 hours per day Rehab Potential: Good Time/GCodes Start Time: 07:30 Stop Time: 09:00 Total Time Billed (hr/min): 90 Billed Treatment Time 1 visit-ADL 4 (60 min) EX 2 (30 min) JUANJOSE PORRAS Sep 21, 2019 09:03
--- NOTE | 2019-09-21 09:40 | NUR ---
provided prayer and Communion.
--- NOTE | 2019-09-21 09:47 | PM&R Progress Note ---
Subjective HPI/CC On Admission Date Seen by Provider: Sep 21, 2019 Time Seen by Provider: 09:30 Subjective/Events-last exam Will place him at a fall type of scenario today real life in case he does have a fall at home Labs stable Bowels moved this morning Doing very well Mobic and Gabapentin are helping with any type of pain Dressing is not changed on the stump per [facility] instructions Participating in therapy very well No falls Labs reviewed. Checked meds and labs. Reviewed therapy notes. Conferred with RN. Review of Systems General: Fatigue Musculoskeletal: leg pain Neurological: Incoordination Objective Exam Vital Signs Vital Signs Date Time Temp Pulse Resp B/P (MAP) Pulse Ox O2 Delivery O2 Flow Rate FiO2 09/21/19 17:14 36.6 78 18 134/76 (95) 97 Room Air Capillary Refill : Less Than 3 SecondsLess Than 3 Seconds General Appearance: No Apparent Distress, WD/WN HEENT: PERRL/EOMI, Normal ENT Inspection, Pharynx Normal Neck: Full Range of Motion, Normal Inspection, Non Tender, Supple, Carotid Bruit Respiratory: Chest Non Tender, Lungs Clear, Normal Breath Sounds, No Accessory Muscle Use, No Respiratory Distress Cardiovascular: Regular Rate, Rhythm, No Edema, No Gallop, No JVD, No Murmur, Normal Peripheral Pulses Gastrointestinal: Normal Bowel Sounds, No Organomegaly, No Pulsatile Mass, Non Tender, Soft Back: Normal Inspection, No CVA Tenderness, No Vertebral Tenderness Extremity: Normal Capillary Refill, Normal Inspection, Normal Range of Motion, Non Tender, No Calf Tenderness, No Pedal Edema, Other (left BKA) Neurologic/Psychiatric: Alert, Oriented x3, No Motor/Sensory Deficits, Normal Mood/Affect, snuff box finisher II-XII Norm as Tested Skin: Normal Color, Warm/Dry Lymphatic: No Adenopathy Results/Procedures Lab Laboratory Tests 09/21/19 07:06 Patient resulted labs reviewed. FIM Transfers Therapy Code Descriptions/Definitions Functional [place] Measure: 0=Not Assessed/NA 4=Minimal Assistance 1=Total Assistance 5=Supervision or Setup 2=Maximal Assistance 6=Modified [place] 3=Moderate Assistance 7=Complete IndependenceSCALE: Activities may be completed with or without assistive devices. 8-Soehfnrfeo-ryrxjen completes the activity by him/herself with no assistance from a helper. 5-Set-up or Clean-up Assistance-helper sets up or cleans up; patient completes activity. [place] assists only prior to or following the activity. 4-Supervision or Touching Assistance-helper provides verbal cues and/or touching/steadying and/or contact guard assistance as patient completes activity. Assistance may be provided throughout the activity or intermittently. 3-Partial/Moderate Assistance-helper does LESS THAN HALF the effort. [place] lifts, holds or supports trunk or limbs, but provides less than half the effort. 2-Substantial/Maximal Assistance-helper does MORE THAN HALF the effort. [place] lifts or holds trunk or limbs and provides more than half the effort. 4-Xcxxnkacm-zlebsm does ALL the effort. Patient does none of the effort to complete the activity. Or, the assistance of 2 or more helpers is required for the patient to complete the activity. If activity was not attempted, code reason: 7-Patient Refused. 9-Not Applicable-not attempted and the patient did not perform the activity before the current illness, exacerbation or injury. 10-Not Attempted due to Environmental Limitations-(lack of equipment, weather restraints, etc.). 88-Not Attempted due to Medical Conditions or Safety Concerns. Roll Left to Right (QC): 6 Sit to Lying (QC): 6 Sit to Stand (QC): 4 Chair/Jsl-an-Qimgb Xfer(QC): 4 Car Transfer (QC): 4 Gait Training Does the Patient Walk?: No and Walking Goal IS indicated Distance: 20 Walk 10 feet (QC): 4 Walk 50 ft with 2 Turns(QC): 88 Walk 150 ft (QC): 88 Walking 10ft/uneven surface-QC: 88 Gait Persons Needed: 1 Gait Assistive Device: FWW Wheelchair Training Does the Pt Use a Wheelchair?: Yes Distance: 150'x2 Wheel 50 ft with 2 turns (QC): 6 Wheel 150 ft (QC): 6 Type of Wheelchair: Manual Stair Training 1 Step (curb) (QC): 88 4 Steps (QC): 88 12 Steps (QC): 88 Balance Picking up an Object (QC): 88 ADL-Treatment Eating (QC): 6 (Pt reports feeding self without assist.) Oral Hygiene (QC): 6 Shower/Bathe Self (QC): 4 Upper Body Dressing (QC): 5 Lower Body Dressing (QC): 4 On/Off Footwear (QC): 5 Toileting Hygiene (QC): 5 Toilet Transfer (QC): 3 Assessment/Plan Assessment and Plan Assess & Plan/Chief Complaint Assessment: s/p left BKA DM HTN CAD PVD PATRICK on CPAP Plan: CPAP IRF protocol BM regimen CPAP High risk for falls (1) Left below-knee amputee (2) Diabetes mellitus (3) Hypertension (4) CAD (coronary artery disease) (5) PVD (peripheral vascular disease) (6) PATRICK on CPAP DAMION WHITFIELD DO Sep 21, 2019 09:47
--- NOTE | 2019-09-21 10:56 | Progress Note ---
CARLA GILES,MED STUDENT 09/21/19 1056: Progress Note Subjective: Today, Mr. Bobby is doing well. He denies any pain, it is well controlled with mobic and gabapentin. BM today. He has continued to participate in both physical and occupational therapy Objective: General: well developed/well nourished, no acute distress Heart: regular rate and rhythm, no murmurs Lungs: clear to auscultation bilaterally MSK: left BKA, dressing dry and clean Neuro: alert and oriented x3 Assessment: S/P Left BKA HTN DM PATRICK - with CPAP CAD Plan: High risk for falls - will plan fall evaluation with physical therapy and his ability to get up from a fall position and floor transfer If stable and able to navigate home safely will possibly discharge to home later this week. Continue PT/OT - participating well in therapy Continue use of CPAP with sleep LALA WHITFIELD DO 09/21/192049: Supervisory-Addendum Brief Verification & Attestation Participated in pt care: history, MDM, physical Personally performed: exam, history, MDM, supervision of care Care discussed with: Medical Student Procedures: n/a Results interpretation: Verified all documentation Verification and Attestation of Medical Student E/M Service A medical student performed and documented this service in my presence. I reviewed and verified all information documented by the medical student and made modifications to such information, when appropriate. I personally performed the physical exam and medical decision making. Lala Whitfield, Sep 21, 2019,20:49 CARLA GILES,MED STUDENT Sep 21, 2019 10:56 LALA WHITFIELD DO Sep 21, 2019 20:50
--- NOTE | 2019-09-21 10:58 | Physical Therapy Progress Note ---
Therapy Progress Note Physician requested pt to attempt a floor transfer. Assisted PATROL COMMANDER with attempt. Reviewed reason and process to address this transfer with the patient. Pt started sitting Edge of mat to lower himself to the floor (with asssit of this PT, a PATROL COMMANDER and another PT); pt unable to safely and effectively lower himself to the floor to attempt the transfer back up. The primary limitation was left knee (BKA) encased in an extended splint and right knee (post TKR) unable to flex deeply enough ( due to ROM limits and reports of pain) to lower to the ground. Pt was able to lower half the distance to the floor and then expressed that he could not go any further. He was assisted by 3 staff to return to edge of mat. JUANJOSE BANG PT Sep 21, 2019 10:57
--- NOTE | 2019-09-21 11:28 | Physical Therapy Daily Note ---
PT Daily Note-Current Subjective Pt. agrees to Rx. States he is getting along very well TRFing toward right side and managing w/c etc with minimal increased pain in right knee. This ROOFING PLANT SUPERVISOR shared that Dr requested he trial a floor TRF. Pt. agreed to attempt it but mid lowering to floor pt. c/o increased pain in R knee and attempt was abandoned. ( see details below) Pain Location: No Pain Reported Mental Status Patient Orientation: Normal For Age Attachments: Other-See Comments (solint on L residual limb) Transfers SCALE: Activities may be completed with or without assistive devices. 4-Hyqhsrxxta-mrjrupw completes the activity by him/herself with no assistance from a helper. 5-Set-up or Clean-up Assistance-helper sets up or cleans up; patient completes activity. [place] assists only prior to or following the activity. 4-Supervision or Touching Assistance-helper provides verbal cues and/or touching/steadying and/or contact guard assistance as patient completes act ivity. Assistance may be provided throughout the activity or intermittently. 3-Partial/Moderate Assistance-helper does LESS THAN HALF the effort. [place] lifts, holds or supports trunk or limbs, but provides less than half the effort. 2-Substantial/Maximal Assistance-helper does MORE THAN HALF the effort. [place] lifts or holds trunk or limbs and provides more than half the effort. 1-Zxxefraqg-zjfayj does ALL the effort. Patient does none of the effort to complete the activity. Or, the assistance of 2 or more helpers is required for the patient to complete the activity. If activity was not attempted, code reason: 7-Patient Refused. 9-Not Applicable-not attempted and the patient did not perform the activity before the current illness, exacerbation or injury. 10-Not Attempted due to Environmental Limitations-(lack of equipment, weather restraints, etc.). 88-Not Attempted due to Medical Conditions or Safety Concerns. Roll Left & Right (QC): 6 Sit to Lying (QC): 6 Lying to Sitting/Side of Bed(Q: 6 Sit to Stand (QC): 5 Chair/Jme-tv-Xxiii Xfer(QC): 5 pt. aligns w/c with R side TRF with good technique 8/8 trials. SBA to CGA for all Weight Bearing Left Lower Extremity: Left Non Weight Bearing Gait Training no gait as this aggravates pain an instability in right knee Wheelchair Training Does the Pt Use a Wheelchair?: Yes Wheel 50 ft with 2 turns (QC): 6 Wheel 150 ft (QC): 6 Type of Wheelchair: Manual fig 8s, backing etc all mod I Exercises Supine Ex: Bridging, Ankle pumps, Quad Set, Rolling, Glut sets, Heel Slides, Short Arc Quads, Scooting, Straight leg raise, Hip abd/add (side and back bilat) Supine Reps: 12 (x2) NuStep Minutes: 11 NuStep Workload: 6 Treatments nustep for functional strengthening and improved functional activity tolerance . During attempt to trial floor TRF pt was midst attempt to lower to floor from mat in tricep dip position ( as pt would not be able to TRF in traditional "crawl up " style as his residual limb is in splint extended at knee and right knee is "bone on bone " per pt. ) During slow drop to the floor pts. right knee became more and more painful as it was pushed into extreme flexion. assist of 2- 3 to help pat back to edge of mat in sitting. floor TRF attempt abandoned secondary to safety concerns, Marline Sue RPT and Lion DPT assisted and concurred with abandon of trial of floor TRF Assessment Current Status: Good Progress this ROOFING PLANT SUPERVISOR feels it is safest and most prudent for pt. to utilize safe right sided SPTs and w/c for transport until he recieves prosthesis and is a safe ambulator as right knee is very arthritic and unstable at times PT Short Term Goals Short Term Goals Time Frame: Sep 21, 2019 Roll Left & Right: 6 Sit to lyin Lying to sitting on side of be: 6 Sit to stand: 4 Chair/map-mc-lqacg transfer: 4 Walk 10 feet: 4 Walk 50 feet with two turns: 4 PT [facility] Goals [facility] Goals PT Chief Data Officer Goals Time Frame: Oct 05, 2019 Roll Left & Right (QC): 6 Sit to Lying (QC): 6 Lying-Sitting on Side/Bed(QC): 6 Sit to Stand (QC): 6 Chair/Hvi-xc-Qwbql Xfer(QC): 6 Toilet Transfer (QC): 6 Car Transfer (QC): 6 Walk 10 feet (QC): 5 Walk 50ft with 2 Turns (QC): 4 Walking 10ft on Uneven Surface: 4 1 Step (curb) (QC): 4 4 Steps (QC): 4 Wheel 50 feet with 2 turns (QC: 6 Type: Manual Wheel 150 feet: 6 Type: Manual PT Plan Treatment/Plan Treatment Plan: Continue Plan of Care Treatment Plan: Bed Mobility, Education, Functional Activity Dhaval, Functional Strength, Group Therapy, Gait, Safety, Therapeutic Exercise, Transfers Treatment Duration: Oct 05, 2019 Frequency: At least 5 of 7 days/Wk (IRF) Estimated Hrs Per Day: 1.5 hours per day Patient and/or Family Agrees t: Yes Safety Risks/Education Patient Education: Transfer Techniques, Correct Positioning, W/C Management, Disease Process, Safety Issues Time/GCodes Time In: 1000 Time Out: 1130 Total Billed Treatment Time: 90 Total Billed Treatment 1,EX45m,FA30m,WC15m MELVIN TURNER ROOFING PLANT SUPERVISOR Sep 21, 2019 11:27
[2019-09-21 17:14] VITALS: BP 134/76
[2019-09-21] MEDS: ENOXAPARIN 40 MG/0.4 ML (LOVENOX) SYR SC SCH (17:20)
--- NOTE | 2019-09-21 19:14 | NUR ---
bedside report received from ARTIS RAZA, assume care of pt
--- NOTE | 2019-09-21 20:32 | NUR ---
pt refused Colace, miralax & Senokot, fsbs 197 NovoLog 4 units given
[2019-09-22 05:52] VITALS: BP 152/61
[2019-09-22] MEDS: inSUlin ASPART (NovoLOG) 1 UNIT/0.01 ML (CHARGE PER UNIT) SC SCH ×4 (06:00→20:05)
[2019-09-22] MEDS: LINAGLIPTIN (TRADJENTA) 5 MG TABLET PO SCH (06:28)
[2019-09-22] MEDS: GLIMEPIRIDE 2 MG (AMARYL) TAB PO SCH ×2 (06:28→17:21)
[2019-09-22 07:55] VITALS: BP 135/69
[2019-09-22] MEDS: SENNA W/DOCUSATE (SENOKOT S) TABLET PO SCH ×2 (07:57→20:03)
[2019-09-22] MEDS: DOCUSATE SODIUM 100 MG (COLACE) CAP PO SCH ×2 (07:57→20:03)
[2019-09-22] MEDS: polyethylene glycoL POWDER 17 GM (MIRALAX) PACK PO SCH ×2 (07:57→20:03)
[2019-09-22] MEDS: ASPIRIN 81 MG CHEW (CHILDREN'S ASA) PO SCH (07:57)
[2019-09-22] MEDS: MELOXICAM 7.5 MG (MOBIC) TABLET PO SCH (07:58)
[2019-09-22] MEDS: CLOPIDOGREL 75 MG (PLAVIX) TABLET PO SCH (07:58)
[2019-09-22] MEDS: GABAPENTIN 100 MG (NEURONTIN) CAP PO SCH ×3 (07:58→20:03)
--- NOTE | 2019-09-22 09:00 | PM&R Progress Note ---
Subjective HPI/CC On Admission Date Seen by Provider: Sep 22, 2019 Time Seen by Provider: 09:00 Subjective/Events-last exam Could not get down to pretend like a fall at home to prepare for that just in case. Medical Alert will be recommended. Has a [facility] appointment this . May want to discharge on morning and he goes to his [facility] appointment and may not require going back on the unit. Will discuss disposition in team meeting. Checked meds and labs. Reviewed therapy notes. Conferred with RN. Review of Systems General: Fatigue Musculoskeletal: leg pain Objective Exam Vital Signs Vital Signs Date Time Temp Pulse Resp B/P (MAP) Pulse Ox O2 Delivery O2 Flow Rate FiO2 09/22/19 18:24 73 148/66 (93) 09/22/19 16:51 36.1 20 98 Room Air Capillary Refill : Less Than 3 SecondsLess Than 3 Seconds General Appearance: No Apparent Distress, WD/WN HEENT: PERRL/EOMI, Normal ENT Inspection, Pharynx Normal Neck: Full Range of Motion, Normal Inspection, Non Tender, Supple, Carotid Bru it Respiratory: Chest Non Tender, Lungs Clear, Normal Breath Sounds, No Accessory Muscle Use, No Respiratory Distress Cardiovascular: Regular Rate, Rhythm, No Edema, No Gallop, No JVD, No Murmur, Normal Peripheral Pulses Gastrointestinal: Normal Bowel Sounds, No Organomegaly, No Pulsatile Mass, Non Tender, Soft Back: Normal Inspection, No CVA Tenderness, No Vertebral Tenderness Extremity: Normal Capillary Refill, Normal Inspection, Normal Range of Motion, Non Tender, No Calf Tenderness, No Pedal Edema, Other (left BKA) Neurologic/Psychiatric: Alert, Oriented x3, No Motor/Sensory Deficits, Normal Mood/Affect, technical services coordinator II-XII Norm as Tested Skin: Normal Color, Warm/Dry Lymphatic: No Adenopathy Results/Procedures Lab Patient resulted labs reviewed. FIM Transfers Therapy Code Descriptions/Definitions Functional [place] Measure: 0=Not Assessed/NA 4=Minimal Assistance 1=Total Assistance 5=Supervision or Setup 2=Maximal Assistance 6=Modified [place] 3=Moderate Assistance 7=Complete IndependenceSCALE: Activities may be completed with or without assistive devices. 5-Iicwjtmcyl-ovziukf completes the activity by him/herself with no assistance from a helper. 5-Set-up or Clean-up Assistance-helper sets up or cleans up; patient completes activity. [place] assists only prior to or following the activity. 4-Supervision or Touching Assistance-helper provides verbal cues and/or touching/steadying and/or contact guard assistance as patient completes activity. Assistance may be provided throughout the activity or intermittently. 3-Partial/Moderate Assistance-helper does LESS THAN HALF the effort. [place] lifts, holds or supports trunk or limbs, but provides less than half the effort. 2-Substantial/Maximal Assistance-helper does MORE THAN HALF the effort. [place] lifts or holds trunk or limbs and provides more than half the effort. 5-Nmwdoucru-gepmme does ALL the effort. Patient does none of the effort to complete the activity. Or, the assistance of 2 or more helpers is required for the patient to complete the activity. If activity was not attempted, code reason: 7-Patient Refused. 9-Not Applicable-not attempted and the patient did not perform the activity before the current illness, exacerbation or injury. 10-Not Attempted due to Environmental Limitations-(lack of equipment, weather restraints, etc.). 88-Not Attempted due to Medical Conditions or Safety Concerns. Roll Left to Right (QC): 6 Sit to Lying (QC): 6 Sit to Stand (QC): 5 Chair/Rsd-em-Wynjt Xfer(QC): 5 Car Transfer (QC): 4 Gait Training Does the Patient Walk?: No and Walking Goal IS indicated Distance: 20 Walk 10 feet (QC): 4 Walk 50 ft with 2 Turns(QC): 88 Walk 150 ft (QC): 88 Walking 10ft/uneven surface-QC: 88 Gait Persons Needed: 1 Gait Assistive Device: FWW Wheelchair Training Does the Pt Use a Wheelchair?: Yes Distance: 150'x2 Wheel 50 ft with 2 turns (QC): 6 Wheel 150 ft (QC): 6 Type of Wheelchair: Manual Stair Training 1 Step (curb) (QC): 88 4 Steps (QC): 88 12 Steps (QC): 88 Balance Picking up an Object (QC): 88 ADL-Treatment Eating (QC): 6 (Pt reports feeding self without assist.) Oral Hygiene (QC): 6 Shower/Bathe Self (QC): 4 Upper Body Dressing (QC): 5 Lower Body Dressing (QC): 4 On/Off Footwear (QC): 5 Toileting Hygiene (QC): 6 Toilet Transfer (QC): 3 Assessment/Plan Assessment and Plan Assess & Plan/Chief Complaint Assessment: s/p left BKA DM HTN CAD PVD PATRICK on CPAP Plan: CPAP IRF protocol BM regimen CPAP High risk for falls (1) Left below-knee amputee (2) Diabetes mellitus (3) Hypertension (4) CAD (coronary artery disease) (5) PVD (peripheral vascular disease) (6) PATRICK on CPAP DAMION WHITFIELD DO Sep 22, 2019 09:00
--- NOTE | 2019-09-22 09:28 | NUR ---
PATIENT STATES THAT HE HAS A F/U APPOINTMENT WITH DR. SHIRA SYED (SURGEON) AT ON 09/24/19 AT 11:30 AM. PATIENT STATES THAT SON CAN TAKE HIM TO THE APPOINTMENT. DR. WHITFIELD AND FIELD TECHNICAL ASSISTANT, SCOTT, NOTIFIED.
--- NOTE | 2019-09-22 10:50 | Progress Note - Cardiology ---
Cardiology SOAP Progress Note Objective: I&O/Vital Signs 09/23/19 09/23/19 05:22 08:50 Temp 36.2 Pulse 71 Resp 16 B/P (MAP) 128/71 (90) Pulse Ox 98 O2 Delivery Room Air Room Air 09/23/19 00:00 Intake Total 1250 ml Output Total 900 ml Balance 350 ml Weight (Pounds): 245 Weight (Ounces): 0.0 Weight (Calculated Kilograms): 111.471754 Constitutional: AAO x 3, well-developed, well-nourished Respiratory: No accessory muscle use, No respiratory distress; chest expansion is symmetric, chest is bilaterally symmetric, lungs clear to auscultation Cardiovascular: regular rate-rhythm; No JVD; S1 and S2 Gastrointestional: No tender; soft, round, audible bowel sounds Extremities: other (L BKA - dressing in place and not removed) Neurologic/Psychiatric: grossly intact (moves extremities) Skin: No rash on exposed areas, No ulcerations on exposed areas Results/Procedures: Labs Laboratory Tests 09/22/19 15:40: Glucometer 208H 09/22/19 19:20: Glucometer 286H 09/23/19 05:10: Glucometer 137H 09/23/19 10:49: Glucometer 214H A/P: Assessment: 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 Souza at [facility] d/t osteomyelitis CAD. Acute inferolateral STEMI on 09/28/17, treated with primary PCI. Card cath on 09/28/17: The right coronary artery had 80% proximal stenosis to which successful stenting was carried out with an [employer] Xience 4.0 x 28 mm stent. The left anterior descending artery had diffuse disease, including subtotal occlusions in its distal portion, which were not amenable to intervention on account of a very small vessel caliber. The left circumflex artery had diffuse moderate to moderately severe disease and was of small caliber. LVEF 60%. Significantly elevated left ventricular end-diastolic pressure Echo on 09/29/17: difficult study, LVEF approx 60% DM II Chronic daily tobacco use, quit in December 2018 Hyperlipidemia Obesity with BMI approx 33 PAD: s/p multiple bilateral interventions at [facility] in the half 2018 S/p L great toe amputation at [facility] in February 2019. This was followed by multiple PAD interventions (details unavailable); currently post L BKA on 09-08-2019 Plan: * His cardiac status is clinically stable * Monitor labs from time to time * Continue current regimen CHANTEL BRENNAN Sep 22, 2019 10:50
--- NOTE | 2019-09-22 11:53 | Physical Therapy Daily Note ---
PT Daily Note-Current Subjective Pt laying Supine in bed upon arrival. Pt agrees to PT. Pt excited for anticipated possible d/C (09/24). Pain Location: No Pain Reported Mental Status Patient Orientation: Person, Place, Time, Situation Attachments: Other-See Comments (L knee brace) Transfers SCALE: Activities may be completed with or without assistive devices. 1-Wkxmqtrklz-jrqddih completes the activity by him/herself with no assistance from a helper. 5-Set-up or Clean-up Assistance-helper sets up or cleans up; patient completes activity. [place] assists only prior to or following the activity. 4-Supervision or Touching Assistance-helper provides verbal cues and/or touching/steadying and/or contact guard assistance as patient completes activity. Assistance may be provided throughout the activity or intermittently. 3-Partial/Moderate Assistance-helper does LESS THAN HALF the effort. [place] lifts, holds or supports trunk or limbs, but provides less than half the effort. 2-Substantial/Maximal Assistance-helper does MORE THAN HALF the effort. [place] lifts or holds trunk or limbs and provides more than half the effort. 5-Htmiigjsw-iahglh does ALL the effort. Patient does none of the effort to complete the activity. Or, the assistance of 2 or more helpers is required for the patient to complete the activity. If activity was not attempted, code reason: 7-Patient Refused. 9-Not Applicable-not attempted and the patient did not perform the activity bef ore the current illness, exacerbation or injury. 10-Not Attempted due to Environmental Limitations-(lack of equipment, weather r estraints, etc.). 88-Not Attempted due to Medical Conditions or Safety Concerns. Roll Left & Right (QC): 6 Sit to Lying (QC): 6 Lying to Sitting/Side of Bed(Q: 6 Sit to Stand (QC): 6 Chair/Yhb-ui-Zdpbl Xfer(QC): 6 Toilet Transfer (QC): 5 Weight Bearing Left Lower Extremity: Left Non Weight Bearing Wheelchair Training Does the Pt Use a Wheelchair?: Yes Wheel 50 ft with 2 turns (QC): 6 Wheel 150 ft (QC): 6 Type of Wheelchair: Manual Exercises Supine Ex: Ankle pumps, Quad Set, Glut sets, Heel Slides, Straight leg raise, Hip abd/add (on back & side lying) Supine Reps: 15 NuStep Minutes: 15 NuStep Workload: 6 Treatments Pt practices bed mobility. Pt completes transfers from bed to W/C, W/C to EOM, EOM to W/C & to/from toilet. Pt completes Supine EX as well NuStep for 15m at WL 6. Pt returns to room at end of Rx to rest Supine in bed. Pt has all needs met, call light in hand. Assessment Current Status: Good Progress Pt improving with strength and endurance so transfers are improving. PT Short Term Goals Short Term Goals Time Frame: Sep 21, 2019 Roll Left & Right: 6 Sit to lyin Lying to sitting on side of be: 6 Sit to stand: 4 Chair/nat-qf-qqnrf transfer: 4 Walk 10 feet: 4 Walk 50 feet with two turns: 4 PT Box Folding Machine Operator Goals Box Folding Machine Operator Goals PT Box Folding Machine Operator Goals Time Frame: Oct 05, 2019 Roll Left & Right (QC): 6 Sit to Lying (QC): 6 Lying-Sitting on Side/Bed(QC): 6 Sit to Stand (QC): 6 Chair/Mxf-gn-Rrmyn Xfer(QC): 6 Toilet Transfer (QC): 6 Car Transfer (QC): 6 Walk 10 feet (QC): 5 Walk 50ft with 2 Turns (QC): 4 Walking 10ft on Uneven Surface: 4 1 Step (curb) (QC): 4 4 Steps (QC): 4 Wheel 50 feet with 2 turns (QC: 6 Type: Manual Wheel 150 feet: 6 Type: Manual PT Plan Problem List Problem List: Activity Tolerance Treatment/Plan Treatment Plan: Continue Plan of Care Treatment Plan: Bed Mobility, Education, Functional Activity Dhaval, Functional Strength, Group Therapy, Gait, Safety, Therapeutic Exercise, Transfers Treatment Duration: Oct 05, 2019 Frequency: At least 5 of 7 days/Wk (IRF) Estimated Hrs Per Day: 1.5 hours per day Patient and/or Family Agrees t: Yes Safety Risks/Education Patient Education: Gait Training, Transfer Techniques, Correct Positioning, W/C Management, Safety Issues Teaching Recipient: Patient Teaching Methods: Discussion Response to Teaching: Verbalize Understanding Time/GCodes Time In: 945 Time Out: 1045 Total Billed Treatment Time: 60 Total Billed Treatment 1, FA x2 (25m), EX (20m) & WCH (15m) SABINE BOB AIRLINE HOSTESS Sep 22, 2019 11:53
--- NOTE | 2019-09-22 11:58 | Occupational Ther Daily Note ---
OT Current Status-Daily Note Subjective Pt in bed, agrees to therapy. No report of pain. ADL-Treatment Pt declined shower, but would like to clean up at sink. Supine to sit without assist. Don right shoe without assist. Pt transferred to w/c with supervision.Pt doffed shirt and washed upper body with set up while seated at sink. Grooming tasks completed with modified independence. Pt declined to complete LE ADLs initially, but at end of session pt changed pants with set up at bed level. Therapy Code Descriptions/Definitions Functional [place] Measure: 0=Not Assessed/NA 4=Minimal Assistance 1=Total Assistance 5=Supervision or Setup 2=Maximal Assistance 6=Modified [place] 3=Moderate Assistance 7=Complete IndependenceSCALE: Activities may be completed with or without assistive devices. 0-Qxfxizsjsg-zaurykr completes the activity by him/herself with no assistance from a helper. 5-Set-up or Clean-up Assistance-helper sets up or cleans up; patient completes activity. [place] assists only prior to or following the activity. 4-Supervision or Touching Assistance-helper provides verbal cues and/or touch ing/steadying and/or contact guard assistance as patient completes activity. Assistance may be provided throughout the activity or intermittently. 3-Partial/Moderate Assistance-helper does LESS THAN HALF the effort. [place] lifts, holds or supports trunk or limbs, but provides less than half the effort. 2-Substantial/Maximal Assistance-helper does MORE THAN HALF the effort. [place] lifts or holds trunk or limbs and provides more than half the effort. 2-Ifkqkzbbg-ucyklj does ALL the effort. Patient does none of the effort to complete the activity. Or, the assistance of 2 or more helpers is required for the patient to complete the activity. If activity was not attempted, code reason: 7-Patient Refused. 9-Not Applicable-not attempted and the patient did not perform the activity before the current illness, exacerbation or injury. 10-Not Attempted due to Environmental Limitations-(lack of equipment, weather restraints, etc.). 88-Not Attempted due to Medical Conditions or Safety Concerns. Oral Hygiene (QC): 6 Upper Body Dressing (QC): 5 Lower Body Dressing (QC): 5 (at bed level) Other Treatment Pt performed w/c mobility to therapy gym without assist. Arm bike [id number] to increase overall strength and activity tolerance needed for functional task completion. Pt performed task with moderate resistance and steady pace. No rest breaks needed. Pt performed bilateral UE exercises to increase strength for ADLs and transfers. Pt completed shoulder flexion, forward press, and biceps curls x20 reps with 5# dowel kevan. Rest breaks between exercises. Pt completed w/c push ups, 10 reps x2 sets to increase strength for functional transfers. Pt returned to room, resting in bed with needs met after session. OT Short Term Goals Short Term Goals Time Frame: Sep 22, 2019 Toileting hygiene: 5 Shower/bathe self: 4 Lower body dressin OT Bulb Packer Goals Bulb Packer Goals Time Frame: Oct 06, 2019 Eating (QC): 6 Oral Hygiene (QC): 6 Toileting Hygiene (QC): 6 Shower/Bathe Self (QC): 5 Upper Body Dressing (QC): 6 Lower Body Dressing (QC): 6 On/Off Footwear (QC): 6 Additional Goals: 1-Demonstrate ADL Tasks, 2-Verbalize Understanding, 3- ImproveStrength/Dhaval 1=Demonstrate adherence to instructed precautions during ADL tasks. 2=Patient will verbalize/demonstrate understanding of assistive devices/modifications for ADL. 3=Patient will improve strength/tolerance for activity to enable patient to perform ADL's. OT Education/Plan Discharge Recommendations Plan/Recommendations: Continue POC Treatment Plan/Plan of Care Patient would benefit from OT for education, treatment and training to promote independence in ADL's, mobility, safety and/or upper extremity function for ADL's. Plan of Care: ADL Retraining, Functional Mobility, UE Funct Exercise/Act Treatment Duration: Oct 06, 2019 Frequency: At least 5 of 7 days/Wk (IRF) Estimated Hrs Per Day: 1.5 hours per day Rehab Potential: Good Time/GCodes Start Time: 08:00 Stop Time: 09:00 Total Time Billed (hr/min): 60 Billed Treatment Time 1 visit, ADLx2(25minutes), EXx2(35minutes) DIMA DOOLEY OT Sep 22, 2019 11:58
--- NOTE | 2019-09-22 12:02 | NUR ---
"RD ASSESSMENT PMHx: DM; HLD; s/p left BKA PT INTERACTION: Pt was awake and pleasant during nutrition follow-up. Pt states he has been eating well since last assessment. Note avg PO intake of 96% x4d, per chart review. Pt states no issues with n/v/c/d since last assessment. Note last BM as 09/19 and pt currently on bowel regimen of colace BID; senna BID; and miralax BID, per chart review. Note pt has had elevated blood glucose levels of greater than 110 over the last 5 days, per chart review. ABNORMAL NUTRITION-RELATED LAB VALUES LOW: HIGH: BUN 20; glu 212 Est. kcal needs: 8893-7765 kcal | 20-25 kcal/kg Est. Pro needs: 83-104 g Pro | 0.8-1.0 g Pro/kg PES STATEMENT: Given pt's current PO intake, no nutrition diagnosis at this time (NO-1.1) INTERVENTION: Continue with current diet order of CHO 75g/m 1snack diet. Would recommend switching to CHO 60g/m 1snack diet, as pt has had elevated blood glucose levels. Will continue to follow and reassess as pt needs and status change. MONITOR/EVALUATE: PO Intake; Plan of Care; Hydration Status; Weight Status; Lab Values Areli Vuong, MS, RD, LD"
--- NOTE | 2019-09-22 12:47 | Progress Note - Cardiology ---
Cardiology SOAP Progress Note Subjective: No chest pain or palp or syncope or shortness of breath Gen malaise and weakness, slowly improving No n/v/d Objective: I&O/Vital Signs 09/22/19 09/22/19 09/22/19 05:52 07:55 09:12 Temp 36.4 Pulse 74 72 Resp 18 18 B/P (MAP) 152/61 (91) 135/69 (91) Pulse Ox 98 96 O2 Delivery NIV CPAP Room Air Room Air 09/22/19 00:00 Intake Total 975 ml Output Total 1325 ml Balance -350 ml Weight (Pounds): 245 Weight (Ounces): 0.0 Weight (Calculated Kilograms): 111.488176 Constitutional: AAO x 3, well-developed, well-nourished Respiratory: No accessory muscle use, No respiratory distress; chest expansion is symmetric, chest is bilaterally symmetric, lungs clear to auscultation Cardiovascular: regular rate-rhythm; No JVD; S1 and S2 Gastrointestional: No tender; soft, round, audible bowel sounds Extremities: other (L BKA - dressing in place and not removed) Neurologic/Psychiatric: grossly intact (moves extremities) Skin: No rash on exposed areas, No ulcerations on exposed areas Results/Procedures: Labs Laboratory Tests 09/21/19 15:58: Glucometer 118H 09/21/19 20:22: Glucometer 197H 09/22/19 05:37: Glucometer 142H 09/22/19 11:28: Glucometer 212H Laboratory Tests 09/21/19 07:06 A/P: Assessment: 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 Souza at [facility] d/t osteomyelitis CAD. Acute inferolateral STEMI on 09/28/17, treated with primary PCI. Card cath on 09/28/17: The right coronary artery had 80% proximal stenosis to which successful stenting was carried out with an [employer] Xience 4.0 x 28 mm stent. The left anterior descending artery had diffuse disease, including subtotal occlusions in its distal portion, which were not amenable to intervention on account of a very small vessel caliber. The left circumflex artery had diffuse moderate to moderately severe disease and was of small caliber. LVEF 60%. Significantly elevated left ventricular end-diastolic pressure Echo on 09/29/17: difficult study, LVEF approx 60% DM II Chronic daily tobacco use, quit in December 2018 Hyperlipidemia Obesity with BMI approx 33 PAD: s/p multiple bilateral interventions at [facility] in the half 2018 S/p L great toe amputation at [facility] in February 2019. This was followed by multiple PAD interventions (details unavailable); currently post L BKA on 09-08-2019 Plan: * Continue current regimen * Monitor labs from time to time JAX العراقي MD FACP FAC CCDS Sep 22, 2019 12:47
--- NOTE | 2019-09-22 12:47 | Occupational Ther Daily Note ---
OT Current Status-Daily Note Subjective Pt agreeable to therapy. ADL-Treatment Pt supine to sit without assist. Don right shoe independently. Pt transferred to w/c with supervision. Performed w/c mobility to shower room without assist. Reviewed safe tub/shower transfer. Pt states he has a tub transfer bench at home. Pt demonstrated ability to perform w/c <-> tub transfer with supervision using transfer bench. Therapy Code Descriptions/Definitions Functional [place] Measure: 0=Not Assessed/NA 4=Minimal Assistance 1=Total Assistance 5=Supervision or Setup 2=Maximal Assistance 6=Modified [place] 3=Moderate Assistance 7=Complete IndependenceSCALE: Activities may be completed with or without assistive devices. 0-Uqxnxwhqpk-pqflbyu completes the activity by him/herself with no assistance from a helper. 5-Set-up or Clean-up Assistance-helper sets up or cleans up; patient completes activity. [place] assists only prior to or following the activity. 4-Supervision or Touching Assistance-helper provides verbal cues and/or touching/steadying and/or contact guard assistance as patient completes activity. Assistance may be provided throughout the activity or intermittently. 3-Partial/Moderate Assistance-helper does LESS THAN HALF the effort. [place] lifts, holds or supports trunk or limbs, but provides less than half the effort. 2-Substantial/Maximal Assistance-helper does MORE THAN HALF the effort. [place] lifts or holds trunk or limbs and provides more than half the effort. 5-[place]-trlwlk does ALL the effort. Patient does none of the effort to complete the activity. Or, the assistance of 2 or more helpers is required for the patient to complete the activity. If activity was not attempted, code reason: 7-Patient Refused. 9-Not Applicable-not attempted and the patient did not perform the activity before the current illness, exacerbation or injury. 10-Not Attempted due to Environmental Limitations-(lack of equipment, weather restraints, etc.). 88-Not Attempted due to Medical Conditions or Safety Concerns. Other Treatment Pt performed w/c mobility to therapy gym without assist. Pt performed bilateral UE exercises to increase strength for ADLs and transfers. Pt completed shoulder flexion, abduction, bicep curls, and triceps extension exercises x15 reps with moderate resistance (red) theraband. Rest breaks between exercises. Pt returned to room, resting in bed with needs met after session. Education OT Patient Education: Safety issues Teaching Recipient: Patient Teaching Methods: Discussion Response to Teaching: Verbalize Understanding OT Short Term Goals Short Term Goals Time Frame: Sep 22, 2019 Toileting hygiene: 5 Shower/bathe self: 4 Lower body dressin OT Client Services Administrator Goals Custodial Goals Time Frame: Oct 06, 2019 Eating (QC): 6 Oral Hygiene (QC): 6 Toileting Hygiene (QC): 6 Shower/Bathe Self (QC): 5 Upper Body Dressing (QC): 6 Lower Body Dressing (QC): 6 On/Off Footwear (QC): 6 Additional Goals: 1-Demonstrate ADL Tasks, 2-Verbalize Understanding, 3- ImproveStrength/Dhaval 1=Demonstrate adherence to instructed precautions during ADL tasks. 2=Patient will verbalize/demonstrate understanding of assistive devices/modifications for ADL. 3=Patient will improve strength/tolerance for activity to enable patient to perform ADL's. OT Education/Plan Discharge Recommendations Plan/Recommendations: Continue POC Treatment Plan/Plan of Care Patient would benefit from OT for education, treatment and training to promote independence in ADL's, mobility, safety and/or upper extremity function for ADL's. Plan of Care: ADL Retraining, Functional Mobility, UE Funct Exercise/Act Treatment Duration: Oct 06, 2019 Frequency: At least 5 of 7 days/Wk (IRF) Estimated Hrs Per Day: 1.5 hours per day Rehab Potential: Good Time/GCodes Start Time: 11:00 Stop Time: 11:30 Total Time Billed (hr/min): 30 Billed Treatment Time 1 visit, ADL(15minutes), Ex(15minutes) DIMA DOOLEY OT Sep 22, 2019 12:47
--- NOTE | 2019-09-22 13:33 | Physical Therapy Daily Note ---
PT Daily Note-Current Subjective Pt laying Supine in bed upon arrival. Pt agrees to PT. Pt declines needing to use restroom. Pain Location: No Pain Reported Mental Status Patient Orientation: Person, Place, Time, Situation Attachments: Other-See Comments (L knee brace) Transfers SCALE: Activities may be completed with or without assistive devices. 7-Rixtalswqg-dsttitj completes the activity by him/herself with no assistance from a helper. 5-Set-up or Clean-up Assistance-helper sets up or cleans up; patient completes activity. [place] assists only prior to or following the activity. 4-Supervision or Touching Assistance-helper provides verbal cues and/or touching/steadying and/or contact guard assistance as patient completes activity. Assistance may be provided throughout the activity or intermittently. 3-Partial/Moderate Assistance-helper does LESS THAN HALF the effort. [place] lifts, holds or supports trunk or limbs, but provides less than half the effort. 2-Substantial/Maximal Assistance-helper does MORE THAN HALF the effort. [place] lifts or holds trunk or limbs and provides more than half the effort. 6-Czqsuvspp-njdcem does ALL the effort. Patient does none of the effort to complete the activity. Or, the assistance of 2 or more helpers is required for the patient to complete the activity. If activity was not attempted, code reason: 7-Patient Refused. 9-Not Applicable-not attempted and the patient did not perform the activity before the current illness, exacerbation or injury. 10-Not Attempted due to Environmental Limitations-(lack of equipment, weather restraints, etc.). 88-Not Attempted due to Medical Conditions or Safety Concerns. Weight Bearing Left Lower Extremity: Left Non Weight Bearing Treatments PAPER SPOOLER & pt discuss a few questions pt had including: timetable for getting prosetic, reviewed if AD/AE needed & if pt will D/C in time for appt on (09/24). PAPER SPOOLER also reviewed written HEP. Pt resting in bed at end of Rx. Pt has all needs met, call light in hand. Assessment Current Status: Good Progress Pt tolerates Rx well. PT Short Term Goals Short Term Goals Time Frame: Sep 21, 2019 Roll Left & Right: 6 Sit to lyin Lying to sitting on side of be: 6 Sit to stand: 4 Chair/wrp-yk-ifpzu transfer: 4 Walk 10 feet: 4 Walk 50 feet with two turns: 4 PT Link Trainer Teacher Goals Link Trainer Teacher Goals PT Link Trainer Teacher Goals Time Frame: Oct 05, 2019 Roll Left & Right (QC): 6 Sit to Lying (QC): 6 Lying-Sitting on Side/Bed(QC): 6 Sit to Stand (QC): 6 Chair/Ftc-pe-Clxkz Xfer(QC): 6 Toilet Transfer (QC): 6 Car Transfer (QC): 6 Walk 10 feet (QC): 5 Walk 50ft with 2 Turns (QC): 4 Walking 10ft on Uneven Surface: 4 1 Step (curb) (QC): 4 4 Steps (QC): 4 Wheel 50 feet with 2 turns (QC: 6 Type: Manual Wheel 150 feet: 6 Type: Manual PT Plan Problem List Problem List: Activity Tolerance Treatment/Plan Treatment Plan: Continue Plan of Care Treatment Plan: Bed Mobility, Education, Functional Activity Dhaavl, Functional Strength, Group Therapy, Gait, Safety, Therapeutic Exercise, Transfers Treatment Duration: Oct 05, 2019 Frequency: At least 5 of 7 days/Wk (IRF) Estimated Hrs Per Day: 1.5 hours per day Patient and/or Family Agrees t: Yes Safety Risks/Education Patient Education: Issued Written HEP, Correct Positioning, Disease Process, Safety Issues Teaching Recipient: Patient Teaching Methods: Discussion Response to Teaching: Verbalize Understanding Time/GCodes Time In: 1300 Time Out: 1330 Total Billed Treatment Time: 30 Total Billed Treatment 1, FA x2 (30m) SABINE BOB PAPER SPOOLER Sep 22, 2019 13:33
--- NOTE | 2019-09-22 14:55 | NUR ---
CM/SS CONCURRENT NOTE Met with patient to discuss [facility] followup appointment for , 09/24/[address] Massimo Souza MD at 1130. Patient has family to transport. His son is apparently an insurance defense attorney and will need to change his schedule according to departure/return timing. Patient inquired about whether he would be discharging from [facility] Saturday and return home or on a.m. just prior to appointment. Bag Bundler discussed his status and LOF with PT team members. We will review patient as planned in the weekly team conference tomorrow and make a final decision when all involved disciplines can participate. Patient was updated re same. DME: He will need bariatric FWW if he qualifies. He indicates what he is using here is more sturdy for his height and weight as opposed to the one he has at home, likely a standard FWW. He was informed that he may have OOP expense if Medicare only pays a baseline rate, patient may choose to decline the upgrade. Will explore. HHC: Patient has requested to resume his services with [facility]. Referral completed and confirmed they can meet his request for the same RN to provide his care. Bag Bundler to update when actual discharge date known. Continue to follow to finalize post hospital care resources/services.
[2019-09-22 16:51] VITALS: BP 169/93
[2019-09-22] MEDS: ENOXAPARIN 40 MG/0.4 ML (LOVENOX) SYR SC SCH (17:22)
[2019-09-22 18:24] VITALS: BP 148/66
[2019-09-23 05:22] VITALS: BP 128/71
[2019-09-23] MEDS: inSUlin ASPART (NovoLOG) 1 UNIT/0.01 ML (CHARGE PER UNIT) SC SCH ×4 (05:24→20:39)
[2019-09-23] MEDS: LINAGLIPTIN (TRADJENTA) 5 MG TABLET PO SCH (06:21)
[2019-09-23] MEDS: GLIMEPIRIDE 2 MG (AMARYL) TAB PO SCH ×2 (06:21→17:57)
[2019-09-23] MEDS: DOCUSATE SODIUM 100 MG (COLACE) CAP PO SCH ×2 (07:48→20:34)
[2019-09-23] MEDS: polyethylene glycoL POWDER 17 GM (MIRALAX) PACK PO SCH ×2 (07:48→20:34)
[2019-09-23] MEDS: SENNA W/DOCUSATE (SENOKOT S) TABLET PO SCH ×2 (07:48→20:34)
[2019-09-23] MEDS: CLOPIDOGREL 75 MG (PLAVIX) TABLET PO SCH (08:03)
[2019-09-23] MEDS: MELOXICAM 7.5 MG (MOBIC) TABLET PO SCH (08:03)
[2019-09-23] MEDS: GABAPENTIN 100 MG (NEURONTIN) CAP PO SCH ×3 (08:04→20:38)
[2019-09-23] MEDS: ASPIRIN 81 MG CHEW (CHILDREN'S ASA) PO SCH (08:04)
--- NOTE | 2019-09-23 09:03 | Physical Therapy Daily Note ---
PT Daily Note-Current Subjective Pt sitting in recliner upon arrival. Pt agrees to PT for QC scoring for anticipated D/C tomorrow. Pain Location: No Pain Reported Mental Status Patient Orientation: Person, Place, Time, Situation Attachments: Other-See Comments (L knee brace) Transfers SCALE: Activities may be completed with or without assistive devices. 1-Wkcexkeyeq-fhjtbtm completes the activity by him/herself with no assistance from a helper. 5-Set-up or Clean-up Assistance-helper sets up or cleans up; patient completes activity. [place] assists only prior to or following the activity. 4-Supervision or Touching Assistance-helper provides verbal cues and/or touching/steadying and/or contact guard assistance as patient completes activity. Assistance may be provided throughout the activity or intermittently. 3-Partial/Moderate Assistance-helper does LESS THAN HALF the effort. [place] lifts, holds or supports trunk or limbs, but provides less than half the effort. 2-Substantial/Maximal Assistance-helper does MORE THAN HALF the effort. [place] lifts or holds trunk or limbs and provides more than half the effort. 4-Ulhdtmvun-fxxqls does ALL the effort. Patient does none of the effort to complete the activity. Or, the assistance of 2 or more helpers is required for the patient to complete the activity. If activity was not attempted, code reason: 7-Patient Refused. 9-Not Applicable-not attempted and the patient did not perform the activity before the current illness, exacerbation or injury. 10-Not Attempted due to Environmental Limitations-(lack of equipment, weather restraints, etc.). 88-Not Attempted due to Medical Conditions or Safety Concerns. Roll Left & Right (QC): 6 Sit to Lying (QC): 6 Lying to Sitting/Side of Bed(Q: 6 Sit to Stand (QC): 6 Chair/Lgk-dz-Ymfkv Xfer(QC): 6 Toilet Transfer (QC): 6 Car Transfer (QC): 6 Weight Bearing Left Lower Extremity: Left Non Weight Bearing Gait Training Does the Patient Walk?: No and Walking Goal NOT indicated Pt reports pain in R LE while ambulating, safety concern at this time & is more comfortable with W/C. Wheelchair Training Does the Pt Use a Wheelchair?: Yes Wheel 50 ft with 2 turns (QC): 6 Wheel 150 ft (QC): 6 Type of Wheelchair: Manual Stair Training 1 Step (curb) (QC): 88 4 Steps (QC): 88 12 Steps (QC): 88 Pt reports pain in R LE when WB so until pt is ready for prosetic then these won't be attempted. Balance Picking up an Object (QC): 9 Special Test Comments Pt uses psychiatric social worker supervisor at home for safety. Exercises NuStep Minutes: 12 NuStep Workload: 6 Treatments Pt completes QC scoring items listed above. Pt propels extended distance with W/C, including on carpet like pt will have at home. Pt uses NuStep for 12m at WL 6 before returning to room to rest Supine in bed at end of Rx. Pt has all needs met, call light in hand. Assessment Current Status: Good Progress Pt has gained strength and endurance and transfers have improved. PT Short Term Goals Short Term Goals Time Frame: Sep 21, 2019 Roll Left & Right: 6 Sit to lyin Lying to sitting on side of be: 6 Sit to stand: 4 Chair/crk-zl-ijiey transfer: 4 Walk 10 feet: 4 Walk 50 feet with two turns: 4 PT Voice Over Artist Goals Halfway Goals PT Halfway Goals Time Frame: Oct 05, 2019 Roll Left & Right (QC): 6 Sit to Lying (QC): 6 Lying-Sitting on Side/Bed(QC): 6 Sit to Stand (QC): 6 Chair/Uxt-mp-Kdeak Xfer(QC): 6 Toilet Transfer (QC): 6 Car Transfer (QC): 6 Walk 10 feet (QC): 5 Walk 50ft with 2 Turns (QC): 4 Walking 10ft on Uneven Surface: 4 1 Step (curb) (QC): 4 4 Steps (QC): 4 Wheel 50 feet with 2 turns (QC: 6 Type: Manual Wheel 150 feet: 6 Type: Manual PT Plan Problem List Problem List: Activity Tolerance Treatment/Plan Treatment Plan: Continue Plan of Care Treatment Plan: Bed Mobility, Education, Functional Activity Dhaval, Functional Strength, Group Therapy, Gait, Safety, Therapeutic Exercise, Transfers Treatment Duration: Oct 05, 2019 Frequency: At least 5 of 7 days/Wk (IRF) Estimated Hrs Per Day: 1.5 hours per day Patient and/or Family Agrees t: Yes Safety Risks/Education Patient Education: Transfer Techniques, Correct Positioning, W/C Management, Safety Issues Teaching Recipient: Patient Teaching Methods: Discussion Response to Teaching: Verbalize Understanding Time/GCodes Time In: 800 Time Out: 900 Total Billed Treatment Time: 60 Total Billed Treatment 1, [facility] x2 (30m), FA (15m) & EX (15m) SABINE BOB STEAM DISTRIBUTION SUPERVISOR Sep 23, 2019 09:03
--- NOTE | 2019-09-23 09:36 | PM&R Progress Note ---
Subjective HPI/CC On Admission Date Seen by Provider: Sep 23, 2019 Time Seen by Provider: 09:30 Subjective/Events-last exam Pt just got out of the shower Going to tomorrow Contemplating discharging tomorrow morning so he can go to and go home from there Denies any significant new issues Checked meds and labs. Reviewed therapy notes. Conferred with RN. Review of Systems General: Fatigue Musculoskeletal: leg pain Objective Exam Vital Signs Vital Signs Date Time Temp Pulse Resp B/P (MAP) Pulse Ox O2 Delivery O2 Flow Rate FiO2 09/23/19 18:13 36.4 69 20 158/73 (101) 98 Room Air Capillary Refill : Less Than 3 SecondsLess Than 3 Seconds General Appearance: No Apparent Distress, WD/WN HEENT: PERRL/EOMI, Normal ENT Inspection, Pharynx Normal Neck: Full Range of Motion, Normal Inspection, Non Tender, Supple, Carotid Bruit Respiratory: Chest Non Tender, Lungs Clear, Normal Breath Sounds, No Accessory Muscle Use, No Respiratory Distress Cardiovascular: Regular Rate, Rhythm, No Edema, No Gallop, No JVD, No Murmur, Normal Peripheral Pulses Gastrointestinal: Normal Bowel Sounds, No Organomegaly, No Pulsatile Mass, Non Tender, Soft Back: Normal Inspection, No CVA Tenderness, No Vertebral Tenderness Extremity: Normal Capillary Refill, Normal Inspection, Normal Range of Motion, Non Tender, No Calf Tenderness, No Pedal Edema, Other (left BKA) Neurologic/Psychiatric: Alert, Oriented x3, No Motor/Sensory Deficits, Normal Mood/Affect, infant teacher II-XII Norm as Tested Skin: Normal Color, Warm/Dry Lymphatic: No Adenopathy Results/Procedures Lab Patient resulted labs reviewed. FIM Transfers Therapy Code Descriptions/Definitions Functional [place] Measure: 0=Not Assessed/NA 4=Minimal Assistance 1=Total Assistance 5=Supervision or Setup 2=Maximal Assistance 6=Modified [place] 3=Moderate Assistance 7=Complete IndependenceSCALE: Activities may be completed with or without assistive devices. 7-Iqfekxpulw-yxuvrle completes the activity by him/herself with no assistance from a helper. 5-Set-up or Clean-up Assistance-helper sets up or cleans up; patient completes activity. [place] assists only prior to or following the activity. 4-Supervision or Touching Assistance-helper provides verbal cues and/or touching/steadying and/or contact guard assistance as patient completes activity. Assistance may be provided throughout the activity or intermittently. 3-Partial/Moderate Assistance-helper does LESS THAN HALF the effort. [place] lifts, holds or supports trunk or limbs, but provides less than half the effort. 2-Substantial/Maximal Assistance-helper does MORE THAN HALF the effort. [place] lifts or holds trunk or limbs and provides more than half the effort. 1-Omwmvuboq-wwhoft does ALL the effort. Patient does none of the effort to complete the activity. Or, the assistance of 2 or more helpers is required for the patient to complete the activity. If activity was not attempted, code reason: 7-Patient Refused. 9-Not Applicable-not attempted and the patient did not perform the activity before the current illness, exacerbation or injury. 10-Not Attempted due to Environmental Limitations-(lack of equipment, weather restraints, etc.). 88-Not Attempted due to Medical Conditions or Safety Concerns. Roll Left to Right (QC): 6 Sit to Lying (QC): 6 Sit to Stand (QC): 6 Chair/[place]-Ewlez Xfer(QC): 6 Car Transfer (QC): 6 Gait Training Does the Patient Walk?: No and Walking Goal NOT indicated Distance: 20 Walk 10 feet (QC): 4 Walk 50 ft with 2 Turns(QC): 88 Walk 150 ft (QC): 88 Walking 10ft/uneven surface-QC: 88 Gait Persons Needed: 1 Gait Assistive Device: FWW Wheelchair Training Does the Pt Use a Wheelchair?: Yes Distance: 150'x2 Wheel 50 ft with 2 turns (QC): 6 Wheel 150 ft (QC): 6 Type of Wheelchair: Manual Stair Training 1 Step (curb) (QC): 88 4 Steps (QC): 88 12 Steps (QC): 88 Balance Picking up an Object (QC): 9 ADL-Treatment Eating (QC): 6 (Pt reports feeding self without assist.) Oral Hygiene (QC): 6 Shower/Bathe Self (QC): 4 Upper Body Dressing (QC): 5 Lower Body Dressing (QC): 5 (at bed level) On/Off Footwear (QC): 5 Toileting Hygiene (QC): 6 Toilet Transfer (QC): 3 Assessment/Plan Assessment and Plan Assess & Plan/Chief Complaint Assessment: s/p left BKA DM HTN CAD PVD PATRICK on CPAP Plan: CPAP IRF protocol BM regimen CPAP High risk for falls DC tomorrow then go to [facility]? (1) Left below-knee amputee (2) Diabetes mellitus (3) Hypertension (4) CAD (coronary artery disease) (5) PVD (peripheral vascular disease) (6) PATRICK on CPAP DAMION WHITFIELD DO Sep 23, 2019 09:36
--- NOTE | 2019-09-23 10:25 | Occupational Ther Daily Note ---
OT Current Status-Daily Note Subjective Pt resting in bed, agrees to therapy. Pt has no c/o pain ADL-Treatment Supine to sit without assist. Pt donned right shoe independently. Transfer to w/c without assist. Independent for w/c mobility to restroom. Pt transferred w/c <-> shower bench with supervision using grab bars for safety. [place] clothing without assist. Used dressing stick to doff right sock and shoe. Seated bathing completed with left LE covered to prevent getting wet. Pt able to wash/dry all areas after set up. Don pullover shirt without assist. Pt completed lower body dressing while in bed with set up. Don right sock and shoe without assist. Pt states he already completed oral care and other grooming tasks this morning without assist while seated at sink. Pt demonstrated ability to transfer w/c<-> toilet using grab bar for safety. Declined need to toilet at this time. Therapy Code Descriptions/Definitions Functional [place] Measure: 0=Not Assessed/NA 4=Minimal Assistance 1=Total Assistance 5=Supervision or Setup 2=Maximal Assistance 6=Modified [place] 3=Moderate Assistance 7=Complete IndependenceSCALE: Activities may be completed with or without assistive devices. 1-Ivoadgqmxm-nfgvaeo completes the activity by him/herself with no assistance from a helper. 5-Set-up or Clean-up Assistance-helper sets up or cleans up; patient completes activity. [place] assists only prior to or following the activity. 4-Supervision or Touching Assistance-helper provides verbal cues and/or touching/steadying and/or contact guard assistance as patient completes activity. Assistance may be provided throughout the activity or intermittently. 3-Partial/Moderate Assistance-helper does LESS THAN HALF the effort. [place] lifts, holds or supports trunk or limbs, but provides less than half the effort. 2-Substantial/Maximal Assistance-helper does MORE THAN HALF the effort. [place] lifts or holds trunk or limbs and provides more than half the effort. 2-Qpwfopgiq-bppgky does ALL the effort. Patient does none of the effort to complete the activity. Or, the assistance of 2 or more helpers is required for the patient to complete the activity. If activity was not attempted, code reason: 7-Patient Refused. 9-Not Applicable-not attempted and the patient did not perform the activity before the current illness, exacerbation or injury. 10-Not Attempted due to Environmental Limitations-(lack of equipment, weather restraints, etc.). 88-Not Attempted due to Medical Conditions or Safety Concerns. Eating (QC): 6 (per report) Oral Hygiene (QC): 6 (per pt report) Shower/Bathe Self (QC): 5 Upper Body Dressing (QC): 6 Lower Body Dressing (QC): 5 On/Off Footwear: 6 Toileting Hygiene (QC): 7 (pt declined need to toilet at this time.) Toilet Transfer (QC): 5 Other Treatment Pt performed w/c mobility to therapy gym without assist. Pt performed bilateral UE exercises to increase strength needed for ADLs and transfers. Pt performed shoulder flexion, abduction, biceps curls and triceps extension exercises x15 reps with 3# weight. Rest breaks between exercises. Pt returned to room, resting in bed with needs met after session. OT Short Term Goals Short Term Goals Time Frame: Sep 22, 2019 Toileting hygiene: 5 Shower/bathe self: 4 Lower body dressin OT Detention Goals Branch Administrator Goals Time Frame: Oct 06, 2019 Eating (QC): 6 Oral Hygiene (QC): 6 Toileting Hygiene (QC): 6 Shower/Bathe Self (QC): 5 Upper Body Dressing (QC): 6 Lower Body Dressing (QC): 6 On/Off Footwear (QC): 6 Additional Goals: 1-Demonstrate ADL Tasks, 2-Verbalize Understanding, 3- ImproveStrength/Dhaval 1=Demonstrate adherence to instructed precautions during ADL tasks. 2=Patient will verbalize/demonstrate understanding of assistive devices/modifications for ADL. 3=Patient will improve strength/tolerance for activity to enable patient to perform ADL's. OT Education/Plan Discharge Recommendations Plan/Recommendations: Continue POC Treatment Plan/Plan of Care Patient would benefit from OT for education, treatment and training to promote independence in ADL's, mobility, safety and/or upper extremity function for ADL's. Plan of Care: ADL Retraining, Functional Mobility, UE Funct Exercise/Act Treatment Duration: Oct 06, 2019 Frequency: At least 5 of 7 days/Wk (IRF) Estimated Hrs Per Day: 1.5 hours per day Rehab Potential: Good Time/GCodes Start Time: 09:00 Stop Time: 10:00 Total Time Billed (hr/min): 60 Billed Treatment Time 1 visit, ADLx3(45minutes), EX(15minutes) DIMA DOOLEY OT Sep 23, 2019 10:25
--- NOTE | 2019-09-23 14:30 | NUR ---
provided prayer and Communion.
--- NOTE | 2019-09-23 14:53 | Therapy Group Daily Note ---
Therapy Daily Group Note Patient Education Topic Home Safety Exercises LE Seated Exercise, UE Exercise Session Ratio (pt:therapist): 3:1 Goal of Session: Home Safety Strategies, Memory Strategies, UE/LE Strengthing, Safety with Transfers Goal Met for this Session: Yes Pt Benefit of Group: Contributions to Others, F/U Use of Strategies @Home, Increased Functional Safety, Increased Functional Strength, Improved Cognition, Recognition of Peers, Socialization Other/Notes Pt propelled W/C to PT/OT Group in Therapy Gym. Group consisted of Introductions (Name, Where are you from & who taught you to drive), Socialization, Seated UE/LE Exercises as well as Home Safety Program. Pt introduced self appropriately and actively listened to peers. Pt was able to complete UE dowel kevan exercises and LE Seated Exercise. Pt acknowledged home safety strategies and personal one pt could do at home. Pt returns to room to rest in bed at end of Group with all needs met, call light in hand. Start Time: 13:00 Stop Time: 14:10 Total Billed Treatment Time: 70 Total Billed Treatment 1, GRP (70m) SABINE BOB RISK CONTROL DIRECTOR Sep 23, 2019 14:53
[2019-09-23] MEDS: ENOXAPARIN 40 MG/0.4 ML (LOVENOX) SYR SC SCH (17:57)
[2019-09-23 18:13] VITALS: BP 158/73
--- NOTE | 2019-09-23 19:12 | NUR ---
bedside report received from ARTIS RAZA, assume care of pt
[2019-09-23] MEDS ORDERED: GABA-486 PO (19:38)
[2019-09-23] MEDS ORDERED: MELO7.5T46 PO (19:38)
[2019-09-23] MEDS ORDERED: ASPI-999 PO (19:38)
--- NOTE | 2019-09-23 19:39 | D/C HH Face to Face Order ---
D/C Face to Face Orders Reconcile Patient Problems Problems Reviewed?: Yes Instructions for Patient Via [facility] [place], Patient Instructions/FollowUp: Dr Reaves in 1 week Physician to follow Patient: Jelly Discharge Diet for Home: ADA Diet, Cardiac Diet Patient Problems: s/p left BKA Goals for Patient: Ashley Patient Data-Allergies,Ht & Wt Patient Allergies: Coded Allergies: iodine (Verified Allergy, Unknown, 09/28/17) Height (Feet): 6 Height (Inches): 0.00 Weight (Pounds): 245 Weight (Ounces): 0.0 Home Health Need/Face to Face Date of Face to Face: Sep 23, 2019 Clinical Findings: Instability, Muscle weakness, Unsteady gait, Non-healing wound I have seen Pt fbxq-tk-nuty: Yes Discharged To: Home Diagnosis/Conditions: Left BKA Patient is Homebound due to: [place] fall risk due to instabilty, Muscle weakness, Pain w/ambulation Homebound Status Due to the above stated illness, injury or surgical procedure (medical condition or diagnosis) and associated clinical findings, the patient is homebound because of his/her inability to leave home except with aid of a supportive device and/or person AND leaving the home requires a considerable and taxing effort or is medically contraindicated. Pt req the following assistanc: Wheelchair Home Health Nursing Orders Home Health Services Order: Nursing Services, Soap Mixer-Evaluate & Treat, Physical Therapy-Evaluate & Treat Certify Stmt I certify that this patient is under my care and that I, a nurse practitioner or a physician; a assistant basketball coach working with me, had a face to face encounter that - meets the physician face to face encounter requirements with this patient as dated. DAMION WHITFIELD DO Sep 23, 2019 19:39
--- NOTE | 2019-09-23 20:39 | NUR ---
pt refused Colace, miralax & Senmitchell, fsbs 205 NovoLog 6 units given
[2019-09-24 05:48] VITALS: BP 129/68
[2019-09-24] MEDS: inSUlin ASPART (NovoLOG) 1 UNIT/0.01 ML (CHARGE PER UNIT) SC SCH (06:00)
[2019-09-24] MEDS: LINAGLIPTIN (TRADJENTA) 5 MG TABLET PO SCH (06:28)
[2019-09-24] MEDS: GLIMEPIRIDE 2 MG (AMARYL) TAB PO SCH (06:28)
--- NOTE | 2019-09-24 08:00 | NUR ---
CHEERFUL. DENIES PAIN. PIVOTING WELL AND FEELS READY FOR DISCHARGE.
[2019-09-24] MEDS: CLOPIDOGREL 75 MG (PLAVIX) TABLET PO SCH (08:14)
[2019-09-24] MEDS: MELOXICAM 7.5 MG (MOBIC) TABLET PO SCH (08:14)
[2019-09-24] MEDS: ASPIRIN 81 MG CHEW (CHILDREN'S ASA) PO SCH (08:14)
[2019-09-24] MEDS: DOCUSATE SODIUM 100 MG (COLACE) CAP PO SCH (08:15)
[2019-09-24] MEDS: polyethylene glycoL POWDER 17 GM (MIRALAX) PACK PO SCH (08:16)
[2019-09-24] MEDS: SENNA W/DOCUSATE (SENOKOT S) TABLET PO SCH (08:16)
[2019-09-24] MEDS: GABAPENTIN 100 MG (NEURONTIN) CAP PO SCH (08:19)
--- NOTE | 2019-09-24 09:07 | Discharge Summary ---
Diagnosis/Chief Complaint Date of Admission Sep 14, 2019 at 17:30 Date of Discharge Discharge Date: Sep 24, 2019 Discharge Diagnosis Assessment: s/p left BKA DM HTN CAD PVD PATRICK on CPAP Plan: CPAP IRF protocol BM regimen CPAP High risk for falls DC today then go to (1) Left below-knee amputee (2) Diabetes mellitus (3) Hypertension (4) CAD (coronary artery disease) (5) PVD (peripheral vascular disease) (6) PATRICK on CPAP Discharge Summary Discharge Physical Examination Allergies: Coded Allergies: iodine (Verified Allergy, Unknown, 09/28/17) Vitals & I&Os Vital Signs Date Time Temp Pulse Resp B/P (MAP) Pulse Ox O2 Delivery O2 Flow Rate FiO2 09/24/19 10:15 36.4 97 18 154/70 96 Room Air General Appearance: Alert, Oriented X3, Cooperative Respiratory: Clear to Auscultation Cardiovascular: Regular Rate Neuro: Normal Speech, Strength at 5/5 X4 Ext Hospital Course Was the Problem List Reviewed?: Yes Hospital course: Pt had an uneventful but very productive hospital course for eleven days while in rehab. He was able to participate in all therapies PT and OT, he did not have a great deal of pain, that was managed with Mobic and Gabapentin, he had an appointment up at , dressing was not changed per their recommendation until he was seen up at and all meds were reviewed, sent n Mobic and Gabapentin to the pharmacy and resumed all of his home medication per Dr. Callejas. Pt will have close follow up with Dr. Reaves, home health orders placed and wheelchair order placed. Labs (last 24 hrs) Laboratory Tests 09/14/19 17:58: Glucometer 239H 09/14/19 20:05: Glucometer 304H 09/14/19 22:04: Glucometer 242H 09/15/19 05:40: White Blood Count 4.0L, Red Blood Count 4.51, Hemoglobin 12.2L, Hematocrit 37L, Mean Corpuscular Volume 82, Mean Corpuscular Hemoglobin 27, Mean Corpuscular Hemoglobin Concent 33, Red Cell Distribution Width 14.9H, Platelet Count 331, Mean Platelet Volume 10.4, Neutrophils (%) (Auto) 38L, Lymphocytes (%) (Auto) 49H, Monocytes (%) (Auto) 12, Eosinophils (%) (Auto) 1, Basophils (%) (Auto) 0, Neutrophils # (Auto) 1.5L, Lymphocytes # (Auto) 2.0, Monocytes # (Auto) 0.5, Eosinophils # (Auto) 0.0, Basophils # (Auto) 0.0, Sodium Level 137, Potassium Level 4.3, Chloride Level 103, Carbon Dioxide Level 25, Anion Gap 9, Blood Urea Nitrogen 15, Creatinine 0.80, Estimat Glomerular Filtration Rate > 60, BUN /Creatinine Ratio 19, Glucose Level 136H, Calcium Level 9.0, Corrected Calcium 9.6, Total Bilirubin 0.5, Aspartate Amino Transf (AST/SGOT) 21, Alanine Aminotransferase (ALT/SGPT) 28, Alkaline Phosphatase 48, Total Protein 6.7, Albumin 3.2 09/15/19 05:48: Glucometer 140H 09/15/19 10:53: Glucometer 224H 09/15/19 15:42: Glucometer 167H 09/15/19 20:52: Glucometer 276H 09/16/19 05:28: Glucometer 134H 09/16/19 12:17: Glucometer 183H 09/16/19 15:48: Glucometer 189H 09/16/19 20:42: Glucometer 221H 09/17/19 05:23: Glucometer 149H 09/17/19 11:00: Glucometer 246H 09/17/19 15:54: Glucometer 213H 09/17/19 20:35: Glucometer 207H 09/18/19 06:34: Glucometer 183H 09/18/19 11:34: Glucometer 220H 09/18/19 16:14: Glucometer 196H 09/18/19 20:25: Glucometer 178H 09/19/19 05:13: Glucometer 194H 09/19/19 10:13: Glucometer 223H 09/19/19 15:42: Glucometer 205H 09/19/19 20:11: Glucometer 248H 09/20/19 05:57: Glucometer 153H 09/20/19 10:50: Glucometer 232H 09/20/19 15:54: Glucometer 214H 09/20/19 21:34: Glucometer 239H 09/21/19 06:35: Glucometer 142H 09/21/19 07:06: White Blood Count 5.4, Red Blood Count 4.74, Hemoglobin 12.8L, Hematocrit 39L, Mean Corpuscular Volume 82, Mean Corpuscular Hemoglobin 27, Mean Corpuscular Hemoglobin Concent 33, Red Cell Distribution Width 14.8H, Platelet Count 317, Mean Platelet Volume 10.3, Neutrophils (%) (Auto) 51, Lymphocytes (%) (Auto) 39, Monocytes (%) (Auto) 10, Eosinophils (%) (Auto) 1, Basophils (%) (Auto) 0, Neutrophils # (Auto) 2.8, Lymphocytes # (Auto) 2.1, Monocytes # (Auto) 0.5, Eosinophils # (Auto) 0.0, Basophils # (Auto) 0.0, Sodium Level 137, Potassium Level 4.8, Chloride Level 103, Carbon Dioxide Level 25, Anion Gap 9, Blood Urea Nitrogen 20H, Creatinine 0.87, Estimat Glomerular Filtration Rate > 60, BUN/Creatinine Ratio 23, Glucose Level 212H, Calcium Level 9.1, Corrected Calcium 9.7, Total Bilirubin 0.4, Aspartate Amino Transf (AST/SGOT) 16, Alanine Aminotransferase (ALT/SGPT) 31, Alkaline Phosphatase 54, Total Protein 6.8, Albumin 3.3 09/21/19 11:37: Glucometer 239H 09/21/19 15:58: Glucometer 118H 09/21/19 20:22: Glucometer 197H 09/22/19 05:37: Glucometer 142H 09/22/19 11:28: Glucometer 212H 09/22/19 15:40: Glucometer 208H 09/22/19 19:20: Glucometer 286H 09/23/19 05:10: Glucometer 137H 09/23/19 10:49: Glucometer 214H 09/23/19 15:56: Glucometer 133H 09/23/19 20:33: Glucometer 205H 09/24/19 05:21: Glucometer 126H Pending Labs Laboratory Tests 09/14/19 17:58: Glucometer 239 09/14/19 20:05: Glucometer 304 09/14/19 22:04: Glucometer 242 09/15/19 05:40: White Blood Count 4.0, Red Blood Count 4.51, Hemoglobin 12.2, Hematocrit 37, Mean Corpuscular Volume 82, Mean Corpuscular Hemoglobin 27, Mean Corpuscular Hemoglobin Concent 33, Red Cell Distribution Width 14.9, Platelet Count 331, Mean Platelet Volume 10.4, Neutrophils (%) (Auto) 38, Lymphocytes (%) (Auto) 49, Monocytes (%) (Auto) 12, Eosinophils (%) (Auto) 1, Basophils (%) (Auto) 0, Neutrophils # (Auto) 1.5, Lymphocytes # (Auto) 2.0, Monocytes # (Auto) 0.5, Eosinophils # (Auto) 0.0, Basophils # (Auto) 0.0, Sodium Level 137, Potassium Level 4.3, Chloride Level 103, Carbon Dioxide Level 25, Anion Gap 9, Blood Urea Nitrogen 15, Creatinine 0.80, Estimat Glomerular Filtration Rate > 60, BUN/Creatinine Ratio 19, Glucose Level 136, Calcium Level 9.0, Corrected Calcium 9.6, Total Bilirubin 0.5, Aspartate Amino Transf (AST/SGOT) 21, Alanine Aminotransferase (ALT/SGPT) 28, Alkaline Phosphatase 48, Total Protein 6.7, Albumin 3.2 09/15/19 05:48: Glucometer 140 09/15/19 10:53: Glucometer 224 09/15/19 15:42: Glucometer 167 09/15/19 20:52: Glucometer 276 09/16/19 05:28: Glucometer 134 09/16/19 12:17: Glucometer 183 09/16/19 15:48: Glucometer 189 09/16/19 20:42: Glucometer 221 09/17/19 05:23: Glucometer 149 09/17/19 11:00: Glucometer 246 09/17/19 15:54: Glucometer 213 09/17/19 20:35: Glucometer 207 09/18/19 06:34: Glucometer 183 09/18/19 11:34: Glucometer 220 09/18/19 16:14: Glucometer 196 09/18/19 20:25: Glucometer 178 09/19/19 05:13: Glucometer 194 09/19/19 10:13: Glucometer 223 09/19/19 15:42: Glucometer 205 09/19/19 20:11: Glucometer 248 09/20/19 05:57: Glucometer 153 09/20/19 10:50: Glucometer 232 09/20/19 15:54: Glucometer 214 09/20/19 21:34: Glucometer 239 09/21/19 06:35: Glucometer 142 09/21/19 07:06: White Blood Count 5.4, Red Blood Count 4.74, Hemoglobin 12.8, Hematocrit 39, Mean Corpuscular Volume 82, Mean Corpuscular Hemoglobin 27, Mean Corpuscular Hemoglobin Concent 33, Red Cell Distribution Width 14.8, Platelet Count 317, Mean Platelet Volume 10.3, Neutrophils (%) (Auto) 51, Lymphocytes (%) (Auto) 39, Monocytes (%) (Auto) 10, Eosinophils (%) (Auto) 1, Basophils (%) (Auto) 0, Neutrophils # (Auto) 2.8, Lymphocytes # (Auto) 2.1, Monocytes # (Auto) 0.5, Eosinophils # (Auto) 0.0, Basophils # (Auto) 0.0, Sodium Level 137, Potassium Level 4.8, Chloride Level 103, Carbon Dioxide Level 25, Anion Gap 9, Blood Urea Nitrogen 20, Creatinine 0.87, Estimat Glomerular Filtration Rate > 60, BUN/Creatinine Ratio 23, Glucose Level 212, Calcium Level 9.1, Corrected Calcium 9.7, Total Bilirubin 0.4, Aspartate Amino Transf (AST/SGOT) 16, Alanine Aminotransferase (ALT/SGPT) 31, Alkaline Phosphatase 54, Total Protein 6.8, Albumin 3.3 09/21/19 11:37: Glucometer 239 09/21/19 15:58: Glucometer 118 09/21/19 20:22: Glucometer 197 09/22/19 05:37: Glucometer 142 09/22/19 11:28: Glucometer 212 09/22/19 15:40: Glucometer 208 09/22/19 19:20: Glucometer 286 09/23/19 05:10: Glucometer 137 09/23/19 10:49: Glucometer 214 09/23/19 15:56: Glucometer 133 09/23/19 20:33: Glucometer 205 09/24/19 05:21: Glucometer 126 Discharge Home Medications: Active Scripts Active Gabapentin 100 Mg Capsule 200 Mg PO TID Meloxicam 7.5 Mg Tablet 7.5 Mg PO DAILY@0800 Aspirin 81 Mg Tab.chew 81 Mg PO DAILY Reported Januvia (Sitagliptin Phosphate) 100 Mg Tablet 100 Mg PO DAILY Metoprolol Succinate 25 Mg Tab.er.24h 25 Mg PO DAILY Plavix (Clopidogrel Bisulfate) 75 Mg Tablet 75 Mg PO DAILY Atorvastatin Calcium 20 Mg Tablet 20 Mg PO DAILY Acetaminophen 500 Mg Tablet 1,000 Mg PO Q6H PRN TAKES 2 (500 MG) TABLETS Glimepiride 2 Mg Tablet 2 Mg PO BID Levemir Flextouch (Insulin Detemir) 100 Unit/1 Ml Insuln.pen 36 Units SQ DAILY Instructions to patient/family Please see electronic discharge instructions given to patient. Diagnosis/Problems Diagnosis/Problems (1) Left below-knee amputee (2) Diabetes mellitus (3) Hypertension (4) CAD (coronary artery disease) (5) PVD (peripheral vascular disease) (6) PATRICK on CPAP Clinical Quality Measures DVT/VTE Risk/Contraindication: Risk Factor Score Per Nursin RFS Level Per Nursing on Admit: 4+=Very High DAMION WHITFIELD DO Sep 24, 2019 09:07
[2019-09-24 10:15] VITALS: BP 154/70
--- NOTE | 2019-09-24 11:24 | NUR ---
CM/SS WEEKLY TEAM CONFERENCE SUMMARY and DISCHARGE Visited with patient yesterday and reviewed Summary. All plans were finalized for patient's discharge today from ARU just prior to his trip to [facility] for followup with surgeon. [facility]: Medicare Compare had been provided to patient and he elected to continue with his established/preferred agency, [facility] ([facility]). Referral completed, agency confirmed they will begin services tomorrow for RN/PT/OT. Patient did not require any new DME at this time. He will be exploring prosthesis providers with his [facility] team today, he has made it clear he wishes to connect with resources closer to home, likely [place].
--- NOTE | 2019-09-24 11:27 | Therapy Team Discharge Summary ---
Therapy Discharge Summary Discharge Recommendations Date of Discharge Sep 24, 2019 at 09:10 Physical Therapy This patient was transferred to this unit post left BKA due to a non healing ulcer. Prior to the surgery, he was living at home with his indep with all mobility. Upon admission to this unit, he required SB-CGA with bed mobility and transfers, hopped 10 ft with FWW with CGA and was SBA with wheelchair mobility. Treatment has focused on functional strength and mobility with education and training on safety and residual limb care and management. At discharge he is mod indep with bed mobiltiy, transfers and wc mobility. Gait and stair training deferred due to pt preferring use of wc until he obtains a prosthesis. Pt has met all goals to a satisfactory level and plans to discharge home with his with followup medical care and home PT recommended. DC PT. Occupational Therapy Decreased Activ Tolerance, Decreased UE Strength, Impaired Funct Balance, Impaired Self-Care Skills PT Handyman Goals Longterm Goals PT Longterm Goals Time Frame: Oct 05, 2019 Roll Left to Right (QC): 6 (met) Sit to Lying (QC): 6 (met) Lying-Sitting on Side/Bed(QC): 6 (met) Sit to Stand (QC): 6 (met) Chair/Qhc-ve-Crwwx Xfer(QC): 6 (mt) Car Transfer (QC): 6 (met) Does the Patient Walk: No and Walking Goal NOT indicated Walk 10 feet (QC): 5 (unet) Walk 10ft-Uneven Surface(QC): 4 (unmet) Walk 50ft with 2 Turns (QC): 4 (nmet) Wheel 50 feet with 2 turns (QC: 6 (met) 1 Step (curb) (QC): 4 (unmet) 4 Steps (QC): 4 (unmet) All goals met to a satisfactory level except the gait goals, pt prefers wc for mobiltiy until he obtains a prosthesis. OT Handyman Goals Handyman Goals Time Frame: Oct 06, 2019 Eating (QC): 6 Oral Hygiene (QC): 6 Shower/Bathe Self (QC): 5 Upper Body Dressing (QC): 6 Lower Body Dressing (QC): 6 On/Off Footwear (QC): 6 Toileting Hygiene (QC): 6 Toilet/Commode Transfer (QC): 6 Additional Goals: 1-Demonstrate ADL Tasks, 2-Verbalize Understanding, 3- ImproveStrength/Dhaval 1=Demonstrate adherence to instructed precautions during ADL tasks. 2=Patient will verbalize/demonstrate understanding of assistive devices/modifications for ADL. 3=Patient will improve strength/tolerance for activity to enable patient to perform ADL's. JUANJOSE BANG PT Sep 24, 2019 11:27
--- NOTE | 2019-09-24 11:53 | Therapy Team Discharge Summary ---
Therapy Discharge Summary Discharge Recommendations Date of Discharge Sep 24, 2019 at 09:10 Physical Therapy Patient came to rehab following a left BKA. Upon evaluation patient performed bed mobility with independence, supine <-> sit with SBA, sit <-> stand with CGA, transfers with CGA, toilet transfer CGA, car transfer CGA, ambulated 10' with a rolling walker with CGA, and propelled a manual WC 150' with SBA. Patient has been performing bed mobility and transfer training, balance and endurance training, functional strengthening, gait training, and education. 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 Now, patient performs bed mobility and transfers with independence, car transfer independent, independent with WC mobility. Patient has discharged from this facility and will be discharged from PT at this time. Occupational Therapy Decreased Activ Tolerance, Decreased UE Strength, Impaired Funct Balance, Impaired Self-Care Skills PT Senior Care Goals Senior Care Goals PT Senior Care Goals Time Frame: Oct 05, 2019 Roll Left to Right (QC): 6 (met) Sit to Lying (QC): 6 (met) Lying-Sitting on Side/Bed(QC): 6 (met) Sit to Stand (QC): 6 (met) Chair/Rfb-kh-Pdsyj Xfer(QC): 6 (mt) Car Transfer (QC): 6 (met) Does the Patient Walk: No and Walking Goal NOT indicated Walk 10 feet (QC): 5 (unet) Walk 10ft-Uneven Surface(QC): 4 (unmet) Walk 50ft with 2 Turns (QC): 4 (nmet) Wheel 50 feet with 2 turns (QC: 6 (met) 1 Step (curb) (QC): 4 (unmet) 4 Steps (QC): 4 (unmet) OT Senior Care Goals Senior Care Goals Time Frame: Oct 06, 2019 Eating (QC): 6 Oral Hygiene (QC): 6 Shower/Bathe Self (QC): 5 Upper Body Dressing (QC): 6 Lower Body Dressing (QC): 6 On/Off Footwear (QC): 6 Toileting Hygiene (QC): 6 Toilet/Commode Transfer (QC): 6 Additional Goals: 1-Demonstrate ADL Tasks, 2-Verbalize Understanding, 3- ImproveStrength/Dhaval 1=Demonstrate adherence to instructed precautions during ADL tasks. 2=Patient will verbalize/demonstrate understanding of assistive devices/modifications for ADL. 3=Patient will improve strength/tolerance for activity to enable patient to perform ADL's. NELLY STREET PT Sep 24, 2019 11:53
== END 2019-09-24 09:10 | disposition home health service (06) | DRG 561 ==
PROVIDERS: ADMIT Internal Medicine; ATTEND Internal Medicine
DX: Z47.81 Encounter for orthopedic aftercare following surgical amputation (principal); Z89.512 Acquired absence of left leg below knee; E11.65 Type 2 diabetes mellitus with hyperglycemia; E11.40 Type 2 diabetes mellitus with diabetic neuropathy, unspecified; G47.33 Obstructive sleep apnea (adult) (pediatric); E78.5 Hyperlipidemia, unspecified; I10 Essential (primary) hypertension; I73.9 Peripheral vascular disease, unspecified; I25.10 Atherosclerotic heart disease of native coronary artery without angina pectoris; E66.9 Obesity, unspecified; Z68.31 Body mass index [BMI] 31.0-31.9, adult; Z79.4 Long term (current) use of insulin; I25.2 Old myocardial infarction; Z95.5 Presence of coronary angioplasty implant and graft
CPT/HCPCS: 36415; 80053; 82962; 85025

== ENCOUNTER → 2019-12-01 | Outpatient (CLI) | payer MEDICARE ==
[~2019-12-01] MED LIST changes: +ASPI325T32 PO; +CLOP75TA69 PO; +GABA-486 PO; -GLIM2TAB2 PO; +GLIM2TAB4 PO; +MELO7.5T46 PO; +POLY17PO6 PO; +SENN-145 PO; +SITA100T12 PO
== END ==
LOC: LABNPT 13:47
PROVIDERS: ATTEND Internal Medicine
DX: Z01.89 Encounter for other specified special examinations (principal)
CPT/HCPCS: 84145

== ENCOUNTER → 2021-12-05 | Outpatient (CLI) | payer MEDICARE ==
[~2021-12-05] MED LIST changes: +ASPI-1238 PO; -ASPI-983 PO; +REGADENOSON 0.4 MG/5 ML SYR (LEXISCAN) IV ONE
[2021-12-05 12:46] VITALS: BP 168/63
--- NOTE | 2021-12-08 10:45 | STRESS TEST ---
DATE OF SERVICE: 12/05/2021 RESTING AND POST REGADENOSON TECHNETIUM-99M TETROFOSMIN SPECT CT IMAGING ORDERING PHYSICIAN: Kami Lazaro APRN PRIMARY PHYSICIAN: Dr. Reaves. CLINICAL DIAGNOSIS: Shortness of breath. Baseline images were carried out after injection of 10.1 mCi of technetium-99m Tetrofosmin. This was followed by 0.4 mg Regadenoson and 31.4 mCi of technetium-99m Tetrofosmin for stress imaging. The electrocardiogram showed sinus rhythm at baseline. It did not change significantly with the Regadenoson infusion. The patient tolerated the procedure well. Review of images at rest and following stress indicate a predominantly transient inferolateral perfusion defect. SDS is 6. Gated images show a normal global left ventricular systolic function with normal regional wall motion. Left ventricular ejection fraction is calculated to be 71%. CONCLUSIONS: 1. This study is indicative of a moderate amount of inferolateral ischemia 2. Normal regional wall motion. 3. Normal global left ventricular systolic function with a calculated ejection fraction 71%. Job ID: [id number] DocumentID: [id number] Dictated Date: 12/08/2021 09:38:30 [employer] Date: 12/08/2021 10:44:48 Dictated By: JAX العراقي MD, MA, FACP, FACC, MTDD
== END ==
LOC: CARD 10:42
PROVIDERS: ATTEND Nurse Practitioner Family
DX: I51.7 Cardiomegaly (principal); I25.10 Atherosclerotic heart disease of native coronary artery without angina pectoris
CPT/HCPCS: 78452; 93017; 93306; A9502

== ENCOUNTER 2021-12-19 09:06 | Day surgery (SDC) | payer MEDICARE ==
[2021-12-19] VITALS (12 sets, daily range): BP systolic 114–158; BP diastolic 62–83
[~2021-12-19] VITALS: Ht 182.8 cm; Wt 111.4 kg
[~2021-12-19 09:06] MED LIST changes: -REGADENOSON 0.4 MG/5 ML SYR (LEXISCAN) IV ONE
[2021-12-19] MEDS ORDERED: LIDOCAINE 1% INJ 20 ML VIAL ONE (09:23)
[2021-12-19] MEDS ORDERED: HEParin (CATH LAB) 2,000 ML IV ONE (09:23)
[2021-12-19] MEDS ORDERED: NS IV 1000 ML 1,000 ML ONE (09:23)
[2021-12-19] MEDS ORDERED: NS IV 1000 ML 1,000 ML IV SCH ×2 (09:30→12:30)
[2021-12-19 09:57] LABS: HEMATOCRIT 46 % (40-54); HEMOGLOBIN 15.5 g/dL (13.3-17.7); MEAN CORPUSCULAR HEMOGLOBIN 28 pg (25-34); MEAN CORPUSCULAR HGB CONC 34 g/dL (32-36); MEAN CORPUSCULAR VOLUME 83 fL (80-99); MEAN PLATELET VOLUME 10.2 fL (9.0-12.2); PLATELET COUNT 300 10^3/uL (130-400); WHITE BLOOD COUNT 5.7 10^3/uL (4.3-11.0)
[2021-12-19 10:11] LABS: INR 1.1 (0.8-1.4); PROTHROMBIN TIME PATIENT 14.5 SEC (12.2-14.7)
[2021-12-19 10:12] LABS: ALBUMIN 3.9 GM/DL (3.2-4.5); POTASSIUM 4.8 MMOL/L (3.6-5.0)
[2021-12-19] MEDS ORDERED: TMSL.4C PO (10:13)
[2021-12-19] MEDS ORDERED: SULF1TAB34 PO (10:13)
[2021-12-19] MEDS ORDERED: GLIM4TAB5 PO (10:13)
[2021-12-19] MEDS ORDERED: FINA5TAB6 PO (10:13)
[2021-12-19 10:14] LABS: TOTAL PROTEIN 7.6 GM/DL (6.4-8.2)
[2021-12-19 10:16] LABS: BILIRUBIN,TOTAL 0.8 MG/DL (0.1-1.0)
[2021-12-19] MEDS ORDERED: methylPREDNISolone 125 MG (Solu-MEDROL) VIAL ONE (11:24)
[2021-12-19] MEDS ORDERED: MIDAZOLAM 5 MG/5 ML (VERSED) VIAL ONE (11:24)
[2021-12-19] MEDS ORDERED: fentaNYL INJ 100 MCG/2 ML AMP ONE (11:24)
[2021-12-19] MEDS ORDERED: diphenhydrAMINE 50 MG/ML INJ (BENADRYL) ONE (11:31)
[2021-12-19] MEDS ORDERED: meTOprolol 5 MG/5 ML (LOPRESSOR) VIAL ONE (12:14)
--- NOTE | 2021-12-19 12:24 | Cardiac Procedure Note-CS/ASA ---
Pre-Procedure Note Pre-Op Procedure Note H&P Reviewed The H&P was reviewed, patient examined and no changes noted. Date H&P Reviewed: December 19, 2021 Time H&P Reviewed: 11:50 Conscious Sedation Pre-Proced Time 11:50 ASA Score 3 For ASA 3 and 4: Consider anesthesia and medical clearance. Also, for patients with a history of failed moderate sedation consider anesthesia. Airway Lungs Heart ASA score ASA 1: a normal healthy patient ASA 2: a patient with a mild systemic disease (mid diabetes, controlled hypertension, obesity ASA 3: a patient with a severe systemic disease that limits activity (angina, COPD, prior Myocardial infarction) ASA 4: a patient with an incapacitating disease that is a constant threat to life (CHF, renal failure) ASA 5: a moribund patient not expected to survive 24 hrs. (ruptured aneurysm) ASA 6: a declared brain- patient whose organs are being harvested. For emergent operations, add the letter E after the classification Mallampati Classification Grade 2 Sedation Plan Analgesia, Amnesia, Plan communicated to team members, Discussed options with patient/fam, Discussed risks with patient/fam The patient is an appropriate candidate to undergo the planned procedure, sedation, and anesthesia. The patient immediately re-assessed prior to indication. JAX العراقي MD FACP FAC CCDS December 19, 2021 12:24
[2021-12-19] MEDS ORDERED: PATIENT MAY USE OWN MEDS, ALL PO SCH (12:30)
[2021-12-19] MEDS ORDERED: FURO40TA4 PO (12:50)
[2021-12-19] MEDS ORDERED: AMLO5TAB4 PO (12:50)
[2021-12-19] MEDS ORDERED: POTA10TA37 PO (12:50)
[2021-12-19] MEDS ORDERED: METO-352 PO (12:50)
--- NOTE | 2021-12-19 12:51 | Discharge Inst-Cardiology ---
Discharge Inst-Cardiac Discharge Medications New Medications: Amlodipine Besylate (Norvasc) 5 Mg Tablet 5 MG PO DAILY, #30 TAB 5 Refills Furosemide (Furosemide) 40 Mg Tablet 40 MG PO DAILY, #30 TAB 5 Refills Metoprolol Succinate (Toprol Xl) 50 Mg Tab.er.24h 50 MG PO DAILY, #30 TAB 5 Refills Potassium Chloride (Potassium Chloride) 10 Meq Tab.er.prt 10 MEQ PO DAILY, #30 TAB 5 Refills Continued Medications: Acetaminophen (Acetaminophen) 500 Mg Tablet 1000 MG PO Q6H PRN for PAIN-MILD, TAB TAKES 2 (500 MG) TABLETS Aspirin (Aspirin) 81 Mg Tab.chew 81 MG PO DAILY, #30 TAB Atorvastatin Calcium (Atorvastatin Calcium) 20 Mg Tablet 20 MG PO DAILY, TAB Clopidogrel Bisulfate (Plavix) 75 Mg Tablet 75 MG PO DAILY, TAB Finasteride (Finasteride) 5 Mg Tablet 5 MG PO DAILY, TAB Gabapentin (Gabapentin) 100 Mg Capsule 200 MG PO TID, #90 CAP Glimepiride (Glimepiride) 4 Mg Tablet 4 MG PO DAILY, TAB Insulin Detemir (Levemir Flextouch) 100 Unit/1 Ml Insuln.pen 72 UNITS SQ HS Sitagliptin Phosphate (Januvia) 100 Mg Tablet 100 MG PO DAILY, TAB Sulfamethoxazole/Trimethoprim (Bactrim 400-80 mg Tablet) 400 Mg-80 Mg Tablet 0.5 TAB PO HS, TAB Tamsulosin HCl (Flomax) 0.4 Mg Cap 0.4 MG PO DAILY, CAP Discontinued Medications: Metoprolol Succinate (Metoprolol Succinate) 25 Mg Tab.er.24h 25 MG PO DAILY, TAB JAX العراقي MD FACP [facility] CCDS December 19, 2021 12:51
--- NOTE | 2021-12-19 12:51 | Discharge Inst-Post CATH ---
Discharge Inst-CATH/EP Post Cardiac Cath/EP D/C Inst Follow Up/Plan F/u with Dr Callejas in 2-3 weeks ACTIVITY * Go Home directly and rest. * Limit activity of the leg (or wrist if it was used) for 7 days including aerobics, swimming, jogging, bicycling, etc. * Restrict stair-climbing for 7 days if possible, if not, climb up with your non-cath leg, then bring together on the same step. * Avoid lifting, pushing, pulling or excessive movement of the affected e xtremity for 7 days. * Customary sexual activity may be resumed after 2 days-use caution not to use a position that strains or causes pain to the affected extremity. * No driving for 24 hours. * NO SMOKING. * Avoid straining for bowel movements for 7 days. * Gentle walking on level ground is allowed. * Returning to work will depend on the type of procedure and the results. Your doctor will discuss this with you. CALL YOUR DOCTOR FOR ANY OF THE FOLLOWING: *If bleeding from the puncture site occurs- Apply gentle pressure to site with clean cloth and call your doctor or EMS. * If a knot or lump forms under the skin, increases in size, or causes pain. * If bruising appears to be worsening or moving further down your leg instead of disappearing. * Temperature above 101 F. CARE OF YOUR GROIN INCISION; * Bruising or purple discoloration of the skin near the puncture site is common. * You may shower only, no bathtub bathing for 5 days. Be careful to avoid slipping as your leg may feel stiff. * If a closure device was used on your femoral artery, please see the attached guide regarding care of the device and your leg. * Leave dressing on FOR 24 hours. CARE OF YOUR WRIST INCISION; * Bruising or purple discoloration of the skin near the puncture site is common. * You may shower. * DO NOT submerge wrist. * Leave dressing on FOR 24 hours. JAX CALLEJAS MD FACP FAC CCDS December 19, 2021 12:51
[2021-12-19] MEDS ORDERED: NITR0.4T39 SL (12:53)
--- NOTE | 2021-12-19 13:23 | CARDIAC CATHETERIZATION ---
DATE OF SERVICE: 12/19/2021 CARDIAC CATHETERIZATION The patient is an 81-year-old gentleman with a history of coronary artery disease. He has multiple coronary artery disease risk factors. He has had increasing shortness of breath in the recent past. A myocardial perfusion imaging study carried out on 12/05/2021 showed moderate amount of inferolateral ischemia. Left ventricular ejection fraction was 71%. Cardiac catheterization was recommended. Informed consent was obtained. DESCRIPTION OF PROCEDURE: He was brought to the cardiac catheterization laboratory in a fasting state. Right groin was prepared and draped in the usual sterile fashion. Lidocaine 1% was used for local anesthesia. Modified Seldinger technique was used to advance a 5-Malawian sheath in right femoral artery, 5-Malawian JL4 catheter was used for left coronary angiography, 5-[place]ian JR4 catheter was used for right coronary angiography, 5-Malawian pigtail catheter was used for left heart catheterization and left ventricular angiography. Angiography of the right femoral artery had been carried out through the sheath at the beginning of the procedure. At the end of the procedure, Mynx was used to achieve hemostasis. HEMODYNAMICS: Left ventricular end-diastolic pressure following coronary angiography was 24 mmHg. There is no significant pressure gradient on pullback across the aortic valve. Ascending aortic pressure was 191/94 with a mean 140 mmHg. CORONARY ANGIOGRAPHY: Left main coronary artery exhibits approximately 50 to 60% distal stenosis. The proximal and ostial left anterior descending artery exhibits approximately 60% stenosis. There appears to be a patent stent in the proximal left anterior descending. The mid and distal left anterior descending artery is of a relatively small caliber and is severely diseased. There are multiple stenoses of up to 80 to 90% within the left anterior descending and within a sub-branch of the first diagonal. The left circumflex artery has approximately 80% stenosis at its ostium and in its proximal portion. This is a relatively small caliber vessel. The distal left circumflex artery has stenoses of up to 80 to 90%. The right coronary artery is dominant. It has patent stents in its proximal and mid to distal portions. These are intact and do not exhibit significant stent restenosis. There is moderate diffuse disease of this dominant right coronary artery. LEFT VENTRICULAR ANGIOGRAPHY: Left ventricular angiography was carried out in the right anterior oblique projection. Global left ventricular systolic function appears to be well preserved. No distinct regional wall motion abnormalities are seen. Left ventricular ejection fraction approximately 60%. CONCLUSIONS: 1. A 50 to 60% distal left main coronary artery and proximal left anterior descending artery stenosis. The mid and distal left anterior descending and the diagonal branches are of small caliber and have multiple stenoses of up to 80 to 90%. The left circumflex artery is of a small caliber and has 80% ostial and proximal and multiple distal stenosis of up to approximately 90%. The right coronary artery is large and dominant and has patent stent in its proximal and in the mid to distal segments. 2. Well preserved global left ventricular systolic function with ejection fraction approximately 60%. 3. Elevated left ventricular end-diastolic pressure. DISCUSSION AND RECOMMENDATIONS: Because of severe distal disease in the left coronary system, this does not appear to be suitable situation for coronary artery bypass surgery. Medical therapy appears reasonable, but we have sought another opinion from Dr. Aquino at [facility] to see if some intervention can be taken to the proximal left coronary system. Left ventricular end-diastolic pressure is considerably elevated. Blood pressure was also found to be considerably elevated. We are treating for hypertension and congestive heart failure and medical therapy for coronary artery disease. Close outpatient followup is advised. Job ID: [id number] DocumentID: [id number] Dictated Date: 12/19/2021 12:45:08 Cutter Barrel Drum Date: 12/19/2021 13:23:02 Dictated By: JAX العراقي MD, MA, FACP, FACC,
[2021-12-19] MEDS ORDERED: amLODIPine 5 MG (NORVASC) TAB PO NR (14:34)
[2021-12-19] MEDS ORDERED: meTOproloL SUCCINATE 50 MG (TOPROL XL) TAB PO NR (14:35)
== END 2021-12-19 16:35 | disposition home or self-care (01) ==
LOC: CATH 09:06 → ICU 13:05 → CATH 16:35
PROVIDERS: ATTEND Internal Medicine Cardiovascular Disease
DX: I25.10 Atherosclerotic heart disease of native coronary artery without angina pectoris (principal); I25.2 Old myocardial infarction; I73.9 Peripheral vascular disease, unspecified; I65.23 Occlusion and stenosis of bilateral carotid arteries; I34.0 Nonrheumatic mitral (valve) insufficiency; E11.9 Type 2 diabetes mellitus without complications; E66.9 Obesity, unspecified; E78.2 Mixed hyperlipidemia; Z87.891 Personal history of nicotine dependence; Z95.5 Presence of coronary angioplasty implant and graft; Z68.33 Body mass index [BMI] 33.0-33.9, adult; Z89.512 Acquired absence of left leg below knee
CPT/HCPCS: 80053; 80061; 85027; 85610; 85730; 87081; 93005; 93458; C1760; C1894; 36415

== ENCOUNTER → 2023-02-26 | Outpatient (CLI) | payer MEDICARE ==
[~2023-02-26] MED LIST changes: +AMLO5TAB4 PO; +CLOP-31 PO; -CLOP75TA69 PO; +FINA5TAB6 PO; +FURO40TA4 PO; +GLIM4TAB5 PO; -INSU100I29 SQ; +INSU100I30 SQ; +METO-352 PO; +NITR0.4T39 SL; +POTA-177 PO; +SULF1TAB34 PO; +TMSL.4C PO
[2023-02-26 13:47] LABS: ABSOLUTE RETIC # 84 10e9/uL (24-90); BASOPHILS % (AUTO) 0 % (0-10); EOSINOPHILS % (AUTO) 0 % (0-10); HEMATOCRIT 42 % (40-54); HEMOGLOBIN 14.4 g/dL (13.3-17.7); LYMPHOCYTES # (AUTO) 1.6 10^3/uL (1.0-4.0); LYMPHOCYTES % (AUTO) 54 % (12-44); MEAN CORPUSCULAR HEMOGLOBIN 29 pg (25-34); MEAN CORPUSCULAR HGB CONC 34 g/dL (32-36); MEAN CORPUSCULAR VOLUME 84 fL (80-99); MEAN PLATELET VOLUME 10.6 fL (9.0-12.2); MONOCYTES # (AUTO) 0.3 10^3/uL (0.0-1.0); MONOCYTES % (AUTO) 9 % (0-12); NEUTROPHILS % (AUTO) 34 % (42-75); PLATELET COUNT 224 10^3/uL (130-400); RETICULOCYTE % 1.68 % (0.50-2.40)
[2023-02-26 14:02] LABS: EOSINOPHILS % (MANUAL) 1 %; LYMPHOCYTES % (MANUAL) 52 %; MONOCYTES % (MANUAL) 11 %; NEUTROPHILS % (MANUAL) 29 %; RBC MORPH NORMAL; REACTIVE LYMPHOCYTES 7 %
== END ==
LOC: LABNPT 13:32
PROVIDERS: ATTEND Family Medicine
DX: Z01.89 Encounter for other specified special examinations (principal)
CPT/HCPCS: 85007; 85027; 85045; 85055